=== PATIENT | male | born 1965 | race Caucasian/White ===

== ENCOUNTER 2016-08-30 19:56 | Inpatient (IN) | payer SELFPAY ==
--- NOTE | 2016-08-30 20:14 | HP ---
CIWA Score - CIWA Score Nausea/Vomitin Muscle Tremors: 2 Anxiety: 3 Agitation: 4-Moderately Restless Paroxysmal Sweats: 2 Orientation: 0-Oriented Tacttile Disturbances: 0-None Auditory Disturbances: 0-None Visual Disturbances: 0-None Headache: 1-Very Mild CIWA-Ar Total Score: 14 Admission ROS BHS - HPI Chief Complaint: WITHDRAWAL SYMPTOMS Allergies/Adverse Reactions: Allergies Allergy/AdvReac Type Severity Reaction Status Date / Time No Known Allergies Allergy Verified 08/30/16 20:16 History of Present Illness: 51 Y.O. MAN WITH AN EXTENSIVE HISTORY OF ALCOHOL DEPENDENCE IS SEEKING DETOX. THIS IS HIS FIRST TIME IN DETOX. THE PT. WAS DISCHARGED EARLIER IN THE DAY FROM [facility], WHERE HE WAS ADMITTED OVERNIGHT FOR INTOXICATION. HE REPORTS HAVING A 4 YEAR PERIOD OF SOBRIETY AND HAVING RECENTLY RELAPSED. Exam Limitations: No Limitations - Ebola screening Have you traveled outside of the country in the last 21 days: No (N) Have you had contact with anyone from an Ebola affected area: No Do you have a fever: No - Review of Systems Constitutional: Chills, Night Sweats, Changes in sleep EENT: reports: No Symptoms Reported Respiratory: reports: Shortness of Breath (H/O CHRONIC BRONCHITIS) Cardiac: reports: No Symptoms Reported GI: reports: No Symptoms Reported : reports: No Symptoms Reported Musculoskeletal: reports: Muscle Weakness Integumentary: reports: Bruising (B/L ARMS) Neuro: reports: Tremors Endocrine: reports: No Symptoms Reported Hematology: reports: No Symptoms Reported Psychiatric: reports: Orientated x3, Anxious, Depressed Other Systems: Reviewed and Negative Patient History - Patient Medical History Hx Anemia: No Hx Asthma: No Hx Chronic Obstructive Pulmonary Disease (COPD): Yes (CHRONIC BRONCHITIS ) Hx Cancer: No Hx Cardiac Disorders: No Hx Congestive Heart Failure: No Hx Hypertension: Yes (NOT NOT MEDS ) Hx Hypercholesterolemia: No Hx Pacemaker: No HX Cerebrovascular Accident: No Hx Seizures: No Hx Dementia: No Hx Diabetes: No Hx Gastrointestinal Disorders: No Hx Liver Disease: No Hx Genitourinary Disorders: No Hx Sexually Transmitted Disorders: No Hx Renal Disease (ESRD): No Hx Thyroid Disease: No Hx Human Immunodeficiency Virus (HIV): No Hx Hepatitis C: No Hx Depression: Yes Hx Suicide Attempt: No Hx Bipolar Disorder: No Hx Schizophrenia: No - Patient Surgical History Past Surgical History: Yes Hx Neurologic Surgery: No Hx Cataract Extraction: No Hx Cardiac Surgery: No Hx Lung Surgery: No Hx Breast Surgery: No Hx Breast Biopsy: No Hx Abdominal Surgery: No Hx Appendectomy: No Hx Cholecystectomy: No Hx Genitourinary Surgery: No Hx Orthopedic Surgery: Yes (B/L HIP REPLACEMENTS-1996) Anesthesia Reaction: No - PPD History Previous Implant?: Yes Documented Results: Negative w/o proof PPD to be Administered?: Yes - Reproductive History Patient is a Female of Child Bearing Age (11 -55 yrs old): No - Smoking Cessation Smoking history: Former smoker Have you smoked in the past 12 months: No Hx Chewing Tobacco Use: No Initiated information on smoking cessation: No - Substance & Tx. History Hx Alcohol Use: Yes Hx Substance Use: Yes Substance Use Type: Alcohol, Tranquilizers Hx Substance Use Treatment: Yes (REHAB ) - Substances Abused Alcohol Route: Oral Frequency: Daily Amount used: 2 PINTS OF VODKA Age of first use: 14 Date of Last Use: 08/29/16 XANAX Route: Oral Frequency: Daily Amount used: 2-6 MG Age of first use: 31 Date of Last Use: 08/30/16 Family Disease History - Family Disease History Family Disease History: Heart Disease: Mother (AFIB ), CA: Father (LUNG CA- ), Respiratory: Brother (ALCOHOL DEPENDENCE ), Other: Brother Admission Physical Exam [facility] - Vital Signs Vital Signs: Vital Signs 08/30/16 21:55 Temperature 97.7 F Pulse Rate 100 H Respiratory 18 Rate Blood Pressure 157/88 - Physical General Appearance: Yes: Anxious HEENTM: Yes: Hearing grossly Normal, Normal ENT Inspection, Normocephalic, Normal Voice Respiratory: Yes: Chest Non-Tender, Lungs Clear, Normal Breath Sounds, No Respiratory Distress, No Accessory Muscle Use Neck: Yes: No masses,lesions,Nodules, Trachea in good position Breast: Yes: Breast Exam Deferred Cardiology: Yes: Regular Rhythm, Regular Rate, S1, S2 Abdominal: Yes: Normal Bowel Sounds, Non Tender, Flat, Soft Genitourinary: Yes: Within Normal Limits Back: Yes: Normal Inspection Musculoskeletal: Yes: Muscle Pain Extremities: Yes: Normal Inspection, Normal Range of Motion, Non-Tender Neurological: Yes: Fully Oriented, Alert, Normal Mood/Affect, Normal Response Integumentary: Yes: Normal Color, Dry, Warm Lymphatic: Yes: Within Normal Limits - Diagnostic (1) Alcohol dependence with uncomplicated withdrawal Current Visit: Yes Status: Chronic (2) Sedative, hypnotic or anxiolytic dependence with withdrawal, uncomplicated Current Visit: Yes Status: Chronic (3) Hypertension Current Visit: Yes Status: Chronic (4) Chronic bronchitis Current Visit: Yes Status: Chronic Cleared for Admission BHS - Detox or Rehab S Level of Care: Medically Managed Detox Regimen/Protocol: Valium BHS Breath Alcohol Content Breath Alcohol Content: 0 Vital Signs - Vital Signs Vital Signs Refused: No Temperature: 97.7 F Temperature Source: Oral Pulse Rate: 100 Respiratory Rate: 18 Blood Pressure: 157/88 BP Location: Left Arm - Height Height: 6 ft - Weight Weight: 205 lb Weight Measurement Method: Standing Scale Body Mass Index (BMI): 27.8 Urine Drug Screen - Test Device Lot Number: [id number] Expiration Date: 05/13/18 - Control Is Test Valid: Yes - Results Drug Screen Negative: No Urine Drug Screen Results: RONNY-Cocaine, BZO-Benzodiazepines
[2016-08-30] MEDS ORDERED: ACETAMINOPHEN 325 MG TABLET (FP) PO PRN (20:36)
[2016-08-30] MEDS ORDERED: IBUPROFEN 400 MG TABLET (FP) PO PRN (20:36)
[2016-08-30] MEDS ORDERED: guaiFENesin/D-METHORPHAN HB 10 ML UNIT-DOSE CUPS PO PRN (20:36)
[2016-08-30] MEDS ORDERED: MAGNESIUM HYDROX 2400MG/30ML ORAL SUSPENSION 30 ML CUP PO PRN (20:36)
[2016-08-30] MEDS ORDERED: MAGNESIUM CITRATE 300 ML BOTTLE PO PRN (20:36)
[2016-08-30] MEDS ORDERED: MENTHOL/PHENOL 1 EACH UD MM PRN (20:36)
[2016-08-30] MEDS ORDERED: hydrOXYzine PAMOATE 50 MG CAPSULE (FP) PO PRN (20:36)
[2016-08-30] MEDS ORDERED: MAG HYDROX/AL HYDROX/SIMETH 30 ML UNIT-DOSE CUP PO PRN (20:36)
[2016-08-30] MEDS ORDERED: diphenhydrAMINE HCL 50 MG CAPSULE PO PRN (20:36)
[2016-08-30] MEDS ORDERED: LOPERAMIDE HCL 2 MG CAPSULE PO PRN (20:36)
[2016-08-30] MEDS ORDERED: P-EPHED 60MG/TRIPROLIDI 2.5MG TABLET PO PRN (20:36)
[2016-08-30] MEDS ORDERED: diazePAM 5 MG TABLET PO ONE (20:36)
[2016-08-30 20:43] VITALS: BMI 27.8
[2016-08-30] MEDS: THIAMINE HCL 100 MG TABLET (FP) PO SCH (23:10)
[2016-08-30] MEDS ORDERED: cloNIDine HCL 0.1 MG TABLET PO PRN (23:18)
[2016-08-30] MEDS: diazePAM 5 MG TABLET PO SCH (23:50)
[2016-08-31] MEDS: diazePAM 5 MG TABLET PO SCH ×3 (05:58→22:20)
[2016-08-31 10:07] LABS: URINE APPEARANCE CLEAR; URINE BILIRUBIN NEGATIVE (NEGATIVE); URINE BLOOD NEGATIVE (NEGATIVE); URINE COLOR YELLOW; URINE GLUCOSE (UA) NEGATIVE (NEGATIVE); URINE KETONE NEGATIVE (NEGATIVE); URINE LEUK ESTERASE NEGATIVE (NEGATIVE); URINE NITRITE NEGATIVE (NEGATIVE); URINE PROTEIN NEGATIVE (NEGATIVE); URINE UROBILINOGEN NEGATIVE E.U./dl (0.2-1.0)
[2016-08-31 10:08] LABS: MCH 32.4 pg (25.7-33.7); MCHC 33.9 g/dl (32.0-35.9); MEAN CELL VOLUME 95.7 fl (80-96); MEAN PLT VOLUME 8.4 fl (7.5-11.1); PLATELET COUNT 192 K/MM3 (134-434); RDW 12.8 % (11.9-15.9); WHITE BLOOD COUNT 8.4 K/mm3 (4.0-10.0)
--- NOTE | 2016-08-31 10:14 | PN ---
S CIWA - CIWA Score Nausea/Vomitin Muscle Tremors: 2 Anxiety: 2 Agitation: 2 Paroxysmal Sweats: 3 Orientation: 0-Oriented Tacttile Disturbances: 2-Mild Itch/Numbness/Burn Auditory Disturbances: 0-None Visual Disturbances: 0-None Headache: 0-None Present CIWA-Ar Total Score: 13 BHS Progress Note (SOAP) Subjective: interrupted sleep, sweats, tired , weaknesss Objective: 08/31/16 10:12 Vital Signs Temperature 98.1 F 08/31/16 10:10 Pulse Rate 77 08/31/16 10:10 Respiratory Rate 18 08/31/16 10:10 Blood Pressure 168/95 08/31/16 10:10 O2 Sat by Pulse Oximetry (%) Laboratory Tests 08/31/16 07:00 Urine Color Yellow Urine Appearance Clear Urine pH 6.0 Ur Specific [place] 1.027 Urine Protein Negative Urine Glucose (UA) Negative Urine Ketones Negative Urine Blood Negative Urine Nitrite Negative Urine Bilirubin Negative Urine Urobilinogen Negative Ur Leukocyte Esterase Negative pending labs pt aox3 in nad, lying in bed Assessment: 08/31/16 10:13 withdrawal sx;s Plan: cont. detox increase fluids
[2016-08-31] MEDS: PRENATAL VITAMINS W/ FOLIC ACID TABLET (FP) PO SCH (10:30)
[2016-08-31] MEDS: diazePAM 5 MG TABLET PO PRN ×2 (10:32→17:36)
[2016-08-31 10:42] LABS: ALBUMIN 3.8 g/dl (3.4-5.0); ALK PHOS 48 U/L (45-117); ANION GAP 10 (8-16); BILIRUBIN,TOTAL 1.1 mg/dL (0.2-1.0); CALCIUM 9.2 mg/dL (8.5-10.1); CO2 30 mmol/L (21-32); CREATININE 0.8 mg/dL (0.7-1.3); GLUCOSE,RANDOM 98 mg/dL (74-106); SGOT/AST 30 U/L (15-37); SGPT/ALT 38 U/L (12-78); TOT PROT 6.4 g/dl (6.4-8.2)
[2016-08-31 11:48] LABS: HIV 1 AGp24 NEGATIVE
[2016-08-31 11:49] LABS: HIV 1 & 2 AB NEGATIVE
[2016-08-31] MEDS: ALBUTEROL SO4 6.7 GM HFA INHALER IH PRN (17:36)
[2016-08-31] MEDS: THIAMINE HCL 100 MG TABLET (FP) PO SCH (22:20)
[2016-09-01] MEDS: diazePAM 5 MG TABLET PO PRN ×3 (03:50→18:43)
[2016-09-01] MEDS: cloNIDine HCL 0.1 MG TABLET PO SCH ×2 (10:29→22:15)
[2016-09-01] MEDS: diazePAM 5 MG TABLET PO SCH ×2 (10:29→22:15)
[2016-09-01] MEDS: PRENATAL VITAMINS W/ FOLIC ACID TABLET (FP) PO SCH (10:29)
--- NOTE | 2016-09-01 10:47 | PN ---
S CIWA - CIWA Score Nausea/Vomitin-No Nausea/No Vomiting Muscle Tremors: 4-Moderate,w/Arms Extend Anxiety: 3 Agitation: 4-Moderately Restless Paroxysmal Sweats: 3 Orientation: 0-Oriented Tacttile Disturbances: 0-None Auditory Disturbances: 0-None Visual Disturbances: 0-None Headache: 0-None Present CIWA-Ar Total Score: 14 BHS Progress Note (SOAP) Subjective: shakes sweats irritable dry throat anxious interrupted sleep i need to see psych for my panic attacks Objective: 09/01/16 10:45 Vital Signs Temperature 97.8 F 09/01/16 09:49 Pulse Rate 76 09/01/16 09:49 Respiratory Rate 18 09/01/16 09:49 Blood Pressure 160/97 09/01/16 09:49 O2 Sat by Pulse Oximetry (%) Laboratory Tests 08/31/16 08/31/16 08/31/16 07:00 07:00 07:00 WBC 8.4 RBC 4.18 Hgb 13.6 Hct 40.0 MCV 95.7 MCHC 33.9 RDW 12.8 Plt Count 192 MPV 8.4 Sodium 143 Potassium 3.7 Chloride 103 Carbon Dioxide 30 Anion Gap 10 BUN 19 H Creatinine 0.8 Creat Clearance w eGFR > 60 Random Glucose 98 Calcium 9.2 Total Bilirubin 1.1 H AST 30 ALT 38 Alkaline Phosphatase 48 Total Protein 6.4 Albumin 3.8 Urine Color Urine Appearance Urine pH Ur Specific [place] Urine Protein Urine Glucose (UA) Urine Ketones Urine Blood Urine Nitrite Urine Bilirubin Urine Urobilinogen Ur Leukocyte Esterase RPR Titer Nonreactive HIV 1&2 Antibody Screen HIV P24 Antigen 08/31/16 08/31/16 07:00 07:00 WBC RBC Hgb Hct MCV MCHC RDW Plt Count MPV Sodium Potassium Chloride Carbon Dioxide Anion Gap BUN Creatinine Creat Clearance w eGFR Random Glucose Calcium Total Bilirubin AST ALT Alkaline Phosphatase Total Protein Albumin Urine Color Yellow Urine Appearance Clear Urine pH 6.0 Ur Specific [place] 1.027 Urine Protein Negative Urine Glucose (UA) Negative Urine Ketones Negative Urine Blood Negative Urine Nitrite Negative Urine Bilirubin Negative Urine Urobilinogen Negative Ur Leukocyte Esterase Negative RPR Titer HIV 1&2 Antibody Screen Negative HIV P24 Antigen Negative awake/alert ambulating no acute distress Assessment: 09/01/16 10:46 withdrawal sx Plan: continue detox increase fluids throat lozenges prn psych ordered
--- NOTE | 2016-09-01 16:57 | EKG ---
Test Reason : Blood Pressure : / mmHG Vent. Rate : 079 BPM Atrial Rate : 079 BPM P-R Int : 168 ms QRS Dur : 106 ms QT Int : 366 ms P-R-T Axes : 034 -28 050 degrees QTc Int : 419 ms NORMAL SINUS RHYTHM POSSIBLE ANTEROSEPTAL INFARCT , AGE UNDETERMINED ABNORMAL ECG NO PREVIOUS ECGS AVAILABLE Confirmed by CONRAD PRESCOTT, TOIN ([id number]) on 09/01/2016 4:57:04 PM Referred By: Confirmed By:TONI MARTINES MD
--- NOTE | 2016-09-01 16:57 | EKG ---
Test Reason : Blood Pressure : / mmHG Vent. Rate : 073 BPM Atrial Rate : 073 BPM P-R Int : 170 ms QRS Dur : 108 ms QT Int : 392 ms P-R-T Axes : 064 -40 039 degrees QTc Int : 431 ms NORMAL SINUS RHYTHM WITH SINUS ARRHYTHMIA LEFT AXIS DEVIATION ABNORMAL ECG WHEN COMPARED WITH ECG OF 30-AUG-2016 20:36, R PROGRESSION HAS CHANGED, ? LEAD PLACEMENT Confirmed by TONI MARTINES MD ([id number]) on 09/01/2016 4:56:40 PM Referred By: Confirmed By:TONI MARTINES MD
--- NOTE | 2016-09-01 18:39 | CONSULT ---
[facility] Psychiatric Consult - Data Date of interview: 09/01/16 Admission source: [facility] Identifying data: First admission to [facility] for this 51 y/o male seeking detox treatment for alcohol,xanax and cocaine dependence. Substance Abuse History: - Smoking Cessation. Smoking history: Former smoker. Have you smoked in the past 12 months: No. Hx Chewing Tobacco Use: No. Initiated information on smoking cessation: No. - Substance & Tx. History. Hx Alcohol Use: Yes. Hx Substance Use: Yes. Substance Use Type: Alcohol, Tranquilizers. Hx Substance Use Treatment: Yes (REHAB ). - Substances Abused. Alcohol. Route: Oral. Frequency: Daily. Amount used: 2 PINTS OF VODKA. Age of first use: 14. Date of Last Use: 08/29/16. XANAX. Route: Oral. Frequency: Daily. Amount used: 2-6 MG. Age of first use: 31. Date of Last Use : 08/30/16. Confirmed by patient. Medical History: Bronchitis,hypertension and a history of bilateral hip replacement. Psychiatric History: No history of psychiatric hospitalizations.Diagnosed with Anxiety Disorder.No OPD care.Was initially prescribed xanax but the patient gradually escalated into buying the drug from street dealers.Mr Claudia denies history of suicide attempt (he,however,has a family history of completed suicide : brother committed suicide by jumping out of a window). Physical/Sexual Abuse/Trauma History: Patient denies sexual abuse. Additional Comment: Urine Drug Screen Results: RONNY-Cocaine, BZO- Benzodiazepines.Noted. Mental Status Exam - Mental Status Exam Alert and Oriented to: Time, Place, Person Cognitive Function: Good Patient Appearance: Well Groomed Mood: Hopeful, Euthymic Affect: Appropriate, Normal Range Patient Behavior: Fatigued, Appropriate, Cooperative Speech Pattern: Clear, Appropriate Voice Loudness: Normal Thought Process: Goal Oriented Thought Disorder: Not Present Hallucinations: Denies Suicidal Ideation: Denies Homicidal Ideation: Denies Insight/Judgement: Poor Sleep: Poorly, Difficulty falling asleep Appetite: Good Muscle strength/Tone: Normal Gait/Station: Normal Psychiatric Findings - Problem List ([place] 1, 2,3) (1) Alcohol dependence with uncomplicated withdrawal Current Visit: Yes Status: Acute (2) Sedative, hypnotic or anxiolytic dependence with withdrawal, uncomplicated Current Visit: Yes Status: Acute (3) Cocaine dependence Current Visit: Yes Status: Acute (4) Substance induced mood disorder Current Visit: Yes Status: Suspected (5) Chronic bronchitis Current Visit: Yes Status: Chronic (6) Hypertension Current Visit: Yes Status: Chronic (7) Insomnia Current Visit: Yes Status: Acute - Initial Treatment Plan Initial Treatment Plan: Psychoeducation.Detoxification.Zolpidem 10 mg po hs prn.Patient made aware of parasomnias.Observation.
[2016-09-01] MEDS: THIAMINE HCL 100 MG TABLET (FP) PO SCH (22:15)
[2016-09-01] MEDS: ZOLPIDEM TARTRATE 5 MG TABLET PO PRN (22:15)
[2016-09-02] MEDS: diazePAM 5 MG TABLET PO PRN ×4 (02:39→16:55)
[2016-09-02] MEDS: PRENATAL VITAMINS W/ FOLIC ACID TABLET (FP) PO SCH (10:20)
[2016-09-02] MEDS: cloNIDine HCL 0.1 MG TABLET PO SCH ×2 (10:20→22:50)
[2016-09-02] MEDS: diazePAM 5 MG TABLET PO SCH ×2 (10:21→22:50)
--- NOTE | 2016-09-02 11:02 | PN ---
BHS Progress Note (SOAP) Subjective: INTERRUPTED SLEEP, SWEATS, DIARRHEA, ANXIOUS Objective: 09/02/16 11:00 Vital Signs Temperature 98.2 F 09/02/16 09:58 Pulse Rate 82 09/02/16 09:58 Respiratory Rate 20 09/02/16 09:58 Blood Pressure 154/91 09/02/16 09:58 O2 Sat by Pulse Oximetry (%) Laboratory Tests 08/31/16 08/31/16 08/31/16 07:00 07:00 07:00 WBC 8.4 RBC 4.18 Hgb 13.6 Hct 40.0 MCV 95.7 MCHC 33.9 RDW 12.8 Plt Count 192 MPV 8.4 Sodium 143 Potassium 3.7 Chloride 103 Carbon Dioxide 30 Anion Gap 10 BUN 19 H Creatinine 0.8 Creat Clearance w eGFR > 60 Random Glucose 98 Calcium 9.2 Total Bilirubin 1.1 H AST 30 ALT 38 Alkaline Phosphatase 48 Total Protein 6.4 Albumin 3.8 Urine Color Urine Appearance Urine pH Ur Specific [place] Urine Protein Urine Glucose (UA) Urine Ketones Urine Blood Urine Nitrite Urine Bilirubin Urine Urobilinogen Ur Leukocyte Esterase RPR Titer Nonreactive HIV 1&2 Antibody Screen HIV P24 Antigen 08/31/16 08/31/16 07:00 07:00 WBC RBC Hgb Hct MCV MCHC RDW Plt Count MPV Sodium Potassium Chloride Carbon Dioxide Anion Gap BUN Creatinine Creat Clearance w eGFR Random Glucose Calcium Total Bilirubin AST ALT Alkaline Phosphatase Total Protein Albumin Urine Color Yellow Urine Appearance Clear Urine pH 6.0 Ur Specific [place] 1.027 Urine Protein Negative Urine Glucose (UA) Negative Urine Ketones Negative Urine Blood Negative Urine Nitrite Negative Urine Bilirubin Negative Urine Urobilinogen Negative Ur Leukocyte Esterase Negative RPR Titer HIV 1&2 Antibody Screen Negative HIV P24 Antigen Negative PT AOX3 IN NAD , ANXIOUS,AMBULATING Assessment: 09/02/16 11:01 WITHDRAWAL SX;S Plan: CONT. DETOX INCREASE DETOX [facility] PRN
[2016-09-02] MEDS: ALBUTEROL SO4 6.7 GM HFA INHALER IH PRN (18:49)
[2016-09-02] MEDS: ZOLPIDEM TARTRATE 5 MG TABLET PO PRN (22:50)
[2016-09-02] MEDS: THIAMINE HCL 100 MG TABLET (FP) PO SCH (22:50)
--- NOTE | 2016-09-03 09:04 | DS ---
[facility] Detox Discharge Summary Admission Date: 08/30/16 Discharge Date: 09/03/16 - History Present History: Alcohol Dependence, Cocaine Dependence, Sedative Dependence - Physical Exam Results Vital Signs: Vital Signs Temperature 98.8 F 09/03/16 07:16 Pulse Rate 67 09/03/16 07:16 Respiratory Rate 16 09/03/16 07:16 Blood Pressure 121/77 09/03/16 07:16 O2 Sat by Pulse Oximetry (%) - Treatment Hospital Course: Detox Protocol Followed, Detoxed Safely, Responded well, Discharged Condition Good, Rehab Referral Accepted - Medication Discharge Medications: Ambulatory Orders Albuterol Sulfate Inhaler - [Ventolin Hfa Inhaler -] 1 - 2 inh PO Q4H PRN - Diagnosis (1) Alcohol dependence with uncomplicated withdrawal Current Visit: Yes Status: Chronic (2) Cocaine dependence Current Visit: Yes Status: Chronic Qualifiers: Substance use status: uncomplicated Qualified Code(s): F14.20 - Cocaine dependence, uncomplicated (3) Insomnia Current Visit: Yes Status: Acute (4) Sedative, hypnotic or anxiolytic dependence with withdrawal, uncomplicated Current Visit: Yes Status: Chronic (5) Chronic bronchitis Current Visit: Yes Status: Chronic (6) Hypertension Current Visit: Yes Status: Chronic Qualifiers: Hypertension type: essential hypertension Qualified Code(s): I10 - Essential (primary) hypertension (7) Substance induced mood disorder Current Visit: Yes Status: Suspected - AMA Did Patient Leave Against Medical Advice: No
[2016-09-03 09:28] VITALS: BP 125/79; PULSE 74; TEMP 97
[2016-09-03] MEDS ORDERED: diazePAM 5 MG TABLET PO SCH (10:00)
[2016-09-03] MEDS: cloNIDine HCL 0.1 MG TABLET PO SCH (10:40)
[2016-09-03] MEDS: PRENATAL VITAMINS W/ FOLIC ACID TABLET (FP) PO SCH (10:40)
== END 2016-09-03 11:51 | disposition home or self-care (01) | DRG 774 ==
LOC: YASAS 19:56 → Y6N 20:12
PROVIDERS: ADMIT Internal Medicine Addiction Medicine; ATTEND Internal Medicine Addiction Medicine
PROC: HZ2ZZZZ Detoxification Services for Substance Abuse Treatment (ICD-10-PCS; principal; 2016-08-30)
DX: F13.230 Sedative, hypnotic or anxiolytic dependence with withdrawal, uncomplicated (principal); F10.230 Alcohol dependence with withdrawal, uncomplicated; F14.20 Cocaine dependence, uncomplicated; F19.24 Other psychoactive substance dependence with psychoactive substance-induced mood disorder; G47.00 Insomnia, unspecified; J42 Unspecified chronic bronchitis; I10 Essential (primary) hypertension; Z96.643 Presence of artificial hip joint, bilateral; Z87.891 Personal history of nicotine dependence
CPT/HCPCS: 36415; 80053; 81003; 85027; 86593; 87389; 93005; 93010

== ENCOUNTER 2018-09-10 11:37 | Inpatient (IN) | payer SELFPAY ==
[2018-09-10 11:44] VITALS: BMI 28.5
--- NOTE | 2018-09-10 11:49 | HP ---
CIWA Score Nausea/Vomitin Muscle Tremors: 4-Moderate,w/Arms Extend Anxiety: 4-Mod. Anxious/Guarded Agitation: 1-Slight > Activity Paroxysmal Sweats: 1-Minimal Palms Moist Orientation: 0-Oriented Tacttile Disturbances: 0-None Auditory Disturbances: 1-Very Mild Visual Disturbances: 1-Very Mild Sensitivity Headache: 2-Mild CIWA-Ar Total Score: 16 - Admission Criteria OASAS Guidelines: Admission for Medically Managed Detox: Requires at least one of the followin. CIWA greater than 12 2. Seizures within the past 24 hours 3. Delirium tremens within the past 24 hours 4. Hallucinations within the past 24 hours 5. Acute intervention needed for co occurring medical disorder 6. Acute intervention needed for co occurring psychiatric disorder 7. Severe withdrawal that cannot be handled at a lower level of care (continued vomiting, continued diarrhea, abnormal vital signs) requiring intravenous medication and/or fluids 8. Patient presents the following: CIWA greater than 12 Admission Criteria Met: Admission criteria met Admission ROS BHS - HPI Chief Complaint: I started drinking again to drown out the day before, it has to stop, I don't want to live that way. 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 No seizures but does have black outs. Has previously been in detox here in 2017. Exam Limitations: Clinical Condition - Ebola screening Have you traveled outside of the country in the last 21 days: No (N) Have you had contact with anyone from an Ebola affected area: No Have you been sick,other than usual withdrawal symptoms: No Do you have a fever: No - Review of Systems Constitutional: Loss of Appetite, Malaise, Night Sweats EENT: reports: No Symptoms Reported Respiratory: reports: Cough (states chronic since ) Cardiac: reports: No Symptoms Reported GI: reports: Diarrhea, Poor Appetite, Poor Fluid Intake, Indigestion : reports: Frequency Musculoskeletal: reports: Joint Stiffness (hip stiffness since joint replacement ) Integumentary: reports: Dryness Neuro: reports: Headache, Tremors Hematology: reports: No Symptoms Reported Psychiatric: reports: Judgement Intact, Mood/Affect Appropiate, Orientated x3, Anxious Other Systems: Reviewed and Negative Patient History - Patient Medical History Hx Anemia: No Hx Asthma: Yes (rarely needs inhaler) Hx Chronic Obstructive Pulmonary Disease (COPD): No Hx Cancer: No Hx Cardiac Disorders: No Hx Congestive Heart Failure: No Hx Hypertension: Yes (only due to etoh) Hx Hypercholesterolemia: No Hx Pacemaker: No HX Cerebrovascular Accident: No Hx Seizures: No Hx Dementia: No Hx Diabetes: No Hx Gastrointestinal Disorders: No Hx Liver Disease: No Hx Genitourinary Disorders: No Hx Sexually Transmitted Disorders: No Hx Renal Disease (ESRD): No Hx Thyroid Disease: No Hx Human Immunodeficiency Virus (HIV): No Hx Hepatitis C: No Hx Depression: Yes (just from drinking) Hx Suicide Attempt: No Hx Bipolar Disorder: No Hx Schizophrenia: No - Patient Surgical History Past Surgical History: Yes Hx Neurologic Surgery: No Hx Cataract Extraction: No Hx Cardiac Surgery: No Hx Lung Surgery: No Hx Breast Surgery: No Hx Breast Biopsy: No Hx Abdominal Surgery: No Hx Appendectomy: No Hx Cholecystectomy: No Hx Genitourinary Surgery: No Hx Orthopedic Surgery: Yes (B/L HIP REPLACEMENTS-1996) Anesthesia Reaction: No - PPD History Previous Implant?: Yes Documented Results: Negative w/proof Implanted On Prior R Admission?: Yes Date: 09/01/16 PPD to be Administered?: Yes - Reproductive History Patient is a Female of Child Bearing Age (11 -55 yrs old): No (male) - Smoking Cessation Smoking history: Former smoker Have you smoked in the past 12 months: No Hx Chewing Tobacco Use: No Initiated information on smoking cessation: No - Substance & Tx. History Hx Alcohol Use: Yes Hx Substance Use: Yes Substance Use Type: Alcohol, Cocaine Hx Substance Use Treatment: Yes (detox, rehab) - Substances Abused alcohol Route: Oral Frequency: Daily Amount used: twenty twelve oz beers Age of first use: 13 Date of Last Use: 09/09/18 cocaine Route: Inhalation Frequency: 1-2 times per week Amount used: 1/2 gram Age of first use: 18 Date of Last Use: 09/08/18 Family Disease History - Family Disease History Family Disease History: Heart Disease: Mother (living, AFIB ), CA: Father (LUNG CA- ), Respiratory: Brother (six, ALCOHOL DEPENDENCE ), Other: Brother, Sister (two ), Daughter (one age 31 -healthy) Admission Physical Exam [facility] - Vital Signs Vital Signs: Vital Signs - 24 hr 09/10/18 11:41 Temperature 97.7 F Pulse Rate 94 H Respiratory 18 Rate Blood Pressure 160/96 - Physical General Appearance: Yes: Nourished, Appropriately Dressed, Moderate Distress, Tremorous, Anxious HEENTM: Yes: EOMI, Hearing grossly Normal, Normocephalic, Normal Voice, Pharynx Normal Respiratory: Yes: No Respiratory Distress Neck: Yes: No masses,lesions,Nodules, Supple Breast: Yes: Breast Exam Deferred Cardiology: Yes: Regular Rhythm, Regular Rate Abdominal: Yes: Flat, Soft Genitourinary: Yes: Frequency Back: Yes: Decreased Range of Motion Musculoskeletal: Yes: Joint Stiffness Extremities: Yes: Normal Inspection Neurological: Yes: Fully Oriented, Alert, Normal Mood/Affect, Normal Response Integumentary: Yes: Normal Color, Dry, Warm Lymphatic: Yes: Within Normal Limits - Diagnostic (1) Alcohol dependence with uncomplicated withdrawal Current Visit: Yes Status: Chronic (2) Chronic bronchitis Current Visit: Yes Status: Chronic Qualifiers: Chronic bronchitis type: unspecified Qualified Code(s): J42 - Unspecified chronic bronchitis (3) Cocaine dependence Current Visit: Yes Status: Chronic Qualifiers: Substance use status: uncomplicated Qualified Code(s): F14.20 - Cocaine dependence, uncomplicated (4) Hypertension Current Visit: Yes Status: Chronic Qualifiers: Hypertension type: other secondary hypertension Qualified Code(s): I15.8 - Other secondary hypertension Comment: states only goes high when he drinks (5) History of hip replacement Current Visit: Yes Status: Chronic Qualifiers: Laterality: bilateral Qualified Code(s): Z96.643 - Presence of artificial hip joint, bilateral Cleared for Admission BHS - Detox or Rehab [facility] Level of Care: Medically Managed Detox Regimen/Protocol: Librium S Breath Alcohol Content Breath Alcohol Content: 0 Urine Drug Screen - Results Drug Screen Negative: No Urine Drug Screen Results: RONNY-Cocaine, BZO-Benzodiazepines Inpatient Rehab Admission - Rehab Decision to Admit Inpatient rehab admission?: No
[2018-09-10] MEDS ORDERED: METHOCARBAMOL 500 MG TABLET PO PRN (12:10)
[2018-09-10] MEDS ORDERED: MAG HYDROX/AL HYDROX/SIMETH 30 ML UNIT-DOSE CUP PO PRN (12:10)
[2018-09-10] MEDS ORDERED: BISMUTH SUBSALICYLATE 524 MG/30 ML UD PO PRN (12:10)
[2018-09-10] MEDS ORDERED: IBUPROFEN 400 MG TABLET (FP) PO PRN (12:10)
[2018-09-10] MEDS ORDERED: ACETAMINOPHEN 325 MG TABLET (FP) PO PRN ×2 (12:10)
[2018-09-10] MEDS ORDERED: MAGNESIUM HYDROX 2400MG/30ML ORAL SUSPENSION 30 ML CUP PO PRN (12:10)
[2018-09-10] MEDS ORDERED: MAGNESIUM CITRATE 300 ML BOTTLE PO PRN (12:10)
[2018-09-10] MEDS ORDERED: MENTHOL/PHENOL 1 EACH UD MM PRN (12:10)
[2018-09-10] MEDS ORDERED: chlordiazePOXIDE HCL 25 MG CAPSULE PO PRN (12:10)
[2018-09-10] MEDS ORDERED: chlordiazePOXIDE HCL 25 MG CAPSULE PO ONE (13:00)
[2018-09-10] MEDS: chlordiazePOXIDE HCL 25 MG CAPSULE PO SCH ×2 (17:38→22:08)
[2018-09-10] MEDS: THIAMINE HCL 100 MG TABLET (FP) PO SCH (22:08)
[2018-09-10] MEDS: MELATONIN 5 MG TABLETS PO PRN (22:08)
[2018-09-11] MEDS: chlordiazePOXIDE HCL 25 MG CAPSULE PO SCH ×4 (06:35→22:10)
[2018-09-11 10:32] LABS: HEMATOCRIT 38.5 % (35.4-49); HEMOGLOBIN 12.7 GM/dL (11.7-16.9); MCH 31.6 pg (25.7-33.7); MCHC 32.9 g/dl (32.0-35.9); MEAN CELL VOLUME 95.8 fl (80-96); MEAN PLT VOLUME 8.3 fl (7.5-11.1); PLATELET COUNT 215 K/MM3 (134-434); RBC 4.02 M/mm3 (4.00-5.60); RDW 13.8 % (11.9-15.9); WHITE BLOOD COUNT 5.7 K/mm3 (4.0-10.0)
[2018-09-11 10:43] LABS: ALBUMIN 3.1 g/dl (3.4-5.0); ALK PHOS 54 U/L (45-117); ANION GAP 5 MMOL/L (8-16); BILIRUBIN,TOTAL 0.6 mg/dL (0.2-1); BLOOD UREA NITROGEN 12 mg/dL (7-18); CALCIUM 8.3 mg/dL (8.5-10.1); CHLORIDE 106 mmol/L (98-107); CO2 28 mmol/L (21-32); CREATININE 0.8 mg/dL (0.55-1.3); GLUCOSE,RANDOM 98 mg/dL (74-106); POTASSIUM 3.6 mmol/L (3.5-5.1); SGOT/AST 21 U/L (15-37); SGPT/ALT 28 U/L (13-61); SODIUM 139 mmol/L (136-145); TOT PROT 6.1 g/dl (6.4-8.2)
[2018-09-11] MEDS: PRENATAL VITAMINS W/ FOLIC ACID TABLET (FP) PO SCH (10:43)
[2018-09-11] MEDS: hydrOXYzine PAMOATE 25 MG CAPSULE (FP) PO PRN ×3 (11:34→23:34)
--- NOTE | 2018-09-11 12:20 | PN ---
S CIWA - CIWA Score Nausea/Vomitin-No Nausea/No Vomiting Muscle Tremors: 3 Anxiety: 3 Agitation: 3 Paroxysmal Sweats: 3 Orientation: 0-Oriented Tacttile Disturbances: 0-None Auditory Disturbances: 0-None Visual Disturbances: 0-None Headache: 0-None Present CIWA-Ar Total Score: 12 S Progress Note (SOAP) Subjective: sweats shakes anxiety body aches restless Objective: 09/11/18 12:19 Vital Signs Temperature 97.7 F 09/11/18 09:57 Pulse Rate 66 09/11/18 09:57 Respiratory Rate 18 09/11/18 09:57 Blood Pressure 148/87 09/11/18 09:57 O2 Sat by Pulse Oximetry (%) Laboratory Tests 09/11/18 09/11/18 09/11/18 07:30 07:30 07:30 WBC 5.7 RBC 4.02 Hgb 12.7 Hct 38.5 MCV 95.8 MCH 31.6 MCHC 32.9 RDW 13.8 Plt Count 215 MPV 8.3 Sodium 139 Potassium 3.6 Chloride 106 Carbon Dioxide 28 Anion Gap 5 L BUN 12 Creatinine 0.8 Creat Clearance w eGFR 101.51 Random Glucose 98 Calcium 8.3 L Total Bilirubin 0.6 AST 21 ALT 28 Alkaline Phosphatase 54 Total Protein 6.1 L Albumin 3.1 L RPR Titer Nonreactive aaox3 ambulating no acute distress Assessment: 09/11/18 12:20 withdrawal sx Plan: continue detox increase fluids
[2018-09-11] MEDS: THIAMINE HCL 100 MG TABLET (FP) PO SCH (22:10)
[2018-09-11] MEDS: MELATONIN 5 MG TABLETS PO PRN (23:34)
[2018-09-12] MEDS: chlordiazePOXIDE HCL 25 MG CAPSULE PO SCH ×2 (05:57→10:21)
--- NOTE | 2018-09-12 10:06 | PN ---
S CIWA - CIWA Score Nausea/Vomitin-No Nausea/No Vomiting Muscle Tremors: 2 Anxiety: 3 Agitation: 3 Paroxysmal Sweats: 2 Orientation: 0-Oriented Tacttile Disturbances: 0-None Auditory Disturbances: 0-None Visual Disturbances: 0-None Headache: 0-None Present CIWA-Ar Total Score: 10 S Progress Note (SOAP) Subjective: sweats mild shakes feeling much better anxiety Objective: 09/12/18 10:05 Vital Signs Temperature 97.3 F L 09/12/18 08:52 Pulse Rate 72 09/12/18 08:52 Respiratory Rate 18 09/12/18 08:52 Blood Pressure 151/85 09/12/18 08:52 O2 Sat by Pulse Oximetry (%) Laboratory Tests 09/11/18 09/11/18 09/11/18 07:30 07:30 07:30 WBC 5.7 RBC 4.02 Hgb 12.7 Hct 38.5 MCV 95.8 MCH 31.6 MCHC 32.9 RDW 13.8 Plt Count 215 MPV 8.3 Sodium 139 Potassium 3.6 Chloride 106 Carbon Dioxide 28 Anion Gap 5 L BUN 12 Creatinine 0.8 Creat Clearance w eGFR 101.51 Random Glucose 98 Calcium 8.3 L Total Bilirubin 0.6 AST 21 ALT 28 Alkaline Phosphatase 54 Total Protein 6.1 L Albumin 3.1 L RPR Titer Nonreactive aaox3 ambulating no acute distress Assessment: 09/12/18 10:06 withdrawal sx Plan: continue detox increase fluids
[2018-09-12] MEDS: PRENATAL VITAMINS W/ FOLIC ACID TABLET (FP) PO SCH (10:21)
[2018-09-12] MEDS ORDERED: chlordiazePOXIDE HCL 10 MG CAPSULE PO SCH (17:00)
[2018-09-12] MEDS ORDERED: chlordiazePOXIDE HCL 10 MG CAPSULE PO PRN (17:00)
[2018-09-12 17:17] VITALS: BP 147/88; PULSE 75; TEMP 97.7
--- NOTE | 2018-09-12 17:36 | PN ---
[facility] Progress Note Note: Patient scheduled for discharge in am but states withdrawal symptoms are resolved since this a.m. States family members have time to pick him up this evening. No home medications needed. Patient has spoken to counselor regarding discharge. Patient is being discharged and encouraged to seek community support.
--- NOTE | 2018-09-12 17:37 | DS ---
[facility] Detox Discharge Summary Admission Date: 09/10/18 Discharge Date: 09/12/18 - History Present History: Alcohol Dependence Pertinent Past History: Alcohol withdrawal Hx cocaine use disorder. PMHx: Secondary HTN r/t NICANOR not on medications; Bronchitis - Physical Exam Results Vital Signs: Vital Signs Temperature 97.7 F 09/12/18 17:17 Pulse Rate 75 09/12/18 17:17 Respiratory Rate 18 09/12/18 17:17 Blood Pressure 147/88 09/12/18 17:17 O2 Sat by Pulse Oximetry (%) Pertinent Admission Physical Exam Findings: 53 yo admitted for alcohol detox. Hx cocaine use disorder. Laboratory Last Values WBC 5.7 K/mm3 (4.0-10.0) 09/11/18 07:30 RBC 4.02 M/mm3 (4.00-5.60) 09/11/18 07:30 Hgb 12.7 GM/dL (11.7-16.9) 09/11/18 07:30 Hct 38.5 % (35.4-49) 09/11/18 07:30 MCV 95.8 fl (80-96) 09/11/18 07:30 MCH 31.6 pg (25.7-33.7) 09/11/18 07:30 MCHC 32.9 g/dl (32.0-35.9) 09/11/18 07:30 RDW 13.8 % (11.9-15.9) 09/11/18 07:30 Plt Count 215 K/MM3 (134-434) 09/11/18 07:30 MPV 8.3 fl (7.5-11.1) 09/11/18 07:30 Sodium 139 mmol/L (136-145) 09/11/18 07:30 Potassium 3.6 mmol/L (3.5-5.1) 09/11/18 07:30 Chloride 106 mmol/L (98-107) 09/11/18 07:30 Carbon Dioxide 28 mmol/L (21-32) 09/11/18 07:30 Anion Gap 5 MMOL/L (8-16) L 09/11/18 07:30 BUN 12 mg/dL (7-18) 09/11/18 07:30 Creatinine 0.8 mg/dL (0.55-1.3) 09/11/18 07:30 Creat Clearance w eGFR 101.51 (>60) 09/11/18 07:30 Random Glucose 98 mg/dL (74-106) 09/11/18 07:30 Calcium 8.3 mg/dL (8.5-10.1) L 09/11/18 07:30 Total Bilirubin 0.6 mg/dL (0.2-1) 09/11/18 07:30 AST 21 U/L (15-37) 09/11/18 07:30 ALT 28 U/L (13-61) 09/11/18 07:30 Alkaline Phosphatase 54 U/L (45-117) 09/11/18 07:30 Total Protein 6.1 g/dl (6.4-8.2) L 09/11/18 07:30 Albumin 3.1 g/dl (3.4-5.0) L 09/11/18 07:30 RPR Titer Nonreactive (NONREACTIVE) 09/11/18 07:30 Labs reviewed. - Treatment Hospital Course: Detox Protocol Followed, Detoxed Safely, Responded well, Discharged Condition Good - Medication Discharge Medications: Ambulatory Orders Albuterol Sulfate Inhaler - [Ventolin Hfa Inhaler -] 1 - 2 inh PO Q4H PRN - Diagnosis (1) Alcohol dependence with uncomplicated withdrawal Status: Chronic (2) Cocaine dependence Status: Chronic Qualifiers: Substance use status: uncomplicated Qualified Code(s): F14.20 - Cocaine dependence, uncomplicated (3) Hypertension Status: Chronic Qualifiers: Hypertension type: other secondary hypertension Qualified Code(s): I15.8 - Other secondary hypertension - AMA Did Patient Leave Against Medical Advice: No
[2018-09-13] MEDS ORDERED: chlordiazePOXIDE HCL 10 MG CAPSULE PO SCH (17:00)
== END 2018-09-12 17:30 | disposition home or self-care (01) | DRG 774 ==
LOC: YASAS 11:37 → Y6N 13:49
PROVIDERS: ADMIT Surgery; ATTEND Surgery
PROC: HZ2ZZZZ Detoxification Services for Substance Abuse Treatment (ICD-10-PCS; principal; 2018-09-10)
DX: F10.230 Alcohol dependence with withdrawal, uncomplicated (principal); F14.20 Cocaine dependence, uncomplicated; F32.9 Major depressive disorder, single episode, unspecified; J42 Unspecified chronic bronchitis; Z96.643 Presence of artificial hip joint, bilateral
CPT/HCPCS: 36415; 80053; 85027; 86593

== ENCOUNTER 2019-01-22 12:41 | Inpatient (IN) | payer OTHER ==
[2019-01-22 15:24] VITALS: BMI 29.0
--- NOTE | 2019-01-22 19:33 | HP ---
CIWA Score Nausea/Vomitin Muscle Tremors: 2 Anxiety: 3 Agitation: 3 Paroxysmal Sweats: 1-Minimal Palms Moist Orientation: 0-Oriented Tacttile Disturbances: 1-Very Mild Itch/Numbness Auditory Disturbances: 0-None Visual Disturbances: 0-None Headache: 2-Mild CIWA-Ar Total Score: 14 - Admission Criteria OASAS Guidelines: Admission for Medically Managed Detox: Requires at least one of the followin. CIWA greater than 12 2. Seizures within the past 24 hours 3. Delirium tremens within the past 24 hours 4. Hallucinations within the past 24 hours 5. Acute intervention needed for co occurring medical disorder 6. Acute intervention needed for co occurring psychiatric disorder 7. Severe withdrawal that cannot be handled at a lower level of care (continued vomiting, continued diarrhea, abnormal vital signs) requiring intravenous medication and/or fluids 8. Admission ROS S - HPI Chief Complaint: i need help to stop drinking alcohol Allergies/Adverse Reactions: Allergies Allergy/AdvReac Type Severity Reaction Status Date / Time codeine Allergy Intermediate Elevated Verified 01/22/19 15:16 Blood Pressure History of Present Illness: this 53 years old male with alcohol dependence,seeking detox from alcohol, withdrawal symptom syncope alcohol related denied seizure hypertension on med on xanax prescribed had previous admissions before,last detox 09/10/18 to 09/12/18 longest sobriety from 2006 to 2011 depression,anxiety plan for out patient or rehab Exam Limitations: No Limitations - Ebola screening Have you traveled outside of the country in the last 21 days: No (N) Have you had contact with anyone from an Ebola affected area: No Do you have a fever: No - Review of Systems Constitutional: Loss of Appetite, Malaise, Night Sweats, Changes in sleep, Weakness EENT: reports: Nose Congestion Respiratory: reports: No Symptoms reported, Other (asthma) Cardiac: reports: No Symptoms Reported GI: reports: Nausea, Vomiting, Abdominal cramping : reports: No Symptoms Reported Musculoskeletal: reports: Back Pain, Muscle Pain Integumentary: reports: Dryness Neuro: reports: Headache, Tremors Endocrine: reports: No Symptoms Reported Hematology: reports: No Symptoms Reported Psychiatric: reports: No Sypmtoms Reported, Judgement Intact, Mood/Affect Appropiate, Orientated x3, Anxious, Depressed Other Systems: Reviewed and Negative Patient History - Patient Medical History Hx Anemia: No Hx Asthma: Yes (on albuterol inhaler) Hx Chronic Obstructive Pulmonary Disease (COPD): No Hx Cancer: No Hx Cardiac Disorders: No Hx Congestive Heart Failure: No Hx Hypertension: Yes (on med) Hx Hypercholesterolemia: No Hx Pacemaker: No HX Cerebrovascular Accident: No Hx Seizures: No Hx Dementia: No Hx Diabetes: No Hx Gastrointestinal Disorders: No Hx Liver Disease: No Hx Genitourinary Disorders: No Hx Sexually Transmitted Disorders: No Hx Renal Disease (ESRD): No Hx Thyroid Disease: No Hx Human Immunodeficiency Virus (HIV): No (last 11/30) Hx Hepatitis C: No Hx Depression: Yes (anxiety) Hx Suicide Attempt: No Hx Bipolar Disorder: No Hx Schizophrenia: No Other Medical History: no suiidal,no homicidal - Patient Surgical History Past Surgical History: Yes Hx Neurologic Surgery: No Hx Cataract Extraction: No Hx Cardiac Surgery: No Hx Lung Surgery: No Hx Breast Surgery: No Hx Breast Biopsy: No Hx Abdominal Surgery: No Hx Appendectomy: No Hx Cholecystectomy: No Hx Genitourinary Surgery: No Hx Orthopedic Surgery: Yes (B/L HIP REPLACEMENTS-) Anesthesia Reaction: No - PPD History Previous Implant?: Yes Documented Results: Negative w/proof Implanted On Prior R Admission?: Yes Date: 09/12/18 Results: 0 mm PPD to be Administered?: No - Smoking Cessation Smoking history: Former smoker Have you smoked in the past 12 months: No Hx Chewing Tobacco Use: No Initiated information on smoking cessation: No - Substance & Tx. History Hx Alcohol Use: Yes Hx Substance Use: No Substance Use Type: Alcohol Hx Substance Use Treatment: Yes ([facility] 09/10/18 to 09/12/18) - Substances abused Alcohol Substance route: Oral Frequency: Daily Amount used: 1-2 liters of Vodka/day.!8-24 beers (12oz) Age of first use: 14 Date of last use: 01/22/19 Family Disease History - Family Disease History Family Disease History: Heart Disease: Mother (living, AFIB ), CA: Father (LUNG CA- ), Respiratory: Brother (six, ALCOHOL DEPENDENCE ), Other: Brother, Sister (two ), Daughter (one age 31 -healthy) Admission Physical Exam BHS - Vital Signs Vital Signs: Vital Signs - 24 hr 01/22/19 15:21 Temperature 97.5 F L Pulse Rate 89 Respiratory 18 Rate Blood Pressure 163/108 H - Physical General Appearance: Yes: Moderate Distress, Tremorous, Irritable, Sweating HEENTM: Yes: Normal ENT Inspection, RAÚL, Pharynx Normal Respiratory: Yes: Lungs Clear, Normal Breath Sounds, No Respiratory Distress Neck: Yes: Within Normal Limits, Supple, Trachea in good position Breast: Yes: Within Normal Limits Cardiology: Yes: Within Normal Limits, Regular Rhythm, Regular Rate, S1, S2 Abdominal: Yes: Within Normal Limits, Normal Bowel Sounds, Non Tender, Flat, Soft Genitourinary: Yes: Within Normal Limits Back: Yes: Muscle Spasm Musculoskeletal: Yes: Back pain, Muscle Pain Extremities: Yes: Tremors Neurological: Yes: 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 intact, Fully Oriented, Alert, Motor Strength 5/5 Integumentary: Yes: Dry Lymphatic: Yes: Within Normal Limits - Diagnostic (1) Alcohol dependence with uncomplicated withdrawal Current Visit: No Status: Chronic (2) Cocaine dependence Current Visit: No Status: Chronic Qualifiers: Substance use status: uncomplicated Qualified Code(s): F14.20 - Cocaine dependence, uncomplicated (3) History of hip replacement Current Visit: No Status: Chronic Qualifiers: Laterality: bilateral Qualified Code(s): Z96.643 - Presence of artificial hip joint, bilateral (4) Hypertension Current Visit: No Status: Chronic Qualifiers: Hypertension type: other secondary hypertension Qualified Code(s): I15.8 - Other secondary hypertension Comment: states only goes high when he drinks (5) Sedative, hypnotic or anxiolytic dependence with withdrawal, uncomplicated Current Visit: No Status: Chronic (6) Syncope Current Visit: Yes Status: Acute (7) Anxiety and depression Current Visit: Yes Status: Acute (8) History of bilateral hip replacements Current Visit: Yes Status: Acute Cleared for Admission S - Detox or Rehab [facility] Level of Care: Medically Managed Detox Regimen/Protocol: Librium Breathalyzer - Breathalyzer Breathalyzer: 0.101 Urine Drug Screen - Test Device Lot number: [id number] Expiration date: 10/11/20 - Control Is test valid?: Yes - Results Drug screen NEGATIVE: No Urine drug screen results: THC-Marijuana, RONNY-Cocaine, MOP-Opiates, BZO- Benzodiazepines Inpatient Rehab Admission - Rehab Decision to Admit Inpatient rehab admission?: No
[2019-01-22] MEDS ORDERED: MAG HYDROX/AL HYDROX/SIMETH 30 ML UNIT-DOSE CUP PO PRN (19:40)
[2019-01-22] MEDS ORDERED: MELATONIN 5 MG TABLETS PO PRN (19:40)
[2019-01-22] MEDS ORDERED: chlordiazePOXIDE HCL 25 MG CAPSULE PO PRN (19:40)
[2019-01-22] MEDS ORDERED: hydrOXYzine PAMOATE 25 MG CAPSULE (FP) PO PRN (19:40)
[2019-01-22] MEDS ORDERED: ACETAMINOPHEN 325 MG TABLET (FP) PO PRN ×2 (19:40)
[2019-01-22] MEDS ORDERED: MAGNESIUM CITRATE 300 ML BOTTLE PO PRN (19:40)
[2019-01-22] MEDS ORDERED: METHOCARBAMOL 500 MG TABLET PO PRN (19:40)
[2019-01-22] MEDS ORDERED: BISMUTH SUBSALICYLATE 524 MG/30 ML UD PO PRN (19:40)
[2019-01-22] MEDS ORDERED: MENTHOL/PHENOL 1 EACH UD MM PRN (19:40)
[2019-01-22] MEDS ORDERED: IBUPROFEN 400 MG TABLET (FP) PO PRN (19:40)
[2019-01-22] MEDS ORDERED: MAGNESIUM HYDROX 2400MG/30ML ORAL SUSPENSION 30 ML CUP PO PRN (19:40)
[2019-01-22] MEDS ORDERED: ALBUTEROL SO4 8 GM HFA INHALER IH PRN (19:45)
[2019-01-22] MEDS: THIAMINE HCL 100 MG TABLET (FP) PO SCH (22:10)
[2019-01-22] MEDS: cloNIDine HCL 0.1 MG TABLET PO SCH (22:11)
[2019-01-22] MEDS: chlordiazePOXIDE HCL 25 MG CAPSULE PO SCH (22:11)
[2019-01-23] MEDS: chlordiazePOXIDE HCL 25 MG CAPSULE PO SCH ×4 (05:32→22:15)
[2019-01-23] MEDS: PRENATAL VITAMINS W/ FOLIC ACID TABLET (FP) PO SCH (10:21)
[2019-01-23] MEDS: ESCITALOPRAM OXALATE 10 MG TABLET (FP) PO SCH (10:21)
[2019-01-23] MEDS: cloNIDine HCL 0.1 MG TABLET PO SCH ×2 (10:21→22:14)
[2019-01-23 10:38] LABS: ALBUMIN 3.3 g/dl (3.4-5.0); BILIRUBIN,TOTAL 0.9 mg/dL (0.2-1); BLOOD UREA NITROGEN 15.6 mg/dL (7-18); CALCIUM 8.6 mg/dL (8.5-10.1); CREATININE 0.7 mg/dL (0.55-1.3); POTASSIUM 3.8 mmol/L (3.5-5.1); TOT PROT 6.1 g/dl (6.4-8.2)
--- NOTE | 2019-01-23 11:09 | PN ---
S CIWA - CIWA Score Nausea/Vomitin-Mild Nausea/No Vomiting Muscle Tremors: 4-Moderate,w/Arms Extend Anxiety: 3 Agitation: 2 Paroxysmal Sweats: 2 Orientation: 0-Oriented Tacttile Disturbances: 0-None Auditory Disturbances: 0-None Visual Disturbances: 0-None Headache: 1-Very Mild CIWA-Ar Total Score: 13 S Progress Note (SOAP) Subjective: 53 years old male admitted on 01/22/19 for acute alcohol withdrawal sx management doing well with librium detox protocol tremor otherwise feeling ok but restlessness muscle cramping encourage muscle relaxant as well as begin neurontin as supportive measurement modify robaxin 500 mg for muscle spasm regimen for comfort Objective: 01/23/19 11:13 Vital Signs Temperature 98.1 F 01/23/19 09:34 Pulse Rate 72 01/23/19 09:34 Respiratory Rate 18 01/23/19 09:34 Blood Pressure 125/77 01/23/19 09:34 O2 Sat by Pulse Oximetry (%) Laboratory Last Values Sodium 144 mmol/L (136-145) 01/23/19 07:00 Potassium 3.8 mmol/L (3.5-5.1) 01/23/19 07:00 Chloride 106 mmol/L (98-107) 01/23/19 07:00 Carbon Dioxide 33 mmol/L (21-32) H 01/23/19 07:00 Anion Gap 6 MMOL/L (8-16) L 01/23/19 07:00 BUN 15.6 mg/dL (7-18) 01/23/19 07:00 Creatinine 0.7 mg/dL (0.55-1.3) 01/23/19 07:00 Est GFR (CKD-EPI)AfAm 125.75 01/23/19 07:00 Est GFR (CKD-EPI)NonAf 108.50 01/23/19 07:00 Random Glucose 90 mg/dL (74-106) 01/23/19 07:00 Calcium 8.6 mg/dL (8.5-10.1) 01/23/19 07:00 Total Bilirubin 0.9 mg/dL (0.2-1) 01/23/19 07:00 AST 21 U/L (15-37) 01/23/19 07:00 ALT 30 U/L (13-61) 01/23/19 07:00 Alkaline Phosphatase 96 U/L (45-117) 01/23/19 07:00 Total Protein 6.1 g/dl (6.4-8.2) L 01/23/19 07:00 Albumin 3.3 g/dl (3.4-5.0) L 01/23/19 07:00 RPR Titer Nonreactive (NONREACTIVE) 01/23/19 07:00 lab noted Assessment: 01/23/19 11:13 alcohol withdrawal sx alert oriented x 3 breath ease and even ambulating on hallway Plan: continue librium detox regimen begin neurontin 100 mg po tid
[2019-01-23 12:10] LABS: HEMATOCRIT 38.1 % (35.4-49); HEMOGLOBIN 13.2 GM/dL (11.7-16.9); MCH 32.8 pg (25.7-33.7); MCHC 34.5 g/dl (32.0-35.9); MEAN CELL VOLUME 95.2 fl (80-96); MEAN PLT VOLUME 8.5 fl (7.5-11.1); PLATELET COUNT 217 K/MM3 (134-434); RBC 4.01 M/mm3 (4.00-5.60); RDW 13.7 % (11.9-15.9); WHITE BLOOD COUNT 5.2 K/mm3 (4.0-10.0)
[2019-01-23] MEDS: GABAPENTIN 100 MG CAPSULE (FP) PO SCH ×2 (14:16→22:15)
[2019-01-23] MEDS: METHOCARBAMOL 500 MG TABLET PO SCH ×2 (14:17→22:15)
--- NOTE | 2019-01-23 14:47 | CONSULT ---
[facility] Psychiatric Consult - Data Date of interview: 01/23/19 Admission source: [facility] Identifying data: First admission to [facility] for this 51 y/o male seeking detox treatment for alcohol,xanax and cocaine dependence. Substance Abuse History: Smoking history: Former smoker. Have you smoked in the past 12 months: No. Hx Chewing Tobacco Use: No. Initiated information on smoking cessation: No. - Substance & Tx. History. Hx Alcohol Use: Yes. Hx Substance Use: No. Substance Use Type: Alcohol. Hx Substance Use Treatment: Yes ([facility] 09/10/18 to 09/12/18). - Substances abused. Alcohol. Substance route: Oral. Frequency: Daily. Amount used: 1-2 liters of Vodka/day.!8-24 beers (12oz). Age of first use: 14. Date of last use: 01/22/19 Medical History: Medical profile is remarkable for bronchial asthma, hypertension and a history of bilateral hip replacement. Psychiatric History: Patient denies history of psychiatric hospitalizations. Mr Taylor endorses the diagnoses of MDD and Anxiety Disorder. He sees a psychiatrist at the [facility] in [facility] for medication management (lexapro + xanax). Patient admits to buying xanax in the streets (as well). Mr Taylor denies history of suicide attempts. Family history of completed suicide : brother committed suicide by jumping out of a window). Physical/Sexual Abuse/Trauma History: Family history of completed suicide : brother committed suicide by jumping out of a window). Additional Comment: Urine drug screen results: THC-Marijuana, RONNY-Cocaine, MOP- Opiates, BZO-Benzodiazepines. Noted. Mental Status Exam - Mental Status Exam Alert and Oriented to: Time, Place, Person Cognitive Function: Good Patient Appearance: Well Groomed Mood: Withdrawn Affect: Mood Congruent, Constricted Patient Behavior: Fatigued, Appropriate, Cooperative Speech Pattern: Clear, Appropriate Voice Loudness: Normal Thought Process: Intact, Goal Oriented Thought Disorder: Not Present Hallucinations: Denies Suicidal Ideation: Denies Homicidal Ideation: Denies Insight/Judgement: Poor Sleep: Well Appetite: Good Muscle strength/Tone: Normal Gait/Station: Normal Psychiatric Findings - Problem List ([place] 1, 2,3) (1) Alcohol dependence with uncomplicated withdrawal Status: Acute (2) Sedative, hypnotic or anxiolytic dependence with withdrawal, uncomplicated Status: Acute (3) Cocaine dependence Status: Chronic Qualifiers: Substance use status: uncomplicated Qualified Code(s): F14.20 - Cocaine dependence, uncomplicated (4) Substance induced mood disorder Status: Chronic (5) History of depression Status: Chronic - Initial Treatment Plan Initial Treatment Plan: Psychoeducation. Detoxification. Sleep hygiene. Lexapro 10 mg po daily. Side effects/benefits discussed with patient. Verbal consent granted to patient. Observation.
[2019-01-23] MEDS ORDERED: COLLOIDAL OATMEAL 1 BAR EACH TP PRN (15:48)
[2019-01-23] MEDS: THIAMINE HCL 100 MG TABLET (FP) PO SCH (22:15)
[2019-01-23] MEDS: QUEtiapine FUMARATE 50 MG TABLET PO SCH (22:15)
[2019-01-24] MEDS: GABAPENTIN 100 MG CAPSULE (FP) PO SCH ×3 (06:18→22:20)
[2019-01-24] MEDS: METHOCARBAMOL 500 MG TABLET PO SCH ×3 (06:18→22:20)
[2019-01-24] MEDS: chlordiazePOXIDE HCL 25 MG CAPSULE PO SCH ×4 (06:19→22:20)
[2019-01-24] MEDS: ESCITALOPRAM OXALATE 10 MG TABLET (FP) PO SCH (10:08)
[2019-01-24] MEDS: PRENATAL VITAMINS W/ FOLIC ACID TABLET (FP) PO SCH (10:09)
[2019-01-24] MEDS: cloNIDine HCL 0.1 MG TABLET PO SCH ×2 (10:10→22:20)
--- NOTE | 2019-01-24 12:32 | PN ---
S CIWA - CIWA Score Nausea/Vomitin Muscle Tremors: 2 Anxiety: 3 Agitation: 2 Paroxysmal Sweats: 1-Minimal Palms Moist Orientation: 0-Oriented Tacttile Disturbances: 1-Very Mild Itch/Numbness Auditory Disturbances: 0-None Visual Disturbances: 0-None Headache: 2-Mild CIWA-Ar Total Score: 13 S Progress Note (SOAP) Subjective: alert,irritable,anxious,interrupted sleep,tremor Objective: 01/24/19 12:30 Vital Signs Temperature 96.4 F L 01/24/19 09:19 Pulse Rate 84 01/24/19 09:19 Respiratory Rate 18 01/24/19 09:19 Blood Pressure 109/68 01/24/19 09:19 O2 Sat by Pulse Oximetry (%) Laboratory Last Values WBC 5.2 K/mm3 (4.0-10.0) 01/23/19 07:00 RBC 4.01 M/mm3 (4.00-5.60) 01/23/19 07:00 Hgb 13.2 GM/dL (11.7-16.9) 01/23/19 07:00 Hct 38.1 % (35.4-49) 01/23/19 07:00 MCV 95.2 fl (80-96) 01/23/19 07:00 MCH 32.8 pg (25.7-33.7) 01/23/19 07:00 MCHC 34.5 g/dl (32.0-35.9) 01/23/19 07:00 RDW 13.7 % (11.9-15.9) 01/23/19 07:00 Plt Count 217 K/MM3 (134-434) 01/23/19 07:00 MPV 8.5 fl (7.5-11.1) 01/23/19 07:00 Sodium 144 mmol/L (136-145) 01/23/19 07:00 Potassium 3.8 mmol/L (3.5-5.1) 01/23/19 07:00 Chloride 106 mmol/L (98-107) 01/23/19 07:00 Carbon Dioxide 33 mmol/L (21-32) H 01/23/19 07:00 Anion Gap 6 MMOL/L (8-16) L 01/23/19 07:00 BUN 15.6 mg/dL (7-18) 01/23/19 07:00 Creatinine 0.7 mg/dL (0.55-1.3) 01/23/19 07:00 Est GFR (CKD-EPI)AfAm 125.75 01/23/19 07:00 Est GFR (CKD-EPI)NonAf 108.50 01/23/19 07:00 Random Glucose 90 mg/dL (74-106) 01/23/19 07:00 Calcium 8.6 mg/dL (8.5-10.1) 01/23/19 07:00 Total Bilirubin 0.9 mg/dL (0.2-1) 01/23/19 07:00 AST 21 U/L (15-37) 01/23/19 07:00 ALT 30 U/L (13-61) 01/23/19 07:00 Alkaline Phosphatase 96 U/L (45-117) 01/23/19 07:00 Total Protein 6.1 g/dl (6.4-8.2) L 01/23/19 07:00 Albumin 3.3 g/dl (3.4-5.0) L 01/23/19 07:00 RPR Titer Nonreactive (NONREACTIVE) 01/23/19 07:00 Assessment: 01/24/19 12:31 withdrawal symptom Plan: continue detox librium regimen
[2019-01-24 17:17] LABS: PH,URINE 7.5 (5.0-8.0); URINE APPEARANCE TURBID; URINE BILIRUBIN NEGATIVE (NEGATIVE); URINE COLOR YELLOW; URINE GLUCOSE (UA) NEGATIVE (NEGATIVE); URINE KETONE NEGATIVE (NEGATIVE); URINE LEUK ESTERASE NEGATIVE (NEGATIVE); URINE NITRITE NEGATIVE (NEGATIVE); URINE PROTEIN NEGATIVE (NEGATIVE); URINE UROBILINOGEN 0.2 mg/dL (0.2-1.0)
[2019-01-24] MEDS: THIAMINE HCL 100 MG TABLET (FP) PO SCH (22:20)
[2019-01-24] MEDS: QUEtiapine FUMARATE 50 MG TABLET PO SCH (22:20)
[2019-01-25] MEDS ORDERED: chlordiazePOXIDE HCL 10 MG CAPSULE PO PRN
[2019-01-25] MEDS: GABAPENTIN 100 MG CAPSULE (FP) PO SCH ×3 (05:39→22:16)
[2019-01-25] MEDS: chlordiazePOXIDE HCL 10 MG CAPSULE PO SCH ×4 (05:39→22:17)
[2019-01-25] MEDS: ESCITALOPRAM OXALATE 10 MG TABLET (FP) PO SCH (10:06)
[2019-01-25] MEDS: cloNIDine HCL 0.1 MG TABLET PO SCH ×2 (10:06→22:16)
[2019-01-25] MEDS: PRENATAL VITAMINS W/ FOLIC ACID TABLET (FP) PO SCH (10:06)
[2019-01-25] MEDS: METHOCARBAMOL 500 MG TABLET PO PRN ×2 (13:17→18:24)
--- NOTE | 2019-01-25 14:17 | PN ---
S CIWA - CIWA Score Nausea/Vomitin-No Nausea/No Vomiting Muscle Tremors: 2 Anxiety: 3 Agitation: 0-Normal Activity Paroxysmal Sweats: 2 Orientation: 0-Oriented Tacttile Disturbances: 0-None Auditory Disturbances: 0-None Visual Disturbances: 2-Mild Sensitivity Headache: 0-None Present CIWA-Ar Total Score: 9 BHS Progress Note (SOAP) Subjective: Sweating, Anxious, Tremors. Patient reports That Current withdrawal Detox Symptoms in General Are Gradually Subsiding in Severity. Objective: PATIENT A & O X 3, OBSERVED AMBULATING ON UNIT UNASSISTED. IN NO ACUTE DISTRESS. 01/25/19 14:17 Vital Signs Temperature 98.1 F 01/25/19 13:41 Pulse Rate 86 01/25/19 13:41 Respiratory Rate 18 01/25/19 13:41 Blood Pressure 116/76 01/25/19 13:41 O2 Sat by Pulse Oximetry (%) Laboratory Tests 01/23/19 01/23/19 01/23/19 07:00 07:00 07:00 WBC 5.2 RBC 4.01 Hgb 13.2 Hct 38.1 MCV 95.2 MCH 32.8 MCHC 34.5 RDW 13.7 Plt Count 217 MPV 8.5 Sodium 144 Potassium 3.8 Chloride 106 Carbon Dioxide 33 H Anion Gap 6 L BUN 15.6 Creatinine 0.7 Est GFR (CKD-EPI)AfAm 125.75 Est GFR (CKD-EPI)NonAf 108.50 Random Glucose 90 Calcium 8.6 Total Bilirubin 0.9 AST 21 ALT 30 Alkaline Phosphatase 96 Total Protein 6.1 L Albumin 3.3 L Urine Color Urine Appearance Urine pH Ur Specific [place] Urine Protein Urine Glucose (UA) Urine Ketones Urine Blood Urine Nitrite Urine Bilirubin Urine Urobilinogen Ur Leukocyte Esterase RPR Titer Nonreactive 01/24/19 13:45 WBC RBC Hgb Hct MCV MCH MCHC RDW Plt Count MPV Sodium Potassium Chloride Carbon Dioxide Anion Gap BUN Creatinine Est GFR (CKD-EPI)AfAm Est GFR (CKD-EPI)NonAf Random Glucose Calcium Total Bilirubin AST ALT Alkaline Phosphatase Total Protein Albumin Urine Color Yellow Urine Appearance Turbid Urine pH 7.5 D Ur Specific [place] 1.018 Urine Protein Negative Urine Glucose (UA) Negative Urine Ketones Negative Urine Blood Negative Urine Nitrite Negative Urine Bilirubin Negative Urine Urobilinogen 0.2 Ur Leukocyte Esterase Negative RPR Titer LABS NOTED. Assessment: 01/25/19 14:18 WITHDRAWAL SYMPTOMS. Plan: CONTINUE DETOX.
[2019-01-25] MEDS: THIAMINE HCL 100 MG TABLET (FP) PO SCH (22:16)
[2019-01-25] MEDS: QUEtiapine FUMARATE 50 MG TABLET PO SCH (22:17)
[2019-01-26] MEDS: chlordiazePOXIDE HCL 10 MG CAPSULE PO SCH ×2 (06:09→17:21)
[2019-01-26] MEDS: GABAPENTIN 100 MG CAPSULE (FP) PO SCH ×3 (06:10→22:22)
[2019-01-26] MEDS: cloNIDine HCL 0.1 MG TABLET PO SCH ×2 (10:07→22:22)
[2019-01-26] MEDS: ESCITALOPRAM OXALATE 10 MG TABLET (FP) PO SCH (10:07)
[2019-01-26] MEDS: PRENATAL VITAMINS W/ FOLIC ACID TABLET (FP) PO SCH (10:07)
--- NOTE | 2019-01-26 14:24 | PN ---
[facility] CIWA - CIWA Score Nausea/Vomitin-No Nausea/No Vomiting Muscle Tremors: None Anxiety: 1-Mildly Anxious Agitation: 0-Normal Activity Paroxysmal Sweats: No Perspiration Orientation: 0-Oriented Tacttile Disturbances: 0-None Auditory Disturbances: 0-None Visual Disturbances: 0-None Headache: 0-None Present CIWA-Ar Total Score: 1 BHS Progress Note (SOAP) Subjective: Patient denies current Withdrawal / Detox symptoms and reports that he feels well overall at this time. Objective: PATIENT A & O X 3. IN NO ACUTE DISTRESS. 01/26/19 14:22 Vital Signs Temperature 97.2 F L 01/26/19 13:49 Pulse Rate 65 01/26/19 13:49 Respiratory Rate 18 01/26/19 13:49 Blood Pressure 144/72 01/26/19 13:49 O2 Sat by Pulse Oximetry (%) Laboratory Tests 01/23/19 01/23/19 01/23/19 07:00 07:00 07:00 WBC 5.2 RBC 4.01 Hgb 13.2 Hct 38.1 MCV 95.2 MCH 32.8 MCHC 34.5 RDW 13.7 Plt Count 217 MPV 8.5 Sodium 144 Potassium 3.8 Chloride 106 Carbon Dioxide 33 H Anion Gap 6 L BUN 15.6 Creatinine 0.7 Est GFR (CKD-EPI)AfAm 125.75 Est GFR (CKD-EPI)NonAf 108.50 Random Glucose 90 Calcium 8.6 Total Bilirubin 0.9 AST 21 ALT 30 Alkaline Phosphatase 96 Total Protein 6.1 L Albumin 3.3 L Urine Color Urine Appearance Urine pH Ur Specific [place] Urine Protein Urine Glucose (UA) Urine Ketones Urine Blood Urine Nitrite Urine Bilirubin Urine Urobilinogen Ur Leukocyte Esterase RPR Titer Nonreactive 01/24/19 13:45 WBC RBC Hgb Hct MCV MCH MCHC RDW Plt Count MPV Sodium Potassium Chloride Carbon Dioxide Anion Gap BUN Creatinine Est GFR (CKD-EPI)AfAm Est GFR (CKD-EPI)NonAf Random Glucose Calcium Total Bilirubin AST ALT Alkaline Phosphatase Total Protein Albumin Urine Color Yellow Urine Appearance Turbid Urine pH 7.5 D Ur Specific [place] 1.018 Urine Protein Negative Urine Glucose (UA) Negative Urine Ketones Negative Urine Blood Negative Urine Nitrite Negative Urine Bilirubin Negative Urine Urobilinogen 0.2 Ur Leukocyte Esterase Negative RPR Titer LABS NOTED. Assessment: 01/26/19 14:23 WITHDRAWAL SYMPTOMS. Plan: CONTINUE DETOX. PATIENT SCHEDULED FOR D/C FROM DETOX UNIT TOMORROW.
[2019-01-26] MEDS: METHOCARBAMOL 500 MG TABLET PO PRN (14:35)
[2019-01-26] MEDS: THIAMINE HCL 100 MG TABLET (FP) PO SCH (22:22)
[2019-01-26] MEDS: QUEtiapine FUMARATE 50 MG TABLET PO SCH (22:22)
[2019-01-27] MEDS ORDERED: chlordiazePOXIDE HCL 10 MG CAPSULE PO ONE (05:00)
[2019-01-27] MEDS: GABAPENTIN 100 MG CAPSULE (FP) PO SCH ×2 (05:30→13:14)
[2019-01-27] MEDS: PRENATAL VITAMINS W/ FOLIC ACID TABLET (FP) PO SCH (10:14)
[2019-01-27] MEDS: ESCITALOPRAM OXALATE 10 MG TABLET (FP) PO SCH (10:14)
[2019-01-27] MEDS: cloNIDine HCL 0.1 MG TABLET PO SCH (10:14)
--- NOTE | 2019-01-27 12:45 | DS ---
[facility] Detox Discharge Summary Admission Date: 01/22/19 Discharge Date: 01/27/19 - History Present History: Alcohol Dependence, Cocaine Dependence, Sedative Dependence Additional Comments: PATIENT GOING TO [facility] ([facility]) FOR AFTERCARE. PATIENT WAS DISCHARGED FROM DETOX UNIT TO BE TAKEN OVER TO REHAB UNIT IN STABLE MEDICAL CONDITION. Pertinent Past History: History Of Syncope (Alcohol-Related), HTN, Depression, Anxiety, Asthma, Depression, History Of Bilateral Hip Replacements. - Physical Exam Results Vital Signs: Vital Signs Temperature 98.1 F 01/27/19 09:06 Pulse Rate 61 01/27/19 09:06 Respiratory Rate 18 01/27/19 09:06 Blood Pressure 107/60 01/27/19 09:06 O2 Sat by Pulse Oximetry (%) Pertinent Admission Physical Exam Findings: WITHDRAWAL SYMPTOMS. Laboratory Tests 01/23/19 01/23/19 01/23/19 07:00 07:00 07:00 WBC 5.2 RBC 4.01 Hgb 13.2 Hct 38.1 MCV 95.2 MCH 32.8 MCHC 34.5 RDW 13.7 Plt Count 217 MPV 8.5 Sodium 144 Potassium 3.8 Chloride 106 Carbon Dioxide 33 H Anion Gap 6 L BUN 15.6 Creatinine 0.7 Est GFR (CKD-EPI)AfAm 125.75 Est GFR (CKD-EPI)NonAf 108.50 Random Glucose 90 Calcium 8.6 Total Bilirubin 0.9 AST 21 ALT 30 Alkaline Phosphatase 96 Total Protein 6.1 L Albumin 3.3 L Urine Color Urine Appearance Urine pH Ur Specific [place] Urine Protein Urine Glucose (UA) Urine Ketones Urine Blood Urine Nitrite Urine Bilirubin Urine Urobilinogen Ur Leukocyte Esterase RPR Titer Nonreactive 01/24/19 13:45 WBC RBC Hgb Hct MCV MCH MCHC RDW Plt Count MPV Sodium Potassium Chloride Carbon Dioxide Anion Gap BUN Creatinine Est GFR (CKD-EPI)AfAm Est GFR (CKD-EPI)NonAf Random Glucose Calcium Total Bilirubin AST ALT Alkaline Phosphatase Total Protein Albumin Urine Color Yellow Urine Appearance Turbid Urine pH 7.5 D Ur Specific [place] 1.018 Urine Protein Negative Urine Glucose (UA) Negative Urine Ketones Negative Urine Blood Negative Urine Nitrite Negative Urine Bilirubin Negative Urine Urobilinogen 0.2 Ur Leukocyte Esterase Negative RPR Titer LABS NOTED. - Treatment Hospital Course: Detox Protocol Followed, Detoxed Safely, Responded well, Discharged Condition Good, Rehab Referral Accepted Patient has Accepted a Rehab Referral to: [facility] ([place], [place]). - Medication Discharge Medications: Ambulatory Orders Albuterol Sulfate Inhaler - [Ventolin Hfa Inhaler -] 1 - 2 inh PO Q4H PRN Escitalopram Oxalate [Lexapro -] 10 mg PO DAILY 01/22/19 - Diagnosis (1) Alcohol dependence with uncomplicated withdrawal Current Visit: Yes Status: Acute (2) Anxiety and depression Current Visit: Yes Status: Acute (3) History of bilateral hip replacements Current Visit: Yes Status: Acute (4) Sedative, hypnotic or anxiolytic dependence with withdrawal, uncomplicated Current Visit: Yes Status: Acute (5) Syncope Current Visit: Yes Status: Acute Qualifiers: Syncope type: unspecified Qualified Code(s): R55 - Syncope and collapse (6) Cocaine dependence Current Visit: Yes Status: Chronic Qualifiers: Substance use status: uncomplicated Qualified Code(s): F14.20 - Cocaine dependence, uncomplicated (7) History of depression Current Visit: Yes Status: Chronic (8) Hypertension Current Visit: No Status: Chronic Qualifiers: Hypertension type: other secondary hypertension Qualified Code(s): I15.8 - Other secondary hypertension (9) Substance induced mood disorder Current Visit: Yes Status: Chronic - AMA Did Patient Leave Against Medical Advice: No S CIWA - CIWA Score Nausea/Vomitin-No Nausea/No Vomiting Muscle Tremors: None Anxiety: 1-Mildly Anxious Agitation: 1-Slight > Activity Paroxysmal Sweats: No Perspiration Orientation: 0-Oriented Tacttile Disturbances: 0-None Auditory Disturbances: 0-None Visual Disturbances: 0-None Headache: 0-None Present CIWA-Ar Total Score: 2
[2019-01-27] MEDS: METHOCARBAMOL 500 MG TABLET PO PRN (13:14)
[2019-01-27 13:35] VITALS: BP 107/74; PULSE 86; TEMP 95.3
== END 2019-01-27 14:55 | disposition other institution (70) | DRG 774 ==
LOC: YASAS 12:41 → Y3N 19:29
PROVIDERS: ADMIT Surgery; ATTEND Surgery
PROC: HZ2ZZZZ Detoxification Services for Substance Abuse Treatment (ICD-10-PCS; principal; 2019-01-22)
DX: F10.230 Alcohol dependence with withdrawal, uncomplicated (principal); F13.230 Sedative, hypnotic or anxiolytic dependence with withdrawal, uncomplicated; F14.20 Cocaine dependence, uncomplicated; F19.24 Other psychoactive substance dependence with psychoactive substance-induced mood disorder; F41.9 Anxiety disorder, unspecified; F32.9 Major depressive disorder, single episode, unspecified; I10 Essential (primary) hypertension; Z87.891 Personal history of nicotine dependence; Z96.653 Presence of artificial knee joint, bilateral; Z88.5 Allergy status to narcotic agent
CPT/HCPCS: 36415; 80053; 81003; 85027; 86593; J0735

== ENCOUNTER 2019-01-27 14:56 | Inpatient (IN) | payer OTHER ==
--- NOTE | 2019-01-27 12:55 | HP ---
[facility] Rehab Assess/Revision - Admission History Admitted to Rehab from: [facility] Date of Admission to Rehab: 01/27/2019 - Vital signs Vital Signs: NOTED; STABLE. - Findings Detox History & Physical reviewed: Yes Concur with findings: Yes Comments/Additional Findings: PATIENT'S MEDICAL / MEDICATION HISTORY REVIEWED PRIOR TO DISCHARGE FROM DETOX UNIT. PATIENT WAS DISCHARGED FROM DETOX UNIT TO BE TAKEN OVER TO REHAB UNIT IN STABLE MEDICAL CONDITION. Inpatient Rehab Admission - Rehab Decision to Admit Inpatient rehab admission?: Yes - Initial Determination Are CD services needed?: Yes Free of communicable disease: Yes Not in need of hospitalization: Yes - Rehab Admission Criteria Previous failed treatment: Yes Poor recovery environment: Yes Comorbidities: Yes Lacks judgement: No Patient is meeting Inpatient Rehab admission criteria:: Yes
[~2019-01-27 14:56] MED LIST: ALBUTEROL SO4 8 GM HFA INHALER IH PRN; IBUPROFEN 400 MG TABLET (FP) PO PRN; LOPERAMIDE HCL 2 MG CAPSULE PO PRN; MAG HYDROX/AL HYDROX/SIMETH 30 ML UNIT-DOSE CUP PO PRN; MAGNESIUM CITRATE 300 ML BOTTLE PO PRN; MAGNESIUM HYDROX 2400MG/30ML ORAL SUSPENSION 30 ML CUP PO PRN; MENTHOL/PHENOL 1 EACH UD MM PRN; P-EPHED 60MG/TRIPROLIDI 2.5MG TABLET PO PRN; guaiFENesin 200 MG/10 ML 10 ML UNIT-DOSE CUPS PO PRN
--- NOTE | 2019-01-27 19:43 | PN ---
[facility] Progress Note Note: Psychiatry Attending's note : Patient transferred to [address] Lexapro 10mg po daily. Ordered. Continuity of care.
[2019-01-27] MEDS: cloNIDine HCL 0.1 MG TABLET PO SCH (21:07)
[2019-01-27] MEDS: THIAMINE HCL 100 MG TABLET (FP) PO SCH (21:07)
[2019-01-27] MEDS: MELATONIN 5 MG TABLETS PO PRN (21:08)
[2019-01-27] MEDS: MINERAL OIL/PETROLAT/WATER TOPICAL CREAM 113 GM JAR TP SCH (21:13)
[2019-01-27] MEDS ORDERED: QUEtiapine FUMARATE 50 MG TABLET PO PRN (21:56)
[2019-01-27] MEDS ORDERED: QUEtiapine FUMARATE 50 MG TABLET PO ONE (22:00)
--- NOTE | 2019-01-27 22:00 | PN ---
S Progress Note Note: Patient was on Seroquel in detox. Will order Seroquel tonight. Will order EKG in am to ensure that QT is not prolonged since patient is already receiving Lexapro.
[2019-01-28] MEDS: cloNIDine HCL 0.1 MG TABLET PO SCH ×2 (10:03→21:22)
[2019-01-28] MEDS: PRENATAL VITAMINS W/ FOLIC ACID TABLET (FP) PO SCH (10:03)
[2019-01-28] MEDS: ESCITALOPRAM OXALATE 10 MG TABLET (FP) PO SCH (10:03)
[2019-01-28] MEDS: MINERAL OIL/PETROLAT/WATER TOPICAL CREAM 113 GM JAR TP SCH ×2 (10:04→21:23)
[2019-01-28] MEDS: METHOCARBAMOL 500 MG TABLET PO SCH ×2 (12:41→21:22)
[2019-01-28] MEDS: QUEtiapine FUMARATE 50 MG TABLET PO SCH (21:22)
[2019-01-28] MEDS: MELATONIN 5 MG TABLETS PO PRN (21:58)
[2019-01-28] MEDS: THIAMINE HCL 100 MG TABLET (FP) PO SCH (21:59)
[2019-01-29] MEDS: cloNIDine HCL 0.1 MG TABLET PO SCH ×2 (09:30→21:37)
[2019-01-29] MEDS: PRENATAL VITAMINS W/ FOLIC ACID TABLET (FP) PO SCH (09:30)
[2019-01-29] MEDS: MINERAL OIL/PETROLAT/WATER TOPICAL CREAM 113 GM JAR TP SCH ×2 (09:30→21:38)
[2019-01-29] MEDS: METHOCARBAMOL 500 MG TABLET PO SCH ×2 (09:30→21:36)
[2019-01-29] MEDS: ESCITALOPRAM OXALATE 10 MG TABLET (FP) PO SCH (09:30)
--- NOTE | 2019-01-29 11:36 | EKG ---
Test Reason : Blood Pressure : / mmHG Vent. Rate : 060 BPM Atrial Rate : 060 BPM P-R Int : 172 ms QRS Dur : 102 ms QT Int : 386 ms P-R-T Axes : 025 -16 026 degrees QTc Int : 386 ms NORMAL SINUS RHYTHM SEPTAL INFARCT , AGE UNDETERMINED ABNORMAL ECG WHEN COMPARED WITH ECG OF 31-AUG-2016 05:58, SEPTAL INFARCT IS NOW PRESENT QT HAS SHORTENED Confirmed by BRANDON PRESCOTT, ANDREI ([id number]) on 01/29/2019 11:35:34 AM Referred By: MARIELA PRIETO Confirmed By:ANDREI TAYLOR MD
[2019-01-29] MEDS: MELATONIN 5 MG TABLETS PO PRN (21:36)
[2019-01-29] MEDS: QUEtiapine FUMARATE 50 MG TABLET PO SCH (21:38)
[2019-01-29] MEDS: THIAMINE HCL 100 MG TABLET (FP) PO SCH (21:38)
[2019-01-30] MEDS: cloNIDine HCL 0.1 MG TABLET PO SCH ×2 (10:20→21:40)
[2019-01-30] MEDS: ESCITALOPRAM OXALATE 10 MG TABLET (FP) PO SCH (10:20)
[2019-01-30] MEDS: METHOCARBAMOL 500 MG TABLET PO SCH ×2 (10:20→22:41)
[2019-01-30] MEDS: MINERAL OIL/PETROLAT/WATER TOPICAL CREAM 113 GM JAR TP SCH ×2 (10:20→22:08)
[2019-01-30] MEDS: PRENATAL VITAMINS W/ FOLIC ACID TABLET (FP) PO SCH (10:20)
[2019-01-30] MEDS ORDERED: PT OWN MED DRAWER 7, Y5N ONE (21:40)
[2019-01-30] MEDS: THIAMINE HCL 100 MG TABLET (FP) PO SCH (21:40)
[2019-01-30] MEDS: QUEtiapine FUMARATE 50 MG TABLET PO SCH (21:40)
[2019-01-31] MEDS: MINERAL OIL/PETROLAT/WATER TOPICAL CREAM 113 GM JAR TP SCH ×2 (10:07→21:06)
[2019-01-31] MEDS: cloNIDine HCL 0.1 MG TABLET PO SCH ×2 (10:07→21:05)
[2019-01-31] MEDS: PRENATAL VITAMINS W/ FOLIC ACID TABLET (FP) PO SCH (10:07)
[2019-01-31] MEDS: ESCITALOPRAM OXALATE 10 MG TABLET (FP) PO SCH (10:07)
[2019-01-31] MEDS: METHOCARBAMOL 500 MG TABLET PO SCH ×2 (10:08→21:05)
[2019-01-31] MEDS: ACETAMINOPHEN 325 MG TABLET (FP) PO PRN (18:03)
[2019-01-31] MEDS: QUEtiapine FUMARATE 50 MG TABLET PO SCH (21:05)
[2019-01-31] MEDS: THIAMINE HCL 100 MG TABLET (FP) PO SCH (21:06)
[2019-02-01] MEDS: MINERAL OIL/PETROLAT/WATER TOPICAL CREAM 113 GM JAR TP SCH ×2 (09:54→21:11)
[2019-02-01] MEDS: cloNIDine HCL 0.1 MG TABLET PO SCH ×2 (09:55→21:10)
[2019-02-01] MEDS: METHOCARBAMOL 500 MG TABLET PO SCH ×2 (09:55→21:10)
[2019-02-01] MEDS: PRENATAL VITAMINS W/ FOLIC ACID TABLET (FP) PO SCH (09:55)
[2019-02-01] MEDS: ESCITALOPRAM OXALATE 10 MG TABLET (FP) PO SCH (09:55)
--- NOTE | 2019-02-01 12:45 | PN ---
[facility] Progress Note Note: Vital Signs Temperature 97.4 F L 02/01/19 06:39 Pulse Rate 89 02/01/19 09:30 Respiratory Rate 18 02/01/19 09:30 Blood Pressure 147/75 02/01/19 09:30 O2 Sat by Pulse Oximetry (%) CC: " I want Antabuse or PO Naltrexone to help with drinking problem" Patient is a 53 yo male with hx of alcohol dependence w/ hx of first alcohol drink 18 yo, four year sobriety from 2006 - 2011, reports from 2012 until now has had intermittent period of sobriety but keeps relapsing after 30 - 90 days. Reports prior to admission was sober from 90 days, relapsed and relapsed went on drinking binge drinking 2 pints - 1 litter. eports attempted MAT tx with vivitrol at [facility] one year ago in which received the naltrexone challenge and one dose of vivitrol, reports poor follow up and relapsed. Reports during his rehab stay continues to crave alcohol , but feels motivated to maintain his sobriety and continue his treatment at [facility] in [place], and an sponsor. Patient is Aox3 no acute distress lungs clear no neuro deficits or tremors full ROM no gait abnormality skin intact no edema or erythema Labs reviewed LFTs WNL Plan: Benefits and risk discussed with patient Will start naltrexone 50 mg PO QD increase PO fluids continue to monitor Follow at [facility] for after [facility]
[2019-02-01] MEDS: THIAMINE HCL 100 MG TABLET (FP) PO SCH (21:10)
[2019-02-01] MEDS: QUEtiapine FUMARATE 50 MG TABLET PO SCH (21:10)
[2019-02-01] MEDS: MELATONIN 5 MG TABLETS PO PRN (21:55)
[2019-02-02] MEDS: cloNIDine HCL 0.1 MG TABLET PO SCH ×2 (09:51→21:45)
[2019-02-02] MEDS: METHOCARBAMOL 500 MG TABLET PO SCH ×2 (09:52→21:46)
[2019-02-02] MEDS: NALTREXONE HCL 50 MG TABLET PO SCH (09:52)
[2019-02-02] MEDS: MINERAL OIL/PETROLAT/WATER TOPICAL CREAM 113 GM JAR TP SCH ×2 (09:52→21:47)
[2019-02-02] MEDS: ESCITALOPRAM OXALATE 10 MG TABLET (FP) PO SCH (09:52)
[2019-02-02] MEDS: PRENATAL VITAMINS W/ FOLIC ACID TABLET (FP) PO SCH (09:52)
[2019-02-02] MEDS: QUEtiapine FUMARATE 50 MG TABLET PO SCH (21:45)
[2019-02-02] MEDS: THIAMINE HCL 100 MG TABLET (FP) PO SCH (21:45)
[2019-02-02] MEDS: MELATONIN 5 MG TABLETS PO PRN (21:46)
[2019-02-03] MEDS: MINERAL OIL/PETROLAT/WATER TOPICAL CREAM 113 GM JAR TP SCH ×2 (10:16→21:11)
[2019-02-03] MEDS: PRENATAL VITAMINS W/ FOLIC ACID TABLET (FP) PO SCH (10:16)
[2019-02-03] MEDS: cloNIDine HCL 0.1 MG TABLET PO SCH ×2 (10:16→21:10)
[2019-02-03] MEDS: ESCITALOPRAM OXALATE 10 MG TABLET (FP) PO SCH (10:16)
[2019-02-03] MEDS: METHOCARBAMOL 500 MG TABLET PO SCH ×2 (10:16→21:10)
[2019-02-03] MEDS: NALTREXONE HCL 50 MG TABLET PO SCH (10:17)
[2019-02-03] MEDS: QUEtiapine FUMARATE 50 MG TABLET PO SCH (21:10)
[2019-02-03] MEDS: THIAMINE HCL 100 MG TABLET (FP) PO SCH (21:10)
[2019-02-03] MEDS: MELATONIN 5 MG TABLETS PO PRN (21:10)
[2019-02-04] MEDS: NALTREXONE HCL 50 MG TABLET PO SCH (10:37)
[2019-02-04] MEDS: cloNIDine HCL 0.1 MG TABLET PO SCH ×2 (10:37→21:40)
[2019-02-04] MEDS: ESCITALOPRAM OXALATE 10 MG TABLET (FP) PO SCH (10:37)
[2019-02-04] MEDS: METHOCARBAMOL 500 MG TABLET PO SCH ×2 (10:37→21:40)
[2019-02-04] MEDS: MINERAL OIL/PETROLAT/WATER TOPICAL CREAM 113 GM JAR TP SCH ×2 (10:37→22:04)
[2019-02-04] MEDS: PRENATAL VITAMINS W/ FOLIC ACID TABLET (FP) PO SCH (10:37)
[2019-02-04] MEDS: QUEtiapine FUMARATE 50 MG TABLET PO SCH (21:40)
[2019-02-04] MEDS: THIAMINE HCL 100 MG TABLET (FP) PO SCH (21:40)
[2019-02-04] MEDS: MELATONIN 5 MG TABLETS PO PRN (21:40)
[2019-02-05] MEDS: ESCITALOPRAM OXALATE 10 MG TABLET (FP) PO SCH (09:39)
[2019-02-05] MEDS: MINERAL OIL/PETROLAT/WATER TOPICAL CREAM 113 GM JAR TP SCH ×2 (09:39→22:50)
[2019-02-05] MEDS: cloNIDine HCL 0.1 MG TABLET PO SCH ×2 (09:39→21:16)
[2019-02-05] MEDS: PRENATAL VITAMINS W/ FOLIC ACID TABLET (FP) PO SCH (09:39)
[2019-02-05] MEDS: NALTREXONE HCL 50 MG TABLET PO SCH (09:40)
[2019-02-05] MEDS: METHOCARBAMOL 500 MG TABLET PO SCH ×2 (09:40→21:16)
[2019-02-05] MEDS: THIAMINE HCL 100 MG TABLET (FP) PO SCH (21:16)
[2019-02-05] MEDS: QUEtiapine FUMARATE 50 MG TABLET PO SCH (21:16)
[2019-02-05] MEDS: MELATONIN 5 MG TABLETS PO PRN (21:16)
[2019-02-06] MEDS: cloNIDine HCL 0.1 MG TABLET PO SCH ×2 (10:32→21:45)
[2019-02-06] MEDS: PRENATAL VITAMINS W/ FOLIC ACID TABLET (FP) PO SCH (10:32)
[2019-02-06] MEDS: METHOCARBAMOL 500 MG TABLET PO SCH ×2 (10:32→21:45)
[2019-02-06] MEDS: ESCITALOPRAM OXALATE 10 MG TABLET (FP) PO SCH (10:32)
[2019-02-06] MEDS ORDERED: PT OWN MED DRAWER 7, Y5N ONE (10:34)
[2019-02-06] MEDS: NALTREXONE HCL 50 MG TABLET PO SCH (10:34)
[2019-02-06] MEDS: MINERAL OIL/PETROLAT/WATER TOPICAL CREAM 113 GM JAR TP SCH ×2 (13:38→22:23)
[2019-02-06] MEDS: MELATONIN 5 MG TABLETS PO PRN (21:44)
[2019-02-06] MEDS: QUEtiapine FUMARATE 50 MG TABLET PO SCH (21:45)
[2019-02-06] MEDS: THIAMINE HCL 100 MG TABLET (FP) PO SCH (22:23)
[2019-02-07] MEDS: METHOCARBAMOL 500 MG TABLET PO SCH ×2 (09:56→21:14)
[2019-02-07] MEDS: cloNIDine HCL 0.1 MG TABLET PO SCH ×2 (09:56→21:13)
[2019-02-07] MEDS: MINERAL OIL/PETROLAT/WATER TOPICAL CREAM 113 GM JAR TP SCH ×2 (09:56→21:14)
[2019-02-07] MEDS: ESCITALOPRAM OXALATE 10 MG TABLET (FP) PO SCH (09:56)
[2019-02-07] MEDS: PRENATAL VITAMINS W/ FOLIC ACID TABLET (FP) PO SCH (09:56)
[2019-02-07] MEDS: NALTREXONE HCL 50 MG TABLET PO SCH (09:57)
[2019-02-07] MEDS: ACETAMINOPHEN 325 MG TABLET (FP) PO PRN (15:09)
[2019-02-07] MEDS: QUEtiapine FUMARATE 50 MG TABLET PO SCH (21:13)
[2019-02-07] MEDS: THIAMINE HCL 100 MG TABLET (FP) PO SCH (21:15)
[2019-02-08] MEDS: ESCITALOPRAM OXALATE 10 MG TABLET (FP) PO SCH (09:52)
[2019-02-08] MEDS: NALTREXONE HCL 50 MG TABLET PO SCH (09:52)
[2019-02-08] MEDS: PRENATAL VITAMINS W/ FOLIC ACID TABLET (FP) PO SCH (09:52)
[2019-02-08] MEDS: MINERAL OIL/PETROLAT/WATER TOPICAL CREAM 113 GM JAR TP SCH ×2 (09:52→22:36)
[2019-02-08] MEDS: cloNIDine HCL 0.1 MG TABLET PO SCH ×2 (09:52→21:39)
[2019-02-08] MEDS: METHOCARBAMOL 500 MG TABLET PO SCH ×2 (09:52→21:39)
[2019-02-08] MEDS: QUEtiapine FUMARATE 50 MG TABLET PO SCH (21:39)
[2019-02-08] MEDS: MELATONIN 5 MG TABLETS PO PRN (21:39)
[2019-02-08] MEDS: THIAMINE HCL 100 MG TABLET (FP) PO SCH (21:39)
[2019-02-09] MEDS: PRENATAL VITAMINS W/ FOLIC ACID TABLET (FP) PO SCH (10:10)
[2019-02-09] MEDS: ESCITALOPRAM OXALATE 10 MG TABLET (FP) PO SCH (10:10)
[2019-02-09] MEDS: cloNIDine HCL 0.1 MG TABLET PO SCH ×2 (10:10→21:15)
[2019-02-09] MEDS: METHOCARBAMOL 500 MG TABLET PO SCH ×2 (10:10→21:15)
[2019-02-09] MEDS: MINERAL OIL/PETROLAT/WATER TOPICAL CREAM 113 GM JAR TP SCH ×2 (10:10→22:04)
--- NOTE | 2019-02-09 17:40 | PN ---
S Progress Note Note: Patient is scheduled for discharge tomorrow. Script for 30 days supply of Lexapro 10 mg/day will be electronically transmitted to [facility] pharmacy at [facility] [place] [address]
[2019-02-09] MEDS: QUEtiapine FUMARATE 50 MG TABLET PO SCH (21:15)
[2019-02-09] MEDS: MELATONIN 5 MG TABLETS PO PRN (21:15)
[2019-02-09] MEDS: THIAMINE HCL 100 MG TABLET (FP) PO SCH (21:16)
[2019-02-10 07:06] VITALS: BP 137/76; PULSE 56; TEMP 97.7
[2019-02-10] MEDS: ESCITALOPRAM OXALATE 10 MG TABLET (FP) PO SCH (09:29)
[2019-02-10] MEDS: METHOCARBAMOL 500 MG TABLET PO SCH (09:29)
[2019-02-10] MEDS: PRENATAL VITAMINS W/ FOLIC ACID TABLET (FP) PO SCH (09:29)
[2019-02-10] MEDS: cloNIDine HCL 0.1 MG TABLET PO SCH (09:29)
[2019-02-10] MEDS: MINERAL OIL/PETROLAT/WATER TOPICAL CREAM 113 GM JAR TP SCH (09:29)
--- NOTE | 2019-02-10 10:22 | DS ---
[facility] Rehab Discharge Summary - [facility] Rehab Discharge Summary Admission Date: 01/27/19 Discharge Date: 02/10/19 - History Present History: Alcohol dependence, Cocaine dependence Pertinent Past History: PATIENT RECENTLY CHARGED WITH DWI. - Discharge Physical Exam Vital Signs: Vital Signs Temperature 97.7 F 02/10/19 07:04 Pulse Rate 56 L 02/10/19 07:04 Respiratory Rate 18 02/10/19 07:04 Blood Pressure 137/76 02/10/19 07:04 O2 Sat by Pulse Oximetry (%) Pertinent Admission Physical Exam Findings: PE ALERT AND ORIENTED X 3 SKIN WARM AND DRY +PERRLA, EOMS INTACT BL NECK SUPPLE, NO JVD CAR S1S2 RESP CTA BL EXT FULL ROM, NO TREMORS - Treatment Discharge Condition: Discharge condition good - Medication Discharge Medications: Ambulatory Orders Albuterol Sulfate Inhaler - [Ventolin Hfa Inhaler -] 1 - 2 inh PO Q4H PRN Albuterol Sulfate Inhaler - [Ventolin HFA Inhaler -] 2 puff IH Q4H PRN #1 inhaler 02/09/19 Escitalopram Oxalate [Lexapro -] 10 mg PO DAILY #30 tablet 02/09/19 Naltrexone HCl [Revia -] 50 mg PO DAILY 15 Days #15 tablet 02/09/19 - Medication-Assisted Treatment (MAT) Medication-Assisted Treatment (MAT): Yes Medication Prescribed: Naltrexone (oral) MAT Follow-up Referral: [facility]POINT[facility] 02/15/19 10AM. - Discharge Instructions Diet, activity, other medical instructions: Diet: Activity: Other medical instructions: - Diagnosis (1) Alcohol dependence Status: Chronic Qualifiers: Substance use status: uncomplicated Qualified Code(s): F10.20 - Alcohol dependence, uncomplicated (2) Sedative, hypnotic or anxiolytic dependence with withdrawal, uncomplicated Status: Chronic (3) Cocaine dependence Status: Chronic Qualifiers: Substance use status: uncomplicated (4) Hypertension Status: Chronic Qualifiers: Hypertension type: essential hypertension Qualified Code(s): I10 - Essential (primary) hypertension - Follow-up Referral Minutes to complete discharge: 30 - AMA Did Patient Leave Against Medical Advice: No
== END 2019-02-10 09:35 | disposition home or self-care (01) | DRG 772 ==
LOC: YASAS 14:56 → Y3W 14:57
PROVIDERS: ADMIT Neuromusculoskeletal Medicine & OMM; ATTEND Neuromusculoskeletal Medicine & OMM
PROC: HZ42ZZZ Group Counseling for Substance Abuse Treatment, Cognitive-Behavioral (ICD-10-PCS; principal; 2019-01-27)
DX: F10.20 Alcohol dependence, uncomplicated (principal); F13.20 Sedative, hypnotic or anxiolytic dependence, uncomplicated; F14.20 Cocaine dependence, uncomplicated; I10 Essential (primary) hypertension
CPT/HCPCS: 93005; 93010; J0735

== ENCOUNTER 2019-04-21 12:45 | Inpatient (IN) | payer OTHER ==
[2019-04-21 13:57] VITALS: BMI 29.8
--- NOTE | 2019-04-21 16:38 | HP ---
CIWA Score Nausea/Vomitin-No Nausea/No Vomiting Muscle Tremors: 4-Moderate,w/Arms Extend Anxiety: 3 Agitation: 0-Normal Activity Paroxysmal Sweats: 3 (Increased facial moisture) Orientation: 0-Oriented Tacttile Disturbances: 0-None Auditory Disturbances: 0-None Visual Disturbances: 0-None Headache: 0-None Present CIWA-Ar Total Score: 10 - Admission Criteria OASAS Guidelines: Admission for Medically Managed Detox: Requires at least one of the followin. CIWA greater than 12 2. Seizures within the past 24 hours 3. Delirium tremens within the past 24 hours 4. Hallucinations within the past 24 hours 5. Acute intervention needed for co occurring medical disorder 6. Acute intervention needed for co occurring psychiatric disorder 7. Severe withdrawal that cannot be handled at a lower level of care (continued vomiting, continued diarrhea, abnormal vital signs) requiring intravenous medication and/or fluids 8. Patient presents the following: Acute intervention needed for co-occurring med or psych disorder (Hx Depression - on meds; B/P elevation;) Admission Criteria Met: Admission criteria met Admitting History and Physical - Smoking History Smoking history: Former smoker Have you smoked in the past 12 months: No - Alcohol/Substance Use Hx Alcohol Use: Yes Admission ROS BHS - HPI Chief Complaint: I need alcohol detox. States I need to stop drinking before it gets worse." Allergies/Adverse Reactions: Allergies Allergy/AdvReac Type Severity Reaction Status Date / Time codeine Allergy Intermediate Elevated Verified 04/21/19 13:48 Blood Pressure History of Present Illness: 54 yo presents w/alcohol withdrawal symptoms seeking detox. Last [facility] admission 01/22/91 to 02/10/19. Denies overdoses or seizures. + hx blackouts. Denies DT's. Was in outpatient program. States has not been taking naltrexone for 2 weeks. Want to restart Naltrexone once completes detox (in rehab) Alcohol use began at age 14. States relapsed 1 week ago and has been drinking every day and currently drinking 1 liter vodka/day. Last drink was about midnight. Cocaine use began at age 20. Currently use 1-2x/month. On prescribed alprazolam. Patient informed that alprazolam would not be given during this hospitalization and verbalizes an understanding. Denies opiate use. PMHx: HTN; Asthma (Bronchitis);LBP. Gabino Hip pain (hx: THP) Denies falls when not intoxicated. [facility] EK01/28/19 MHHx: Anxiety. Insomnia. Depression. Denies thoughts of harming self or others. SHx: Domiciled. Unemployed. Current legal issues - will discuss w/ counselor. Patient Name: Dereje Abad Date: 1965 Address: [facility] [place] [address] Sex: Male Rx Written Rx Dispensed Drug Quantity Days Supply Prescriber Name 04/11/2019 04/11/2019 alprazolam 0.5 mg tablet 60 30 Henok Sheets MD 02/28/2019 02/28/2019 alprazolam 0.5 mg tablet 60 30 Henok Sheets MD 01/03/2019 01/03/2019 alprazolam 0.5 mg tablet 14 14 Henok Sheets MD 12/10/2018 12/10/2018 alprazolam 0.5 mg tablet 5 3 Austin Garcia Jr, MD Patient Name: Dereje Abad Date: 1965 Address: [address] [place] [id number] Sex: Male Rx Written Rx Dispensed Drug Quantity Days Supply Prescriber Name 11/15/2018 11/16/2018 tramadol hcl 50 mg tablet 56 14 Cedric Zhang 10/28/2018 10/29/2018 acetaminophen-cod #3 tablet 112 14 Rubio Porras MD 10/28/2018 10/29/2018 acetaminophen-cod #3 tablet 24 3 Dominique Osman QUILT SEWER Exam Limitations: No Limitations - Ebola screening Have you traveled outside of the country in the last 21 days: No (N) Have you had contact with anyone from an Ebola affected area: No Have you been sick,other than usual withdrawal symptoms: No Do you have a fever: No - Review of Systems Constitutional: Changes in sleep (Difficulty falling and staying asleep) EENT: reports: No Symptoms Reported Respiratory: reports: No Symptoms reported Cardiac: reports: No Symptoms Reported GI: reports: Blood Streaked Bowels, Diarrhea (2 BM's today - states usually constipated) : reports: No Symptoms Reported Musculoskeletal: reports: Back Pain (Chronic intermittent stiff back pain. "0" now. Increases w/ walking. Improves w/ exercise.), Other (Intermittent plantar fascitis.) Integumentary: reports: No Symptoms Reported Neuro: reports: Tremors Endocrine: reports: Increased Thirst Hematology: reports: No Symptoms Reported Psychiatric: reports: Mood/Affect Appropiate, Orientated x3, Anxious, Depressed (Denies thoughts of harming self or others.) Patient History - Patient Medical History Hx Anemia: No Hx Asthma: Yes Hx Chronic Obstructive Pulmonary Disease (COPD): No Hx Cancer: No Hx Cardiac Disorders: No Hx Congestive Heart Failure: No Hx Hypertension: Yes Hx Hypercholesterolemia: No Hx Pacemaker: No HX Cerebrovascular Accident: No Hx Seizures: No Hx Dementia: No Hx Diabetes: No Hx Gastrointestinal Disorders: No Hx Liver Disease: No Hx Genitourinary Disorders: No Hx Sexually Transmitted Disorders: No Hx Renal Disease (ESRD): No Hx Thyroid Disease: No Hx Human Immunodeficiency Virus (HIV): No (last 11/30) Hx Hepatitis C: No Hx Depression: Yes Hx Suicide Attempt: No Hx Bipolar Disorder: No Hx Schizophrenia: No - Patient Surgical History Past Surgical History: Yes Hx Neurologic Surgery: No Hx Cataract Extraction: No Hx Cardiac Surgery: No Hx Lung Surgery: No Hx Breast Surgery: No Hx Breast Biopsy: No Hx Abdominal Surgery: No Hx Appendectomy: No Hx Cholecystectomy: No Hx Genitourinary Surgery: No Hx Orthopedic Surgery: Yes (B/L HIP REPLACEMENTS-) Anesthesia Reaction: No - PPD History Previous Implant?: Yes Documented Results: Negative w/proof Implanted On Prior [facility] Admission?: Yes Date: 09/12/18 Results: 0 mm PPD to be Administered?: No - Smoking Cessation Smoking history: Former smoker (Stopped in 2009) Have you smoked in the past 12 months: No Hx Chewing Tobacco Use: No Initiated information on smoking cessation: No - Substance & Tx. History Hx Alcohol Use: Yes Hx Substance Use: Yes Substance Use Type: Alcohol, Cocaine Hx Substance Use Treatment: Yes (detox, rehab, outpatient) - Substances abused Alcohol Substance route: Oral Frequency: Daily Amount used: 1-2 liters of Vodka/day. Age of first use: 14 Date of last use: 04/20/19 Admission Physical Exam BHS - Vital Signs Vital Signs: Vital Signs - 24 hr 04/21/19 13:46 Temperature 97.3 F L Pulse Rate 74 Respiratory 18 Rate Blood Pressure 171/87 H - Physical General Appearance: Yes: Nourished, Mild Distress, Tremorous (Tremors w/ arms elevated), Sweating (Increased facial moisture), Anxious HEENTM: Yes: EOMI (Jerking movement of eyes on lateral gaze), Hearing grossly Normal, Normocephalic, Normal Voice, RAÚL, Pharynx Normal (Dry, thickened saliva.), Other (Perforated nasal septum) Respiratory: Yes: Lungs Clear (PUlse ox = 98 %), Normal Breath Sounds, No Respiratory Distress Neck: Yes: No masses,lesions,Nodules, Supple Breast: Yes: Breast Exam Deferred Cardiology: Yes: Regular Rhythm, Regular Rate, S1, S2 Abdominal: Yes: Non Tender, Soft, Increased Bowel Sounds, Protuberent ( Increased abd adiposity) Genitourinary: Yes: Within Normal Limits Back: Yes: Normal Inspection Musculoskeletal: Yes: full range of Motion, Gait Steady Extremities: Yes: Normal Capillary Refill, Tremors, Pedal Edema ((L) foot greater than (R). Pedal pulses (+)) Neurological: Yes: brewery representative II-XII NML intact (Jerking movement of eyes on lateral gaze), Fully Oriented, Alert, Motor Strength 5/5, Normal Response Integumentary: Yes: Normal Color, Warm, Diaphoresis (Increased facial moisture) , Other (Decreased skin turgor) Lymphatic: Yes: Within Normal Limits - Diagnostic (1) Unspecified nystagmus Current Visit: Yes Status: Acute (2) Perforated nasal septum Current Visit: Yes Status: Chronic (3) History of bronchitis Current Visit: Yes Status: Chronic (4) Alcohol dependence with uncomplicated withdrawal Current Visit: Yes Status: Acute (5) Cocaine dependence Current Visit: Yes Status: Chronic Qualifiers: Substance use status: uncomplicated Qualified Code(s): F14.20 - Cocaine dependence, uncomplicated (6) History of hip replacement Current Visit: Yes Status: Chronic Qualifiers: Laterality: bilateral Qualified Code(s): Z96.643 - Presence of artificial hip joint, bilateral (7) Hypertension Current Visit: Yes Status: Chronic Qualifiers: Hypertension type: essential hypertension Qualified Code(s): I10 - Essential (primary) hypertension Comment: states only goes high when he drinks (8) Dehydration Current Visit: Yes Status: Acute Cleared for Admission BHS - Detox or Rehab S Level of Care: Medically Managed Detox Regimen/Protocol: Librium Claeared for Rehab Admission: No Breathalyzer - Breathalyzer Breathalyzer: 0 Urine Drug Screen - Test Device Lot number: [id number] Expiration date: 12/11/20 - Control Is test valid?: Yes - Results Drug screen NEGATIVE: No Urine drug screen results: RONNY-Cocaine, MOP-Opiates, BZO-Benzodiazepines Inpatient Rehab Admission - Rehab Decision to Admit Inpatient rehab admission?: No
[2019-04-21] MEDS ORDERED: MAGNESIUM CITRATE 300 ML BOTTLE PO PRN (17:20)
[2019-04-21] MEDS ORDERED: BISMUTH SUBSALICYLATE 524 MG/30 ML UD PO PRN (17:20)
[2019-04-21] MEDS ORDERED: MAGNESIUM HYDROX 2400MG/30ML ORAL SUSPENSION 30 ML CUP PO PRN (17:20)
[2019-04-21] MEDS ORDERED: ONDANSETRON *ODT* 4 MG TABLET SL PRN (17:20)
[2019-04-21] MEDS ORDERED: IBUPROFEN 400 MG TABLET (FP) PO PRN (17:20)
[2019-04-21] MEDS ORDERED: MENTHOL/PHENOL 1 EACH UD MM PRN (17:20)
[2019-04-21] MEDS ORDERED: MAG HYDROX/AL HYDROX/SIMETH 30 ML UNIT-DOSE CUP PO PRN (17:20)
[2019-04-21] MEDS ORDERED: ACETAMINOPHEN 325 MG TABLET (FP) PO PRN ×2 (17:20)
[2019-04-21] MEDS ORDERED: ALBUTEROL SO4 0.083% IH SOL 2.5 MG/3 ML VIAL.NEB. NEB PRN (17:23)
[2019-04-21] MEDS ORDERED: chlordiazePOXIDE HCL 25 MG CAPSULE PO ONE (18:15)
[2019-04-21] MEDS: METHOCARBAMOL 500 MG TABLET PO PRN (18:39)
[2019-04-21] MEDS: THIAMINE HCL 100 MG TABLET (FP) PO SCH (22:06)
[2019-04-21] MEDS: chlordiazePOXIDE HCL 25 MG CAPSULE PO SCH (22:06)
[2019-04-21] MEDS: cloNIDine HCL 0.1 MG TABLET PO SCH (22:06)
[2019-04-21] MEDS: MELATONIN 5 MG TABLETS PO PRN (22:07)
[2019-04-21] MEDS ORDERED: QUEtiapine FUMARATE 50 MG TABLET PO ONE (23:00)
[2019-04-22] MEDS: chlordiazePOXIDE HCL 25 MG CAPSULE PO SCH ×3 (06:21→22:07)
[2019-04-22] MEDS: METHOCARBAMOL 500 MG TABLET PO PRN ×2 (10:16→16:45)
[2019-04-22] MEDS: PRENATAL VITAMINS W/ FOLIC ACID TABLET (FP) PO SCH (10:16)
[2019-04-22] MEDS: chlordiazePOXIDE HCL 10 MG CAPSULE PO PRN ×2 (10:17→18:27)
--- NOTE | 2019-04-22 10:34 | PN ---
S CIWA - CIWA Score Nausea/Vomitin-No Nausea/No Vomiting Muscle Tremors: 2 Anxiety: 2 Agitation: 0-Normal Activity Paroxysmal Sweats: 3 Orientation: 0-Oriented Tacttile Disturbances: 0-None Auditory Disturbances: 0-None Visual Disturbances: 0-None Headache: 2-Mild CIWA-Ar Total Score: 9 BHS Progress Note (SOAP) Subjective: c/o tiredness, anxiety, headache, and sweats. Objective: 04/22/19 10:33 Vital Signs 04/22/19 04/22/19 04/22/19 03:30 06:03 09:25 Temperature 96.3 F L 97.0 F L Pulse Rate 68 61 Respiratory 18 18 18 Rate Blood Pressure 148/93 150/87 Labs pending. Assessment: 04/22/19 10:34 AOX3, in no acute respiratory distress. Full rom, ambulating in the unit. Withdrawal symptoms. Plan: continue detox.
[2019-04-22 11:04] LABS: ALBUMIN 3.3 g/dl (3.4-5.0); BILIRUBIN,TOTAL 0.7 mg/dL (0.2-1); BLOOD UREA NITROGEN 15.2 mg/dL (7-18); CALCIUM 8.9 mg/dL (8.5-10.1); CREATININE 0.7 mg/dL (0.55-1.3); POTASSIUM 3.7 mmol/L (3.5-5.1); TOT PROT 5.8 g/dl (6.4-8.2)
[2019-04-22 11:10] LABS: HEMATOCRIT 37.4 % (35.4-49); HEMOGLOBIN 12.7 GM/dL (11.7-16.9); MCH 32.4 pg (25.7-33.7); MEAN CELL VOLUME 95.3 fl (80-96); MEAN PLT VOLUME 8.2 fl (7.5-11.1); PLATELET COUNT 226 K/MM3 (134-434); RBC 3.93 M/mm3 (4.00-5.60); RDW 14.6 % (11.9-15.9); WHITE BLOOD COUNT 5.1 K/mm3 (4.0-10.0)
--- NOTE | 2019-04-22 11:23 | CONSULT ---
[facility] Psychiatric Consult - Data Date of interview: 04/22/19 Admission source: [facility] Identifying data: Readmission to [facility] for this 54 y/o male self- referred for detoxification (NICANOR issues : alcohol, cocaine, nicotine). Interviewed at [address] [place] [address]. Patient is single, a father of one, domiciled, unemployed and deprived of financial assistance. Substance Abuse History: Discussed with patient. See current [facility] report for details. Smoking history: Former smoker (Stopped in 2009). Have you smoked in the past 12 months: No. Hx Chewing Tobacco Use: No. Initiated information on smoking cessation: No. - Substance & Tx. History. Hx Alcohol Use: Yes. Hx Substance Use: Yes. Substance Use Type: Alcohol, Cocaine. Hx Substance Use Treatment: Yes (detox, rehab, outpatient). - Substances abused. Alcohol. Substance route: Oral. Frequency: Daily. Amount used: 1-2 liters of Vodka/ day. Age of first use: 14. Date of last use: 04/20/19 Medical History: Medical profile is remarkable for bronchial asthma, hypertension, chronic lumbar pain and a history of bilateral hip replacement. Psychiatric History: No reported history of psychiatric hospitalizations. Patient endorses MDD and Anxiety Disorder. He continues to see a psychiatrist at the [facility] in [facility] for medication management ( lexapro + xanax). Patient admits to buying xanax in the streets (as well). Mr Taylor denies history of suicide attempts. In this interview, patient changed the narrative about his brother's (recanted the suicide story). " My brother was a ordinary seaman working on the 82nd floor at the [employer] on 02/22/01. He in that tragedy." Patient denies history of suicide attempts. Physical/Sexual Abuse/Trauma History: Heavy trauma : lost a brother in the [facility] attack on 02/22/2001. Additional Comment: Urine drug screen results: RONNY-Cocaine, MOP-Opiates, BZO- Benzodiazepines. Noted. Mental Status Exam - Mental Status Exam Alert and Oriented to: Time, Place, Person Cognitive Function: Good Patient Appearance: Well Groomed Mood: Hopeful Affect: Appropriate, Normal Range Patient Behavior: Fatigued, Appropriate, Cooperative Speech Pattern: Clear Voice Loudness: Normal Thought Process: Intact, Goal Oriented Thought Disorder: Not Present Hallucinations: Denies Suicidal Ideation: Denies Homicidal Ideation: Denies Insight/Judgement: Poor Sleep: Fair Appetite: Good Gait/Station: Other (walks with a limp) Psychiatric Findings - Problem List (Thida 1, 2,3) (1) Alcohol dependence with uncomplicated withdrawal Current Visit: Yes Status: Acute (2) Cocaine dependence Current Visit: Yes Status: Chronic Qualifiers: Substance use status: uncomplicated Qualified Code(s): F14.20 - Cocaine dependence, uncomplicated (3) Substance induced mood disorder Current Visit: Yes Status: Chronic (4) History of depression Current Visit: Yes Status: Chronic (5) Insomnia Current Visit: Yes Status: Chronic - Initial Treatment Plan Initial Treatment Plan: Psychoeducation. Sleep hygiene. Detoxification. AA meetings. Support. MAT services discussed in this session. Medications resumed as : seroquel 50 mg po hs + lexapro 10 mg po daily (at patient's request). Side effects/benefits are discussed with the patient. Gave verbal consent to MD. Parker.
[2019-04-22] MEDS: hydrOXYzine PAMOATE 25 MG CAPSULE (FP) PO PRN ×2 (12:15→18:27)
[2019-04-22] MEDS: ESCITALOPRAM OXALATE 10 MG TABLET (FP) PO SCH (12:15)
[2019-04-22] MEDS: THIAMINE HCL 100 MG TABLET (FP) PO SCH (22:07)
[2019-04-22] MEDS: QUEtiapine FUMARATE 50 MG TABLET PO SCH (22:08)
[2019-04-22] MEDS: cloNIDine HCL 0.1 MG TABLET PO SCH (22:08)
[2019-04-23] MEDS: chlordiazePOXIDE 5 MG CAPSULE PO SCH ×3 (05:42→21:27)
[2019-04-23] MEDS: hydrOXYzine PAMOATE 25 MG CAPSULE (FP) PO PRN ×4 (05:43→22:31)
--- NOTE | 2019-04-23 09:52 | PN ---
S CIWA - CIWA Score Nausea/Vomitin-Mild Nausea/No Vomiting Muscle Tremors: 2 Anxiety: 2 Agitation: 2 Paroxysmal Sweats: 1-Minimal Palms Moist Orientation: 0-Oriented Tacttile Disturbances: 0-None Auditory Disturbances: 0-None Visual Disturbances: 0-None Headache: 0-None Present CIWA-Ar Total Score: 8 BHS Progress Note (SOAP) Subjective: 54 years old male admitted on 04/21/19 for alcohol withdrawal sx management treated with librium detox regimen patient tolerated well ate breakfast resting on bed feeling tired discuss supportive networking Objective: 04/23/19 09:51 Vital Signs Temperature 97.8 F 04/23/19 09:01 Pulse Rate 69 04/23/19 09:01 Respiratory Rate 18 04/23/19 09:01 Blood Pressure 128/75 04/23/19 09:01 O2 Sat by Pulse Oximetry (%) Laboratory Last Values WBC 5.1 K/mm3 (4.0-10.0) 04/22/19 07:50 RBC 3.93 M/mm3 (4.00-5.60) L 04/22/19 07:50 Hgb 12.7 GM/dL (11.7-16.9) 04/22/19 07:50 Hct 37.4 % (35.4-49) 04/22/19 07:50 MCV 95.3 fl (80-96) 04/22/19 07:50 MCH 32.4 pg (25.7-33.7) 04/22/19 07:50 MCHC 34.0 g/dl (32.0-35.9) 04/22/19 07:50 RDW 14.6 % (11.9-15.9) 04/22/19 07:50 Plt Count 226 K/MM3 (134-434) 04/22/19 07:50 MPV 8.2 fl (7.5-11.1) 04/22/19 07:50 Sodium 140 mmol/L (136-145) 04/22/19 07:50 Potassium 3.7 mmol/L (3.5-5.1) 04/22/19 07:50 Chloride 104 mmol/L (98-107) 04/22/19 07:50 Carbon Dioxide 30 mmol/L (21-32) 04/22/19 07:50 Anion Gap 5 MMOL/L (8-16) L 04/22/19 07:50 BUN 15.2 mg/dL (7-18) 04/22/19 07:50 Creatinine 0.7 mg/dL (0.55-1.3) 04/22/19 07:50 Est GFR (CKD-EPI)AfAm 124.87 04/22/19 07:50 Est GFR (CKD-EPI)NonAf 107.74 04/22/19 07:50 Random Glucose 95 mg/dL (74-106) 04/22/19 07:50 Calcium 8.9 mg/dL (8.5-10.1) 04/22/19 07:50 Total Bilirubin 0.7 mg/dL (0.2-1) 04/22/19 07:50 AST 17 U/L (15-37) 04/22/19 07:50 ALT 27 U/L (13-61) 04/22/19 07:50 Alkaline Phosphatase 67 U/L (45-117) 04/22/19 07:50 Total Protein 5.8 g/dl (6.4-8.2) L 04/22/19 07:50 Albumin 3.3 g/dl (3.4-5.0) L 04/22/19 07:50 lab noted Assessment: 04/23/19 09:52 alcohol withdrawal sx Plan: continue librium detox regimen
[2019-04-23] MEDS: ESCITALOPRAM OXALATE 10 MG TABLET (FP) PO SCH (10:05)
[2019-04-23] MEDS: PRENATAL VITAMINS W/ FOLIC ACID TABLET (FP) PO SCH (10:05)
[2019-04-23] MEDS: chlordiazePOXIDE HCL 10 MG CAPSULE PO PRN ×2 (10:07→19:40)
[2019-04-23] MEDS: METHOCARBAMOL 500 MG TABLET PO PRN (12:26)
[2019-04-23] MEDS: QUEtiapine FUMARATE 50 MG TABLET PO SCH (21:27)
[2019-04-23] MEDS: THIAMINE HCL 100 MG TABLET (FP) PO SCH (21:27)
[2019-04-23] MEDS: cloNIDine HCL 0.1 MG TABLET PO SCH (21:27)
[2019-04-24] MEDS ORDERED: chlordiazePOXIDE HCL 10 MG CAPSULE PO PRN
[2019-04-24] MEDS: chlordiazePOXIDE HCL 10 MG CAPSULE PO SCH ×3 (05:09→22:00)
[2019-04-24] MEDS: PRENATAL VITAMINS W/ FOLIC ACID TABLET (FP) PO SCH (09:03)
[2019-04-24] MEDS: hydrOXYzine PAMOATE 25 MG CAPSULE (FP) PO PRN ×2 (09:03→15:05)
[2019-04-24] MEDS: ESCITALOPRAM OXALATE 10 MG TABLET (FP) PO SCH (09:03)
--- NOTE | 2019-04-24 09:44 | PN ---
[facility] CIWA - CIWA Score Nausea/Vomitin-No Nausea/No Vomiting Muscle Tremors: 2 Anxiety: 2 Agitation: 1-Slight > Activity Paroxysmal Sweats: No Perspiration Orientation: 0-Oriented Tacttile Disturbances: 0-None Auditory Disturbances: 0-None Visual Disturbances: 0-None Headache: 0-None Present CIWA-Ar Total Score: 5 S Progress Note (SOAP) Subjective: 54 years old male admitted on 04/21/19 for alcohol withdrawal sx management treated with librium detox regimen feeling better today requests [facility] that last alcohol rehab helped his sobriety Objective: 04/24/19 09:40 Vital Signs Temperature 97.0 F L 04/24/19 09:19 Pulse Rate 61 04/24/19 09:19 Respiratory Rate 18 04/24/19 09:19 Blood Pressure 140/77 04/24/19 09:19 O2 Sat by Pulse Oximetry (%) Laboratory Last Values WBC 5.1 K/mm3 (4.0-10.0) 04/22/19 07:50 RBC 3.93 M/mm3 (4.00-5.60) L 04/22/19 07:50 Hgb 12.7 GM/dL (11.7-16.9) 04/22/19 07:50 Hct 37.4 % (35.4-49) 04/22/19 07:50 MCV 95.3 fl (80-96) 04/22/19 07:50 MCH 32.4 pg (25.7-33.7) 04/22/19 07:50 MCHC 34.0 g/dl (32.0-35.9) 04/22/19 07:50 RDW 14.6 % (11.9-15.9) 04/22/19 07:50 Plt Count 226 K/MM3 (134-434) 04/22/19 07:50 MPV 8.2 fl (7.5-11.1) 04/22/19 07:50 Sodium 140 mmol/L (136-145) 04/22/19 07:50 Potassium 3.7 mmol/L (3.5-5.1) 04/22/19 07:50 Chloride 104 mmol/L (98-107) 04/22/19 07:50 Carbon Dioxide 30 mmol/L (21-32) 04/22/19 07:50 Anion Gap 5 MMOL/L (8-16) L 04/22/19 07:50 BUN 15.2 mg/dL (7-18) 04/22/19 07:50 Creatinine 0.7 mg/dL (0.55-1.3) 04/22/19 07:50 Est GFR (CKD-EPI)AfAm 124.87 04/22/19 07:50 Est GFR (CKD-EPI)NonAf 107.74 04/22/19 07:50 Random Glucose 95 mg/dL (74-106) 04/22/19 07:50 Calcium 8.9 mg/dL (8.5-10.1) 04/22/19 07:50 Total Bilirubin 0.7 mg/dL (0.2-1) 04/22/19 07:50 AST 17 U/L (15-37) 04/22/19 07:50 ALT 27 U/L (13-61) 04/22/19 07:50 Alkaline Phosphatase 67 U/L (45-117) 04/22/19 07:50 Total Protein 5.8 g/dl (6.4-8.2) L 04/22/19 07:50 Albumin 3.3 g/dl (3.4-5.0) L 04/22/19 07:50 lab noted bp elevation starts amlodipine 5 mg po daily 04/24/19 09:44 Assessment: 04/24/19 09:44 alcohol withdrawal sx Plan: continue librium detox regimen
[2019-04-24] MEDS: METHOCARBAMOL 500 MG TABLET PO PRN (11:08)
[2019-04-24] MEDS: amLODIPine BESYLATE 5 MG TABLET (FP) PO SCH (11:08)
[2019-04-24] MEDS: cloNIDine HCL 0.1 MG TABLET PO SCH (22:00)
[2019-04-24] MEDS: THIAMINE HCL 100 MG TABLET (FP) PO SCH (22:00)
[2019-04-24] MEDS: QUEtiapine FUMARATE 50 MG TABLET PO SCH (22:00)
[2019-04-24] MEDS: MELATONIN 5 MG TABLETS PO PRN (22:02)
[2019-04-25] MEDS ORDERED: chlordiazePOXIDE HCL 10 MG CAPSULE PO ONE (05:00)
[2019-04-25] MEDS: PRENATAL VITAMINS W/ FOLIC ACID TABLET (FP) PO SCH (10:03)
[2019-04-25] MEDS: amLODIPine BESYLATE 5 MG TABLET (FP) PO SCH (10:03)
[2019-04-25] MEDS: ESCITALOPRAM OXALATE 10 MG TABLET (FP) PO SCH (10:03)
[2019-04-25] MEDS: hydrOXYzine PAMOATE 25 MG CAPSULE (FP) PO PRN (10:04)
[2019-04-25] MEDS: METHOCARBAMOL 500 MG TABLET PO PRN (11:02)
[2019-04-25 13:15] VITALS: BP 141/89; PULSE 66; TEMP 97.1
--- NOTE | 2019-04-25 13:21 | DS ---
[facility] Detox Discharge Summary Admission Date: 04/21/19 Discharge Date: 04/25/19 - History Present History: Alcohol Dependence Additional Comments: 54 years old male admitted on 04/21/19 for alcohol withdrawal sx management treated with librium detox regimen patient is alert oriented x 3 cardiac S1S2 regular rate rhythm respiratory clear lung bilaterally on auscultation extremities full range of motion - Physical Exam Results Vital Signs: Vital Signs Temperature 97.1 F L 04/25/19 13:14 Pulse Rate 66 04/25/19 13:14 Respiratory Rate 18 04/25/19 13:14 Blood Pressure 141/89 04/25/19 13:14 O2 Sat by Pulse Oximetry (%) Pertinent Admission Physical Exam Findings: alcohol withdrawal sx Laboratory Last Values WBC 5.1 K/mm3 (4.0-10.0) 04/22/19 07:50 RBC 3.93 M/mm3 (4.00-5.60) L 04/22/19 07:50 Hgb 12.7 GM/dL (11.7-16.9) 04/22/19 07:50 Hct 37.4 % (35.4-49) 04/22/19 07:50 MCV 95.3 fl (80-96) 04/22/19 07:50 MCH 32.4 pg (25.7-33.7) 04/22/19 07:50 MCHC 34.0 g/dl (32.0-35.9) 04/22/19 07:50 RDW 14.6 % (11.9-15.9) 04/22/19 07:50 Plt Count 226 K/MM3 (134-434) 04/22/19 07:50 MPV 8.2 fl (7.5-11.1) 04/22/19 07:50 Sodium 140 mmol/L (136-145) 04/22/19 07:50 Potassium 3.7 mmol/L (3.5-5.1) 04/22/19 07:50 Chloride 104 mmol/L (98-107) 04/22/19 07:50 Carbon Dioxide 30 mmol/L (21-32) 04/22/19 07:50 Anion Gap 5 MMOL/L (8-16) L 04/22/19 07:50 BUN 15.2 mg/dL (7-18) 04/22/19 07:50 Creatinine 0.7 mg/dL (0.55-1.3) 04/22/19 07:50 Est GFR (CKD-EPI)AfAm 124.87 04/22/19 07:50 Est GFR (CKD-EPI)NonAf 107.74 04/22/19 07:50 Random Glucose 95 mg/dL (74-106) 04/22/19 07:50 Calcium 8.9 mg/dL (8.5-10.1) 04/22/19 07:50 Total Bilirubin 0.7 mg/dL (0.2-1) 04/22/19 07:50 AST 17 U/L (15-37) 04/22/19 07:50 ALT 27 U/L (13-61) 04/22/19 07:50 Alkaline Phosphatase 67 U/L (45-117) 04/22/19 07:50 Total Protein 5.8 g/dl (6.4-8.2) L 04/22/19 07:50 Albumin 3.3 g/dl (3.4-5.0) L 04/22/19 07:50 lab noted - Treatment Hospital Course: Detox Protocol Followed, Detoxed Safely, Responded well, Discharged Condition Good, Rehab Referral Accepted Patient has Accepted [facility] Referral [facility] - Medication Discharge Medications: Ambulatory Orders Albuterol Sulfate Inhaler - [Ventolin HFA Inhaler -] 1 - 2 inh PO Q4H PRN Escitalopram Oxalate [Lexapro -] 10 mg PO DAILY #30 tablet 02/09/19 Naltrexone HCl [Revia -] 50 mg PO DAILY 15 Days #15 tablet 02/09/19 Clonidine HCl 0.3 mg PO HS 04/21/19 Escitalopram Oxalate [Lexapro -] 10 mg PO DAILY #30 tablet 04/24/19 Quetiapine Fumarate [Seroquel -] 50 mg PO HS #30 tablet 04/24/19 - Diagnosis (1) Alcohol dependence with uncomplicated withdrawal Current Visit: Yes Status: Acute (2) Hypertension Current Visit: Yes Status: Chronic Qualifiers: Hypertension type: essential hypertension Qualified Code(s): I10 - Essential (primary) hypertension (3) Substance induced mood disorder Current Visit: Yes Status: Suspected (4) Alcohol dependence Current Visit: Yes Status: Acute Qualifiers: Substance use status: uncomplicated Qualified Code(s): F10.20 - Alcohol dependence, uncomplicated - AMA Did Patient Leave Against Medical Advice: No CIWA Score - CIWA Score Nausea/Vomitin-No Nausea/No Vomiting Muscle Tremors: 1-None Visible, but [place] Anxiety: 1-Mildly Anxious Agitation: 0-Normal Activity Paroxysmal Sweats: No Perspiration Orientation: 0-Oriented Tacttile Disturbances: 0-None Auditory Disturbances: 0-None Visual Disturbances: 0-None Headache: 0-None Present CIWA-Ar Total Score: 2
== END 2019-04-25 14:43 | disposition home or self-care (01) | DRG 774 ==
LOC: YASAS 12:45 → Y3N 17:54
PROVIDERS: ADMIT Allergy & Immunology; ATTEND Allergy & Immunology
PROC: HZ2ZZZZ Detoxification Services for Substance Abuse Treatment (ICD-10-PCS; principal; 2019-04-21)
DX: F10.230 Alcohol dependence with withdrawal, uncomplicated (principal); F14.20 Cocaine dependence, uncomplicated; F19.24 Other psychoactive substance dependence with psychoactive substance-induced mood disorder; F41.8 Other specified anxiety disorders; F32.9 Major depressive disorder, single episode, unspecified; G47.00 Insomnia, unspecified; I10 Essential (primary) hypertension; J45.909 Unspecified asthma, uncomplicated; H55.00 Unspecified nystagmus; M54.5 Low back pain; G89.29 Other chronic pain; J34.89 Other specified disorders of nose and nasal sinuses; E86.0 Dehydration; Z96.643 Presence of artificial hip joint, bilateral; Z87.891 Personal history of nicotine dependence; Z88.5 Allergy status to narcotic agent
CPT/HCPCS: 36415; 80053; 85027; J0735

== ENCOUNTER 2019-04-25 14:55 | Inpatient (IN) | payer OTHER ==
--- NOTE | 2019-04-25 13:27 | HP ---
[facility] Rehab Assess/Revision - Admission History Admitted to Rehab from: [place] [facility] Date of Admission to Rehab: 04/25/19 - Findings Detox History & Physical reviewed: Yes Concur with findings: Yes Comments/Additional Findings: transferred from detox to rehab admission as per protocol Inpatient Rehab Admission - Rehab Decision to Admit Inpatient rehab admission?: Yes - Initial Determination Are CD services needed?: Yes Free of communicable disease: Yes Not in need of hospitalization: Yes - Rehab Admission Criteria Previous failed treatment: Yes Poor recovery environment: Yes Comorbidities: Yes Lacks judgement: Yes Patient is meeting Inpatient Rehab admission criteria:: Yes
[~2019-04-25 14:55] MED LIST changes: +ACETAMINOPHEN 325 MG TABLET (FP) PO PRN
[2019-04-25] MEDS: cloNIDine HCL 0.1 MG TABLET PO SCH (21:22)
[2019-04-25] MEDS: THIAMINE HCL 100 MG TABLET (FP) PO SCH (21:22)
[2019-04-25] MEDS: QUEtiapine FUMARATE 50 MG TABLET PO SCH (21:22)
[2019-04-26] MEDS: amLODIPine BESYLATE 5 MG TABLET (FP) PO SCH (10:21)
[2019-04-26] MEDS: PRENATAL VITAMINS W/ FOLIC ACID TABLET (FP) PO SCH (10:21)
[2019-04-26] MEDS: ESCITALOPRAM OXALATE 10 MG TABLET (FP) PO SCH (10:21)
[2019-04-26] MEDS ORDERED: hydrOXYzine PAMOATE 50 MG CAPSULE (FP) PO PRN (10:42)
--- NOTE | 2019-04-26 10:46 | PN ---
S Progress Note Note: Mr. Taylor is a 54 y/o male with a hx of NICANOR admitted to rehab yesterday. Pt c/ o anxiety and requesting Vistaril. Vital Signs - 24 hr 04/25/19 04/26/19 04/26/19 15:21 00:30 03:30 Temperature 97.8 F Pulse Rate 83 Respiratory 18 18 18 Rate Blood Pressure 120/70 04/26/19 07:16 Temperature 97.2 F L Pulse Rate 62 Respiratory 18 Rate Blood Pressure 118/72 Alert o x 3 nad oob ambulating with steady gait A/P s/p detox anxiety Vistaril 25 mg po Q6H prn for anxiety
[2019-04-26] MEDS: hydrOXYzine PAMOATE 25 MG CAPSULE (FP) PO PRN (17:04)
[2019-04-26] MEDS: THIAMINE HCL 100 MG TABLET (FP) PO SCH (21:23)
[2019-04-26] MEDS: cloNIDine HCL 0.1 MG TABLET PO SCH (21:23)
[2019-04-26] MEDS: QUEtiapine FUMARATE 50 MG TABLET PO SCH (21:23)
[2019-04-26] MEDS: MELATONIN 5 MG TABLETS PO PRN (21:24)
[2019-04-27] MEDS: ESCITALOPRAM OXALATE 10 MG TABLET (FP) PO SCH (10:39)
[2019-04-27] MEDS: PRENATAL VITAMINS W/ FOLIC ACID TABLET (FP) PO SCH (10:40)
[2019-04-27] MEDS: amLODIPine BESYLATE 5 MG TABLET (FP) PO SCH (10:40)
[2019-04-27] MEDS: hydrOXYzine PAMOATE 25 MG CAPSULE (FP) PO PRN ×2 (15:55→21:36)
[2019-04-27] MEDS: THIAMINE HCL 100 MG TABLET (FP) PO SCH (21:35)
[2019-04-27] MEDS: cloNIDine HCL 0.1 MG TABLET PO SCH (21:35)
[2019-04-27] MEDS: QUEtiapine FUMARATE 50 MG TABLET PO SCH (21:36)
[2019-04-27] MEDS: MELATONIN 5 MG TABLETS PO PRN (21:36)
[2019-04-28] MEDS: ESCITALOPRAM OXALATE 10 MG TABLET (FP) PO SCH (10:09)
[2019-04-28] MEDS: PRENATAL VITAMINS W/ FOLIC ACID TABLET (FP) PO SCH (10:09)
[2019-04-28] MEDS: amLODIPine BESYLATE 5 MG TABLET (FP) PO SCH (10:09)
[2019-04-28] MEDS: hydrOXYzine PAMOATE 25 MG CAPSULE (FP) PO PRN ×2 (12:30→21:37)
--- NOTE | 2019-04-28 18:39 | CONSULT ---
[facility] - Data Date of interview: 04/28/19 Admission source: [facility]
[2019-04-28] MEDS: cloNIDine HCL 0.1 MG TABLET PO SCH (21:36)
[2019-04-28] MEDS: MELATONIN 5 MG TABLETS PO PRN (21:37)
[2019-04-28] MEDS: THIAMINE HCL 100 MG TABLET (FP) PO SCH (21:37)
[2019-04-28] MEDS: QUEtiapine FUMARATE 50 MG TABLET PO SCH (21:38)
[2019-04-29] MEDS: amLODIPine BESYLATE 5 MG TABLET (FP) PO SCH (10:17)
[2019-04-29] MEDS: PRENATAL VITAMINS W/ FOLIC ACID TABLET (FP) PO SCH (10:17)
[2019-04-29] MEDS: ESCITALOPRAM OXALATE 10 MG TABLET (FP) PO SCH (10:17)
--- NOTE | 2019-04-29 11:10 | CONSULT ---
[facility] Psychiatric Consult - Data Date of interview: 04/29/19 Admission source: Transfer from [address] [place] [address] Identifying data: Continuity of care at [address] (rehabilitation program) for this 54 y/o male who completed course of detoxification treatment (NICANOR issues : alcohol, cocaine, nicotine) at [address] [place] [address]. Patient is single, a father of one, domiciled, unemployed and deprived of financial assistance. Substance Abuse History: Re-discussed with patient. See current [facility] report for details. Smoking history: Former smoker (Stopped in 2009). Have you smoked in the past 12 months: No. Hx Chewing Tobacco Use: No. Initiated information on smoking cessation: No. - Substance & Tx. History. Hx Alcohol Use: Yes. Hx Substance Use: Yes. Substance Use Type: Alcohol, Cocaine. Hx Substance Use Treatment: Yes (detox, rehab, outpatient). - Substances abused. Alcohol. Substance route: Oral. Frequency: Daily. Amount used: 1-2 liters of Vodka/ day. Age of first use: 14. Date of last use: 04/20/19 Medical History: Medical profile is remarkable for bronchial asthma, hypertension, chronic lumbar pain and a history of bilateral hip replacement. Psychiatric History: As narrated durring encounter of 04/24/19. No change : patient denies history of psychiatric hospitalizations. Endorses MDD and Anxiety Disorder. He continues to see a psychiatrist at the [facility] in [facility] for medication management (lexapro + xanax). Patient admits to buying xanax in the streets (as well). Mr Taylor denies history of suicide attempts. In interview of 04/24/19, the patient changed the narrative about his brother's (recanted the suicide story). " My brother was a mri technologist working on the 82nd floor at the [employer] on . He in that tragedy." Patient denies history of suicide attempts. Physical/Sexual Abuse/Trauma History: Heavy trauma : lost a brother in the [facility] attack on 02/22/2001. Additional Comment: Urine drug screen results: RONNY-Cocaine, MOP-Opiates, BZO- Benzodiazepines. Noted. Mental Status Exam - Mental Status Exam Alert and Oriented to: Time, Place, Person Cognitive Function: Good Patient Appearance: Well Groomed Mood: Hopeful, Euthymic Affect: Appropriate, Normal Range Patient Behavior: Appropriate (pleasant and friendly), Cooperative Speech Pattern: Clear, Appropriate Voice Loudness: Normal Thought Process: Intact, Goal Oriented Thought Disorder: Not Present Hallucinations: Denies Suicidal Ideation: Denies Homicidal Ideation: Denies Insight/Judgement: Fair Sleep: Well Appetite: Good Muscle strength/Tone: Normal Gait/Station: Normal Psychiatric Findings - Problem List ([place] 1, 2,3) (1) Alcohol dependence Current Visit: Yes Status: Chronic Qualifiers: Substance use status: uncomplicated Qualified Code(s): F10.20 - Alcohol dependence, uncomplicated (2) Cocaine dependence Current Visit: Yes Status: Chronic Qualifiers: Substance use status: uncomplicated Qualified Code(s): F14.20 - Cocaine dependence, uncomplicated (3) Sedative, hypnotic or anxiolytic dependence with withdrawal, uncomplicated Current Visit: Yes Status: Chronic (4) History of depression Current Visit: Yes Status: Chronic (5) Insomnia Current Visit: Yes Status: Chronic - Initial Treatment Plan Initial Treatment Plan: Psychoeducation. Sleep hygiene. Support. Groups. Seroquel is raised to 100 mg po hs (patient's specific request). Side effects/ benefits revisited with patient in this session. Gave verbal consent to MD. Parker.
[2019-04-29] MEDS: hydrOXYzine PAMOATE 25 MG CAPSULE (FP) PO PRN ×2 (12:49→18:48)
[2019-04-29] MEDS: QUEtiapine FUMARATE 100 MG TABLET (FP) PO SCH (21:22)
[2019-04-29] MEDS: THIAMINE HCL 100 MG TABLET (FP) PO SCH (21:22)
[2019-04-29] MEDS: cloNIDine HCL 0.1 MG TABLET PO SCH (21:22)
[2019-04-29] MEDS: MELATONIN 5 MG TABLETS PO PRN (21:23)
[2019-04-30] MEDS: amLODIPine BESYLATE 5 MG TABLET (FP) PO SCH (09:50)
[2019-04-30] MEDS: PRENATAL VITAMINS W/ FOLIC ACID TABLET (FP) PO SCH (09:50)
[2019-04-30] MEDS: ESCITALOPRAM OXALATE 10 MG TABLET (FP) PO SCH (09:50)
[2019-04-30] MEDS: hydrOXYzine PAMOATE 25 MG CAPSULE (FP) PO PRN ×3 (09:51→21:26)
[2019-04-30] MEDS: THIAMINE HCL 100 MG TABLET (FP) PO SCH (21:25)
[2019-04-30] MEDS: cloNIDine HCL 0.1 MG TABLET PO SCH (21:25)
[2019-04-30] MEDS: MELATONIN 5 MG TABLETS PO PRN (21:25)
[2019-04-30] MEDS: QUEtiapine FUMARATE 100 MG TABLET (FP) PO SCH (21:25)
[2019-05-01] MEDS: PRENATAL VITAMINS W/ FOLIC ACID TABLET (FP) PO SCH (09:22)
[2019-05-01] MEDS: ESCITALOPRAM OXALATE 10 MG TABLET (FP) PO SCH (09:23)
[2019-05-01] MEDS: hydrOXYzine PAMOATE 25 MG CAPSULE (FP) PO PRN ×2 (09:23→17:13)
[2019-05-01] MEDS: amLODIPine BESYLATE 5 MG TABLET (FP) PO SCH (10:41)
[2019-05-01] MEDS: MELATONIN 5 MG TABLETS PO PRN (21:28)
[2019-05-01] MEDS: THIAMINE HCL 100 MG TABLET (FP) PO SCH (21:28)
[2019-05-01] MEDS: QUEtiapine FUMARATE 100 MG TABLET (FP) PO SCH (21:28)
[2019-05-01] MEDS: cloNIDine HCL 0.1 MG TABLET PO SCH (21:28)
[2019-05-02] MEDS: amLODIPine BESYLATE 5 MG TABLET (FP) PO SCH (09:02)
[2019-05-02] MEDS: ESCITALOPRAM OXALATE 10 MG TABLET (FP) PO SCH (09:02)
[2019-05-02] MEDS: PRENATAL VITAMINS W/ FOLIC ACID TABLET (FP) PO SCH (09:02)
[2019-05-02] MEDS: hydrOXYzine PAMOATE 25 MG CAPSULE (FP) PO PRN ×3 (09:02→21:26)
[2019-05-02] MEDS: MINERAL OIL/PETROLAT/WATER TOPICAL CREAM 113 GM JAR TP SCH (12:59)
--- NOTE | 2019-05-02 14:40 | PN ---
[facility] Progress Note Note: Pt requests to reduce clonidine 0.3mg po hs to 0.2 mg hs stating he wants to get off it eventually. However, pt was on 0.2 mg po hs as posted in [facility] pharmacy in December 2018 but reports it was increased to 0.3 mg in March which is not verified. Pt reports he has a psychiatric doctor Dr. Bernal @ [facility] , [address] [place] [address]. Pt reports hx of BP spikes with anxiety where clonidine was given for anxiety/BP spikes by his psychiatrist. Reports no real HTN dx but was given Norvasc 5 mg daily in [facility] this last admission. Vital Signs - 24 hr 05/02/19 05/02/19 05/02/19 00:30 03:30 06:52 Temperature 97.5 F L Pulse Rate 59 L Respiratory 18 18 18 Rate Blood Pressure 116/64 A/P Clonidine 0.2 mg po HS Pt will follow up with his providers after rehab to [facility] for primary care.
[2019-05-02] MEDS: cloNIDine HCL 0.1 MG TABLET PO SCH (21:25)
[2019-05-02] MEDS: MELATONIN 5 MG TABLETS PO PRN (21:26)
[2019-05-02] MEDS: QUEtiapine FUMARATE 100 MG TABLET (FP) PO SCH (21:26)
[2019-05-02] MEDS: THIAMINE HCL 100 MG TABLET (FP) PO SCH (23:16)
[2019-05-03] MEDS: hydrOXYzine PAMOATE 25 MG CAPSULE (FP) PO PRN ×3 (07:55→20:46)
[2019-05-03] MEDS: amLODIPine BESYLATE 5 MG TABLET (FP) PO SCH (10:17)
[2019-05-03] MEDS: MINERAL OIL/PETROLAT/WATER TOPICAL CREAM 113 GM JAR TP SCH (10:17)
[2019-05-03] MEDS: ESCITALOPRAM OXALATE 10 MG TABLET (FP) PO SCH (10:17)
[2019-05-03] MEDS: PRENATAL VITAMINS W/ FOLIC ACID TABLET (FP) PO SCH (10:17)
[2019-05-03] MEDS: MELATONIN 5 MG TABLETS PO PRN (21:29)
[2019-05-03] MEDS: cloNIDine HCL 0.1 MG TABLET PO SCH (21:29)
[2019-05-03] MEDS: QUEtiapine FUMARATE 100 MG TABLET (FP) PO SCH (21:29)
[2019-05-03] MEDS: THIAMINE HCL 100 MG TABLET (FP) PO SCH (21:29)
[2019-05-04] MEDS: hydrOXYzine PAMOATE 25 MG CAPSULE (FP) PO PRN ×3 (07:21→21:26)
[2019-05-04] MEDS: PRENATAL VITAMINS W/ FOLIC ACID TABLET (FP) PO SCH (10:23)
[2019-05-04] MEDS: ESCITALOPRAM OXALATE 10 MG TABLET (FP) PO SCH (10:23)
[2019-05-04] MEDS: MINERAL OIL/PETROLAT/WATER TOPICAL CREAM 113 GM JAR TP SCH (10:23)
[2019-05-04] MEDS: amLODIPine BESYLATE 5 MG TABLET (FP) PO SCH (10:23)
--- NOTE | 2019-05-04 14:07 | DS ---
[facility] Rehab Discharge Summary - [facility] Rehab Discharge Summary Admission Date: 04/25/19 Discharge Date: 05/05/19 - History Present History: Alcohol dependence Additional Comments: Pt is a 54 y/o male with a hx of NICANOR admitted to rehab and discharge after completion of treatment. Pt has been referred for CD aftercare follow up at [place], [place]. Pt reports he has a psychiatric doctor Dr. Henok Bernal @ [facility] , [address] [place] [address]. Reports no other PCP but will follow up with primary care with [facility] clinic in [place] after discharge. Pertinent Past History: HTN(on/off- reports anxiety related) s/p edmar. Hip Replacement Eczema Mood disorder - Discharge Physical Exam Vital Signs: Vital Signs Temperature 97.0 F L 05/04/19 07:13 Pulse Rate 72 05/04/19 10:50 Respiratory Rate 18 05/04/19 10:50 Blood Pressure 145/82 05/04/19 10:50 O2 Sat by Pulse Oximetry (%) Alert o x 3 nad oob ambulating with steady gait cardiac:s1 s2,rrr lungs:cta,edmar. abdomen:soft,+bs,nt,nd extremities/skin:no edema,full ROM, skin intact. Pertinent Admission Physical Exam Findings: Status unchanged at admission - Treatment Discharge Condition: Discharge condition good Hospital Course: Rehabilitated safely Responded well CD aftercare referral accepted - Medication Discharge Medications: Ambulatory Orders Albuterol Sulfate Inhaler - [Ventolin HFA Inhaler -] 1 - 2 inh PO Q4H PRN Amlodipine Besylate 5 mg PO DAILY #30 tablet 05/04/19 - Medication-Assisted Treatment (MAT) Medication-Assisted Treatment (MAT): No - Discharge Instructions Diet, activity, other medical instructions: Diet:IRAJ Activity: oob ad jamey Other medical instructions:follow up with primary care at [facility] within 1 week after discharge. Follow up with psych doctor, Dr. Henok Bernal 1 week after discharge. follow up with CD aftercare as recommended and scheduled at [facility]. - Diagnosis (1) History of bilateral hip replacements Status: Chronic (2) Alcohol dependence Status: Chronic Qualifiers: Substance use status: uncomplicated Qualified Code(s): F10.20 - Alcohol dependence, uncomplicated (3) Cocaine dependence Status: Chronic Qualifiers: Substance use status: uncomplicated Qualified Code(s): F14.20 - Cocaine dependence, uncomplicated (4) History of hip replacement Status: Chronic Qualifiers: Laterality: bilateral Qualified Code(s): Z96.643 - Presence of artificial hip joint, bilateral (5) Hypertension Status: Chronic Qualifiers: Hypertension type: unspecified Qualified Code(s): I10 - Essential (primary ) hypertension (6) Perforated nasal septum Status: Chronic (7) Sedative dependence Status: Chronic (8) Psoriasiform eczema Status: Chronic - Follow-up Referral Minutes to complete discharge: 20 - AMA Did Patient Leave Against Medical Advice: No
[2019-05-04] MEDS: THIAMINE HCL 100 MG TABLET (FP) PO SCH (21:26)
[2019-05-04] MEDS: QUEtiapine FUMARATE 100 MG TABLET (FP) PO SCH (21:26)
[2019-05-04] MEDS: cloNIDine HCL 0.1 MG TABLET PO SCH (21:26)
[2019-05-04] MEDS: MELATONIN 5 MG TABLETS PO PRN (21:26)
[2019-05-05] MEDS: hydrOXYzine PAMOATE 25 MG CAPSULE (FP) PO PRN (06:27)
[2019-05-05 07:01] VITALS: BP 108/73; PULSE 65; TEMP 97.4
--- NOTE | 2019-05-05 08:17 | PN ---
[facility] Progress Note Note: Psychiatric nurse practitioner note: Patient scheduled for discharged today. Thirty day prescription of lexapro 10mg + Seroquel 50mg HS was electronically sent on 04/24/[address] Cross to [facility] pharmacy, [address] [place] [address].
[2019-05-05] MEDS: PRENATAL VITAMINS W/ FOLIC ACID TABLET (FP) PO SCH (09:09)
[2019-05-05] MEDS: ESCITALOPRAM OXALATE 10 MG TABLET (FP) PO SCH (09:09)
[2019-05-05] MEDS: amLODIPine BESYLATE 5 MG TABLET (FP) PO SCH (09:09)
[2019-05-05] MEDS: MINERAL OIL/PETROLAT/WATER TOPICAL CREAM 113 GM JAR TP SCH (09:11)
== END 2019-05-05 10:00 | disposition home or self-care (01) | DRG 772 ==
LOC: YASAS 14:55 → Y5N 14:56
PROVIDERS: ADMIT Neuromusculoskeletal Medicine & OMM; ATTEND Neuromusculoskeletal Medicine & OMM
PROC: HZ42ZZZ Group Counseling for Substance Abuse Treatment, Cognitive-Behavioral (ICD-10-PCS; principal; 2019-04-25)
DX: F10.20 Alcohol dependence, uncomplicated (principal); F13.20 Sedative, hypnotic or anxiolytic dependence, uncomplicated; F14.20 Cocaine dependence, uncomplicated; F39 Unspecified mood [affective] disorder; F32.9 Major depressive disorder, single episode, unspecified; I10 Essential (primary) hypertension; J45.998 Other asthma; G47.00 Insomnia, unspecified; J34.89 Other specified disorders of nose and nasal sinuses; L40.9 Psoriasis, unspecified; Z96.643 Presence of artificial hip joint, bilateral; Z88.5 Allergy status to narcotic agent
CPT/HCPCS: J0735

== ENCOUNTER 2019-06-01 20:48 | Inpatient (IN) | payer OTHER ==
[2019-06-01 22:06] VITALS: BMI 28.0
--- NOTE | 2019-06-01 22:33 | HP ---
CIWA Score Nausea/Vomitin-No Nausea/No Vomiting Muscle Tremors: None Anxiety: 4-Mod. Anxious/Guarded Agitation: 4-Moderately Restless Paroxysmal Sweats: 3 Orientation: 0-Oriented Tacttile Disturbances: 0-None Auditory Disturbances: 0-None Visual Disturbances: 0-None Headache: 0-None Present CIWA-Ar Total Score: 11 - Admission Criteria OASAS Guidelines: Admission for Medically Managed Detox: Requires at least one of the followin. CIWA greater than 12 2. Seizures within the past 24 hours 3. Delirium tremens within the past 24 hours 4. Hallucinations within the past 24 hours 5. Acute intervention needed for co occurring medical disorder 6. Acute intervention needed for co occurring psychiatric disorder 7. Severe withdrawal that cannot be handled at a lower level of care (continued vomiting, continued diarrhea, abnormal vital signs) requiring intravenous medication and/or fluids 8. Patient presents the following: Acute intervention needed for co-occurring med or psych disorder (alcohol intoxication with onset of withdrawal sx's) Admission Criteria Met: Admission criteria met Admitting History and Physical - Smoking History Smoking history: Former smoker Have you smoked in the past 12 months: No - Alcohol/Substance Use Hx Alcohol Use: Yes Admission ROS S - HPI Chief Complaint: seeking alcohol detox Allergies/Adverse Reactions: Allergies Allergy/AdvReac Type Severity Reaction Status Date / Time codeine Allergy Intermediate Elevated Verified 06/01/19 21:49 Blood Pressure History of Present Illness: HERE FOR ALCOHOL DETOX. CLIENT IS SELF REFERRED. KNOWN TO PROGRAM. WAS HERE 1 MONTH AGO FOR REHAB AFTER COMPLETEING DETOX. CLIENT REPORTS RELAPSING 2 WEEKS AFTER DC. HE HAS SINCE BEEN DRINKING DAILY AND CAN NOT STOP. LAST DRINK EARLIER TODAY. PRESENTS WITH C/O WITHDRAWAL SX'S WHILE INTOXICATED. 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 DENIES HX/O SEIZURES, AVH. 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 DENIES ANY SIGNIFICANT CLEAN TIME IN THE PAST YEAR. LIVE WITH GIRLFRIEND, UNEMPLOYED, DUI Exam Limitations: Intoxication (BUT A/O X3) - Ebola screening Have you traveled outside of the country in the last 21 days: No (N) Have you had contact with anyone from an Ebola affected area: No Do you have a fever: No - Review of Systems Constitutional: Chills, Night Sweats, Changes in sleep EENT: reports: No Symptoms Reported Respiratory: reports: No Symptoms reported Cardiac: reports: No Symptoms Reported GI: reports: No Symptoms Reported : reports: No Symptoms Reported Musculoskeletal: reports: Joint Pain (BILAT HIP PAIN- CHRONIC) Integumentary: reports: [place] Neuro: reports: No Symptoms reported Endocrine: reports: No Symptoms Reported Hematology: reports: No Symptoms Reported Psychiatric: reports: Orientated x3, Agitated (IRRITABLE), Anxious, Depressed ( DENIES SI) Other Systems: Reviewed and Negative Patient History - Patient Medical History Hx Anemia: No Hx Asthma: Yes Hx Chronic Obstructive Pulmonary Disease (COPD): No Hx Cancer: No Hx Cardiac Disorders: No Hx Congestive Heart Failure: No Hx Hypertension: Yes Hx Hypercholesterolemia: No Hx Pacemaker: No HX Cerebrovascular Accident: No Hx Seizures: No Hx Dementia: No Hx Diabetes: No Hx Gastrointestinal Disorders: No Hx Liver Disease: No Hx Genitourinary Disorders: No Hx Sexually Transmitted Disorders: No Hx Renal Disease (ESRD): No Hx Thyroid Disease: No Hx Human Immunodeficiency Virus (HIV): No Hx Hepatitis C: No Hx Depression: Yes Hx Suicide Attempt: No Hx Bipolar Disorder: No Hx Schizophrenia: No Other Medical History: DENIES - Patient Surgical History Past Surgical History: Yes Hx Neurologic Surgery: No Hx Cataract Extraction: No Hx Cardiac Surgery: No Hx Lung Surgery: No Hx Breast Surgery: No Hx Breast Biopsy: No Hx Abdominal Surgery: No Hx Appendectomy: No Hx Cholecystectomy: No Hx Genitourinary Surgery: No Hx Orthopedic Surgery: Yes (B/L HIP REPLACEMENTS-) Anesthesia Reaction: No - PPD History Previous Implant?: Yes Documented Results: Negative w/proof Implanted On Prior [facility] Admission?: Yes Date: 09/12/18 Results: 0 mm. PPD to be Administered?: No - Smoking Cessation Smoking history: Former smoker Have you smoked in the past 12 months: No Hx Chewing Tobacco Use: No Initiated information on smoking cessation: No - Substance & Tx. History Hx Alcohol Use: Yes Hx Substance Use: Yes Substance Use Type: Alcohol, Cocaine Hx Substance Use Treatment: Yes ([facility]) - Substances abused Alcohol Substance route: Oral Frequency: Daily Amount used: 1-2 liters of Vodka/day. Age of first use: 14 Date of last use: 06/01/19 Cocaine Substance route: Inhalation Frequency: 1-3 times last 30 days Amount used: 1/2 GM Age of first use: 20 Date of last use: 05/30/19 Admission Physical Exam [facility] - Vital Signs Vital Signs: Vital Signs - 24 hr 06/01/19 21:49 Temperature 98.0 F Pulse Rate 98 H Respiratory 16 Rate Blood Pressure 130/80 - Physical General Appearance: Yes: Moderate Distress, Irritable, Anxious HEENTM: Yes: EOMI, Normocephalic, Normal Voice, RAÚL, Pharynx Normal Respiratory: Yes: Chest Non-Tender, Lungs Clear, Normal Breath Sounds, No Respiratory Distress, No Accessory Muscle Use Neck: Yes: No masses,lesions,Nodules, Supple, Trachea in good position Breast: Yes: Breast Exam Deferred Cardiology: Yes: Regular Rhythm, Regular Rate, S1, S2 Abdominal: Yes: Normal Bowel Sounds, Non Tender, Soft, Protuberent Genitourinary: Yes: Within Normal Limits Back: Yes: Normal Inspection Musculoskeletal: Yes: full range of Motion, Gait Steady Extremities: Yes: Normal Capillary Refill, Normal Range of Motion, Non-Tender Neurological: Yes: Fully Oriented, Alert, Motor Strength 5/5, Depressed Affect ( denies si) Integumentary: Yes: Dry, Warm Lymphatic: Yes: Within Normal Limits - Diagnostic (1) Alcohol dependence with uncomplicated withdrawal Current Visit: Yes Status: Acute (2) Anxiety and depression Current Visit: Yes Status: Chronic (3) Cocaine dependence Current Visit: Yes Status: Acute Qualifiers: Substance use status: uncomplicated Qualified Code(s): F14.20 - Cocaine dependence, uncomplicated (4) History of depression Current Visit: Yes Status: Chronic (5) Hypertension Current Visit: Yes Status: Chronic Qualifiers: Hypertension type: unspecified Qualified Code(s): I10 - Essential (primary ) hypertension Comment: states only goes high when he drinks (6) Insomnia Current Visit: Yes Status: Chronic Qualifiers: Insomnia type: alcohol-induced Qualified Code(s): F10.982 - Alcohol use, unspecified with alcohol-induced sleep disorder (7) Substance induced mood disorder Current Visit: Yes Status: Suspected (8) At risk for dehydration due to poor fluid intake Current Visit: Yes Status: Acute Cleared for Admission [facility] - Detox or Rehab [facility] Level of Care: Medically Managed Detox Regimen/Protocol: Librium Claeared for Rehab Admission: No Breathalyzer - Breathalyzer Breathalyzer: 0.140 Urine Drug Screen - Test Device Lot number: [id number] Expiration date: 01/10/21 - Control Is test valid?: Yes - Results Drug screen NEGATIVE: No Urine drug screen results: RONNY-Cocaine Inpatient Rehab Admission - Rehab Decision to Admit Inpatient rehab admission?: No
[2019-06-01] MEDS ORDERED: MAGNESIUM CITRATE 300 ML BOTTLE PO PRN (22:54)
[2019-06-01] MEDS ORDERED: ONDANSETRON *ODT* 4 MG TABLET SL PRN (22:54)
[2019-06-01] MEDS ORDERED: MENTHOL/PHENOL 1 EACH UD MM PRN (22:54)
[2019-06-01] MEDS ORDERED: MAG HYDROX/AL HYDROX/SIMETH 30 ML UNIT-DOSE CUP PO PRN (22:54)
[2019-06-01] MEDS ORDERED: guaiFENesin 200 MG/10 ML 10 ML UNIT-DOSE CUPS PO PRN (22:54)
[2019-06-01] MEDS ORDERED: MAGNESIUM HYDROX 2400MG/30ML ORAL SUSPENSION 30 ML CUP PO PRN (22:54)
[2019-06-01] MEDS ORDERED: ACETAMINOPHEN 325 MG TABLET (FP) PO PRN ×2 (22:54)
[2019-06-01] MEDS ORDERED: P-EPHED 60MG/TRIPROLIDI 2.5MG TABLET PO PRN (22:54)
[2019-06-01] MEDS ORDERED: DICYCLOMINE HCL 10 MG CAPSULE PO PRN (22:54)
[2019-06-01] MEDS ORDERED: IBUPROFEN 400 MG TABLET (FP) PO PRN (22:54)
[2019-06-01] MEDS ORDERED: BISMUTH SUBSALICYLATE 524 MG/30 ML UD PO PRN (22:54)
[2019-06-01] MEDS: chlordiazePOXIDE HCL 25 MG CAPSULE PO SCH (23:28)
[2019-06-02] MEDS: chlordiazePOXIDE HCL 25 MG CAPSULE PO SCH ×4 (07:55→22:08)
[2019-06-02 10:35] LABS: HEMATOCRIT 37.7 % (35.4-49); HEMOGLOBIN 12.7 GM/dL (11.7-16.9); MCHC 33.8 g/dl (32.0-35.9); MEAN CELL VOLUME 94.6 fl (80-96); MEAN PLT VOLUME 8.1 fl (7.5-11.1); PLATELET COUNT 207 K/MM3 (134-434); RBC 3.98 M/mm3 (4.00-5.60); RDW 13.8 % (11.9-15.9); WHITE BLOOD COUNT 5.9 K/mm3 (4.0-10.0)
[2019-06-02 10:49] LABS: ALBUMIN 3.3 g/dl (3.4-5.0); BILIRUBIN,TOTAL 0.8 mg/dL (0.2-1); BLOOD UREA NITROGEN 17.7 mg/dL (7-18); CALCIUM 8.3 mg/dL (8.5-10.1); CREATININE 0.8 mg/dL (0.55-1.3); POTASSIUM 3.8 mmol/L (3.5-5.1)
[2019-06-02] MEDS: PRENATAL VITAMINS W/ FOLIC ACID TABLET (FP) PO SCH (10:52)
[2019-06-02] MEDS: hydrOXYzine PAMOATE 25 MG CAPSULE (FP) PO PRN ×2 (13:08→21:15)
--- NOTE | 2019-06-02 13:36 | PN ---
[facility] CIWA - CIWA Score Nausea/Vomitin-No Nausea/No Vomiting Muscle Tremors: 3 Anxiety: 2 Agitation: 2 Paroxysmal Sweats: 2 Orientation: 0-Oriented Tacttile Disturbances: 0-None Auditory Disturbances: 0-None Visual Disturbances: 0-None Headache: 0-None Present CIWA-Ar Total Score: 9 S Progress Note (SOAP) Subjective: tired interrupted sleep sweats body aches Objective: 06/02/19 13:35 Vital Signs Temperature 97.5 F L 06/02/19 09:59 Pulse Rate 69 06/02/19 09:59 Respiratory Rate 20 06/02/19 09:59 Blood Pressure 144/85 06/02/19 09:59 O2 Sat by Pulse Oximetry (%) Laboratory Tests 06/02/19 06/02/19 08:00 08:00 WBC 5.9 RBC 3.98 L Hgb 12.7 Hct 37.7 MCV 94.6 MCH 32.0 MCHC 33.8 RDW 13.8 Plt Count 207 MPV 8.1 Sodium 144 Potassium 3.8 Chloride 108 H Carbon Dioxide 29 Anion Gap 7 L BUN 17.7 Creatinine 0.8 Est GFR (CKD-EPI)AfAm 118.20 Est GFR (CKD-EPI)NonAf 101.99 Random Glucose 90 Calcium 8.3 L Total Bilirubin 0.8 AST 26 ALT 35 Alkaline Phosphatase 71 Total Protein 6.0 L Albumin 3.3 L aaox3 ambulating no acute distress Assessment: 06/02/19 13:36 withdrawals Plan: continue detox increase fluids
[2019-06-02] MEDS ORDERED: ALBUTEROL SO4 8 GM HFA INHALER IH PRN (13:55)
[2019-06-02] MEDS: amLODIPine BESYLATE 5 MG TABLET (FP) PO SCH (14:15)
--- NOTE | 2019-06-02 17:28 | CONSULT ---
[facility] Psychiatric Consult - Data Date of interview: 06/02/19 Admission source: [facility] Identifying data: Readmission to [facility] (from community) for this 54 y/o male seeking detoxification treatment. NICANOR issues (alcohol, cocaine, nicotine). Patient is single, a father of one, domiciled, unemployed and deprived of financial assistance. Substance Abuse History: Discussed with the patient. Details in current [facility] report as follows : Smoking history: Former smoker. Have you smoked in the past 12 months: No. Hx Chewing Tobacco Use: No. Initiated information on smoking cessation: No. - Substance & Tx. History. Hx Alcohol Use: Yes. Hx Substance Use: Yes. Substance Use Type: Alcohol, Cocaine. Hx Substance Use Treatment: Yes ([facility] - Substances abused. Alcohol. Substance route: Oral. Frequency: Daily. Amount used: 1-2 liters of Vodka/day. Age of first use: 14. Date of last use: 06/01/19. Cocaine. Substance route: Inhalation. Frequency: 1-3 times last 30 days. Amount used: 1/2 GM. Age of first use: 20. Date of last use: 05/30/19 Medical History: Medical profile is remarkable for bronchial asthma, hypertension, chronic lumbar pain and a history of bilateral hip replacement. Psychiatric History: No history of psychiatric hospitalizations. Patient endorses MDD and Anxiety Disorder. He still seeing a psychiatrist at the [facility] in [facility] for medication management (lexapro + xanax). Patient admits to buying xanax in the streets (as well). Mr Taylor denies history of suicide attempts. In interview of 04/24/19, the patient changed the narrative about his brother's (recanted the suicide story). " My brother was a rehab spec working on the 82nd floor at the [employer] on 02/22/01. He in that tragedy." Patient denies history of suicide attempts. Physical/Sexual Abuse/Trauma History: Heavy trauma : lost a brother in the [facility] attack on 02/22/2001. Additional Comment: Urine drug screen results: RONNY-Cocaine. Noted. Mental Status Exam - Mental Status Exam Alert and Oriented to: Time, Place, Person Cognitive Function: Good Patient Appearance: Well Groomed Mood: Withdrawn, Anxious, Hopeful Affect: Appropriate, Mood Congruent, Normal Range Patient Behavior: Appropriate, Cooperative Speech Pattern: Clear Voice Loudness: Normal Thought Process: Intact, Goal Oriented Thought Disorder: Not Present Hallucinations: Denies Suicidal Ideation: Denies Homicidal Ideation: Denies Insight/Judgement: Fair Sleep: Poorly, Difficulty falling asleep Appetite: Good Muscle strength/Tone: Normal Gait/Station: Normal Psychiatric Findings - Problem List ([place] 1, 2,3) (1) Alcohol use disorder Current Visit: Yes Status: Chronic (2) Cocaine dependence Current Visit: Yes Status: Chronic Qualifiers: Substance use status: uncomplicated Qualified Code(s): F14.20 - Cocaine dependence, uncomplicated (3) Substance induced mood disorder Current Visit: Yes Status: Chronic (4) History of depression Current Visit: Yes Status: Chronic (5) Insomnia Current Visit: Yes Status: Chronic Qualifiers: Insomnia type: alcohol-induced Qualified Code(s): F10.982 - Alcohol use, unspecified with alcohol-induced sleep disorder - Initial Treatment Plan Initial Treatment Plan: Psychoeducation. Sleep hygiene. Detoxification. sresumed seroquel 100 mg po hs. Side effects/benefits discussed with patient. He agrees with plan of care. Verbal consent given to MD. Parker.
[2019-06-02] MEDS: METHOCARBAMOL 500 MG TABLET PO PRN (21:15)
[2019-06-02] MEDS: QUEtiapine FUMARATE 50 MG TABLET PO SCH (21:15)
[2019-06-02] MEDS: MELATONIN 5 MG TABLETS PO PRN (21:16)
[2019-06-02] MEDS: THIAMINE HCL 100 MG TABLET (FP) PO SCH (22:08)
[2019-06-03] MEDS: chlordiazePOXIDE HCL 25 MG CAPSULE PO SCH ×4 (06:28→22:03)
[2019-06-03] MEDS: hydrOXYzine PAMOATE 25 MG CAPSULE (FP) PO PRN ×3 (07:32→19:50)
[2019-06-03] MEDS: amLODIPine BESYLATE 5 MG TABLET (FP) PO SCH (10:53)
[2019-06-03] MEDS: ESCITALOPRAM OXALATE 10 MG TABLET (FP) PO SCH (10:53)
[2019-06-03] MEDS: PRENATAL VITAMINS W/ FOLIC ACID TABLET (FP) PO SCH (10:53)
[2019-06-03] MEDS: chlordiazePOXIDE HCL 25 MG CAPSULE PO PRN (12:59)
--- NOTE | 2019-06-03 13:51 | PN ---
S CIWA - CIWA Score Nausea/Vomitin-Mild Nausea/No Vomiting Muscle Tremors: 4-Moderate,w/Arms Extend Anxiety: 4-Mod. Anxious/Guarded Agitation: 3 Paroxysmal Sweats: 2 Orientation: 0-Oriented Tacttile Disturbances: 0-None Auditory Disturbances: 0-None Visual Disturbances: 0-None Headache: 1-Very Mild CIWA-Ar Total Score: 15 BHS Progress Note (SOAP) Subjective: pt here for detox with librium for alcohol use disorder O: Vital Signs - 24 hr 06/02/19 06/02/19 06/02/19 14:31 18:26 21:09 Temperature 97.7 F 97.5 F L 98.1 F Pulse Rate 90 78 72 Respiratory 18 16 18 Rate Blood Pressure 148/84 146/103 H 145/95 06/03/19 06/03/19 06/03/19 03:30 08:14 11:02 Temperature 97.2 F L 97.3 F L Pulse Rate 79 75 Respiratory 18 20 16 Rate Blood Pressure 115/94 150/83 Laboratory Tests 06/02/19 06/02/19 06/02/19 08:00 08:00 08:00 WBC 5.9 RBC 3.98 L Hgb 12.7 Hct 37.7 MCV 94.6 MCH 32.0 MCHC 33.8 RDW 13.8 Plt Count 207 MPV 8.1 Sodium 144 Potassium 3.8 Chloride 108 H Carbon Dioxide 29 Anion Gap 7 L BUN 17.7 Creatinine 0.8 Est GFR (CKD-EPI)AfAm 118.20 Est GFR (CKD-EPI)NonAf 101.99 Random Glucose 90 Calcium 8.3 L Total Bilirubin 0.8 AST 26 ALT 35 Alkaline Phosphatase 71 Total Protein 6.0 L Albumin 3.3 L RPR Titer Nonreactive high BP A/p: AUD- librium detox- pt requesting prn dosing of librium- done BP high-will increase dose of norvasc to 10mg/day
[2019-06-03] MEDS: THIAMINE HCL 100 MG TABLET (FP) PO SCH (22:03)
[2019-06-03] MEDS: QUEtiapine FUMARATE 50 MG TABLET PO SCH (22:03)
[2019-06-03] MEDS: MELATONIN 5 MG TABLETS PO PRN (22:04)
[2019-06-04] MEDS ORDERED: chlordiazePOXIDE HCL 10 MG CAPSULE PO PRN
[2019-06-04] MEDS: chlordiazePOXIDE HCL 10 MG CAPSULE PO SCH ×4 (06:26→22:25)
[2019-06-04] MEDS: hydrOXYzine PAMOATE 25 MG CAPSULE (FP) PO PRN ×3 (09:03→22:27)
[2019-06-04] MEDS: ESCITALOPRAM OXALATE 10 MG TABLET (FP) PO SCH (11:08)
[2019-06-04] MEDS: amLODIPine BESYLATE 5 MG TABLET (FP) PO SCH (11:08)
[2019-06-04] MEDS: PRENATAL VITAMINS W/ FOLIC ACID TABLET (FP) PO SCH (11:09)
[2019-06-04] MEDS: chlordiazePOXIDE HCL 25 MG CAPSULE PO PRN (13:43)
--- NOTE | 2019-06-04 14:10 | PN ---
[facility] CIWA - CIWA Score Nausea/Vomitin-No Nausea/No Vomiting Muscle Tremors: 2 Anxiety: 3 Agitation: 0-Normal Activity Paroxysmal Sweats: 3 Orientation: 0-Oriented Tacttile Disturbances: 0-None Auditory Disturbances: 0-None Visual Disturbances: 0-None Headache: 2-Mild CIWA-Ar Total Score: 10 S Progress Note (SOAP) Subjective: c/o anxiety, headache, and sweats. Objective: 06/04/19 14:09 Vital Signs 06/04/19 06/04/19 06:48 10:19 Temperature 98.1 F 97.5 F L Pulse Rate 55 L 72 Respiratory 19 16 Rate Blood Pressure 140/79 152/91 Laboratory Last Values WBC 5.9 K/mm3 (4.0-10.0) 06/02/19 08:00 RBC 3.98 M/mm3 (4.00-5.60) L 06/02/19 08:00 Hgb 12.7 GM/dL (11.7-16.9) 06/02/19 08:00 Hct 37.7 % (35.4-49) 06/02/19 08:00 MCV 94.6 fl (80-96) 06/02/19 08:00 MCH 32.0 pg (25.7-33.7) 06/02/19 08:00 MCHC 33.8 g/dl (32.0-35.9) 06/02/19 08:00 RDW 13.8 % (11.9-15.9) 06/02/19 08:00 Plt Count 207 K/MM3 (134-434) 06/02/19 08:00 MPV 8.1 fl (7.5-11.1) 06/02/19 08:00 Sodium 144 mmol/L (136-145) 06/02/19 08:00 Potassium 3.8 mmol/L (3.5-5.1) 06/02/19 08:00 Chloride 108 mmol/L (98-107) H 06/02/19 08:00 Carbon Dioxide 29 mmol/L (21-32) 06/02/19 08:00 Anion Gap 7 MMOL/L (8-16) L 06/02/19 08:00 BUN 17.7 mg/dL (7-18) 06/02/19 08:00 Creatinine 0.8 mg/dL (0.55-1.3) 06/02/19 08:00 Est GFR (CKD-EPI)AfAm 118.20 06/02/19 08:00 Est GFR (CKD-EPI)NonAf 101.99 06/02/19 08:00 Random Glucose 90 mg/dL (74-106) 06/02/19 08:00 Calcium 8.3 mg/dL (8.5-10.1) L 06/02/19 08:00 Total Bilirubin 0.8 mg/dL (0.2-1) 06/02/19 08:00 AST 26 U/L (15-37) 06/02/19 08:00 ALT 35 U/L (13-61) 06/02/19 08:00 Alkaline Phosphatase 71 U/L (45-117) 06/02/19 08:00 Total Protein 6.0 g/dl (6.4-8.2) L 06/02/19 08:00 Albumin 3.3 g/dl (3.4-5.0) L 06/02/19 08:00 RPR Titer Nonreactive (NONREACTIVE) 06/02/19 08:00 Labs noted. Assessment: 06/04/19 14:09 AOX3, in no acute respiratory distress. Full ROM, ambulating in the unit. Withdrawal symptoms Plan: continue detox.
[2019-06-04] MEDS: METHOCARBAMOL 500 MG TABLET PO PRN (17:34)
[2019-06-04] MEDS: QUEtiapine FUMARATE 50 MG TABLET PO SCH (22:25)
[2019-06-04] MEDS: THIAMINE HCL 100 MG TABLET (FP) PO SCH (22:25)
[2019-06-04] MEDS: MELATONIN 5 MG TABLETS PO PRN (22:27)
[2019-06-05] MEDS: chlordiazePOXIDE HCL 10 MG CAPSULE PO SCH ×2 (06:06→16:27)
[2019-06-05] MEDS: amLODIPine BESYLATE 5 MG TABLET (FP) PO SCH (10:26)
[2019-06-05] MEDS: PRENATAL VITAMINS W/ FOLIC ACID TABLET (FP) PO SCH (10:26)
[2019-06-05] MEDS: ESCITALOPRAM OXALATE 10 MG TABLET (FP) PO SCH (10:26)
--- NOTE | 2019-06-05 11:26 | PN ---
S CIWA - CIWA Score Nausea/Vomitin-No Nausea/No Vomiting Muscle Tremors: 2 Anxiety: 1-Mildly Anxious Agitation: 1-Slight > Activity Paroxysmal Sweats: No Perspiration Orientation: 0-Oriented Tacttile Disturbances: 0-None Auditory Disturbances: 0-None Visual Disturbances: 0-None Headache: 0-None Present CIWA-Ar Total Score: 4 BHS Progress Note (SOAP) Subjective: feeling better anxiety Objective: 06/05/19 11:25 Vital Signs Temperature 97.2 F L 06/05/19 09:30 Pulse Rate 73 06/05/19 09:30 Respiratory Rate 17 06/05/19 09:30 Blood Pressure 114/61 06/05/19 09:30 O2 Sat by Pulse Oximetry (%) aaox3 ambulating no acute distress Assessment: 06/05/19 11:25 mild withdrawals Plan: d/c in am
[2019-06-05] MEDS: hydrOXYzine PAMOATE 25 MG CAPSULE (FP) PO PRN ×2 (15:03→20:59)
[2019-06-05] MEDS: QUEtiapine FUMARATE 50 MG TABLET PO SCH (20:59)
[2019-06-05] MEDS: THIAMINE HCL 100 MG TABLET (FP) PO SCH (21:01)
[2019-06-05] MEDS: MELATONIN 5 MG TABLETS PO PRN (21:01)
[2019-06-06] MEDS ORDERED: chlordiazePOXIDE HCL 10 MG CAPSULE PO ONE (05:00)
--- NOTE | 2019-06-06 08:23 | DS ---
[facility] Detox Discharge Summary Admission Date: 06/01/19 Discharge Date: 06/06/19 - History Present History: Alcohol Dependence, Cocaine Dependence, Sedative Dependence - Physical Exam Results Vital Signs: Vital Signs Temperature 97 F L 06/06/19 06:29 Pulse Rate 65 06/06/19 06:29 Respiratory Rate 18 06/06/19 06:29 Blood Pressure 105/62 06/06/19 06:29 O2 Sat by Pulse Oximetry (%) Pertinent Admission Physical Exam Findings: Vital Signs Temperature 97 F L 06/06/19 06:29 Pulse Rate 65 06/06/19 06:29 Respiratory Rate 18 06/06/19 06:29 Blood Pressure 105/62 06/06/19 06:29 O2 Sat by Pulse Oximetry (%) Laboratory Tests 06/02/19 06/02/19 06/02/19 08:00 08:00 08:00 WBC 5.9 RBC 3.98 L Hgb 12.7 Hct 37.7 MCV 94.6 MCH 32.0 MCHC 33.8 RDW 13.8 Plt Count 207 MPV 8.1 Sodium 144 Potassium 3.8 Chloride 108 H Carbon Dioxide 29 Anion Gap 7 L BUN 17.7 Creatinine 0.8 Est GFR (CKD-EPI)AfAm 118.20 Est GFR (CKD-EPI)NonAf 101.99 Random Glucose 90 Calcium 8.3 L Total Bilirubin 0.8 AST 26 ALT 35 Alkaline Phosphatase 71 Total Protein 6.0 L Albumin 3.3 L RPR Titer Nonreactive aaox3 ambulating no acute distress - Treatment Hospital Course: Detox Protocol Followed, Detoxed Safely, Responded well, Discharged Condition Good, Rehab Referral Accepted Patient has Accepted a Rehab Referral to: [facility] - Medication Discharge Medications: Ambulatory Orders Albuterol Sulfate Inhaler - [Ventolin HFA Inhaler -] 1 - 2 inh PO Q4H PRN Amlodipine Besylate 5 mg PO DAILY #30 tablet 05/04/19 Escitalopram Oxalate [Lexapro -] 10 mg PO DAILY 06/01/19 hydrOXYzine PAMOATE [Vistaril -] 50 mg PO ASDIR 06/01/19 - Diagnosis (1) Alcohol dependence with uncomplicated withdrawal Current Visit: Yes Status: Chronic (2) Alcohol use disorder Current Visit: Yes Status: Chronic (3) Anxiety and depression Current Visit: Yes Status: Chronic (4) Cocaine dependence Current Visit: Yes Status: Chronic Qualifiers: Substance use status: uncomplicated Qualified Code(s): F14.20 - Cocaine dependence, uncomplicated (5) History of depression Current Visit: Yes Status: Chronic (6) Hypertension Current Visit: Yes Status: Chronic Qualifiers: Hypertension type: unspecified Qualified Code(s): I10 - Essential (primary ) hypertension (7) Insomnia Current Visit: Yes Status: Chronic Qualifiers: Insomnia type: alcohol-induced Qualified Code(s): F10.982 - Alcohol use, unspecified with alcohol-induced sleep disorder (8) Substance induced mood disorder Current Visit: Yes Status: Chronic (9) Syncope Current Visit: No Status: Acute Qualifiers: Syncope type: unspecified Qualified Code(s): R55 - Syncope and collapse (10) Chronic bronchitis Current Visit: No Status: Chronic Qualifiers: Chronic bronchitis type: unspecified Qualified Code(s): J42 - Unspecified chronic bronchitis (11) History of bilateral hip replacements Current Visit: No Status: Chronic (12) History of bronchitis Current Visit: No Status: Chronic (13) History of hip replacement Current Visit: No Status: Chronic Qualifiers: Laterality: bilateral Qualified Code(s): Z96.643 - Presence of artificial hip joint, bilateral (14) Perforated nasal septum Current Visit: No Status: Chronic (15) Psoriasiform eczema Current Visit: No Status: Chronic (16) Sedative, hypnotic or anxiolytic dependence with withdrawal, uncomplicated Current Visit: Yes Status: Chronic - AMA Did Patient Leave Against Medical Advice: No
[2019-06-06] MEDS: hydrOXYzine PAMOATE 25 MG CAPSULE (FP) PO PRN (08:49)
[2019-06-06 09:33] VITALS: BP 157/84; PULSE 85; TEMP 97.7
[2019-06-06] MEDS: PRENATAL VITAMINS W/ FOLIC ACID TABLET (FP) PO SCH (11:22)
[2019-06-06] MEDS: amLODIPine BESYLATE 5 MG TABLET (FP) PO SCH (11:22)
[2019-06-06] MEDS: ESCITALOPRAM OXALATE 10 MG TABLET (FP) PO SCH (11:22)
== END 2019-06-06 11:39 | disposition other institution (70) | DRG 774 ==
LOC: YASAS 20:48 → Y6N 22:43
PROVIDERS: ADMIT Allergy & Immunology; ATTEND Allergy & Immunology
PROC: HZ2ZZZZ Detoxification Services for Substance Abuse Treatment (ICD-10-PCS; principal; 2019-06-01)
DX: F10.230 Alcohol dependence with withdrawal, uncomplicated (principal); F13.230 Sedative, hypnotic or anxiolytic dependence with withdrawal, uncomplicated; F14.20 Cocaine dependence, uncomplicated; F41.9 Anxiety disorder, unspecified; F32.9 Major depressive disorder, single episode, unspecified; F19.24 Other psychoactive substance dependence with psychoactive substance-induced mood disorder; F19.282 Other psychoactive substance dependence with psychoactive substance-induced sleep disorder; I10 Essential (primary) hypertension; J45.20 Mild intermittent asthma, uncomplicated; L30.8 Other specified dermatitis; R63.8 Other symptoms and signs concerning food and fluid intake; Z96.643 Presence of artificial hip joint, bilateral; Z88.5 Allergy status to narcotic agent; Z87.891 Personal history of nicotine dependence
CPT/HCPCS: 36415; 80053; 85027; 86593

== ENCOUNTER 2019-06-06 11:55 | Inpatient (IN) | payer OTHER ==
[2019-06-06] MEDS ORDERED: MENTHOL/PHENOL 1 EACH UD MM PRN (12:48)
[2019-06-06] MEDS ORDERED: LOPERAMIDE HCL 2 MG CAPSULE PO PRN (12:48)
[2019-06-06] MEDS ORDERED: P-EPHED 60MG/TRIPROLIDI 2.5MG TABLET PO PRN (12:48)
[2019-06-06] MEDS ORDERED: ACETAMINOPHEN 325 MG TABLET (FP) PO PRN (12:48)
[2019-06-06] MEDS ORDERED: MAGNESIUM HYDROX 2400MG/30ML ORAL SUSPENSION 30 ML CUP PO PRN (12:48)
[2019-06-06] MEDS ORDERED: IBUPROFEN 400 MG TABLET (FP) PO PRN (12:48)
[2019-06-06] MEDS ORDERED: MAGNESIUM CITRATE 300 ML BOTTLE PO PRN (12:48)
[2019-06-06] MEDS ORDERED: MAG HYDROX/AL HYDROX/SIMETH 30 ML UNIT-DOSE CUP PO PRN (12:48)
[2019-06-06] MEDS ORDERED: guaiFENesin 200 MG/10 ML 10 ML UNIT-DOSE CUPS PO PRN (12:48)
[2019-06-06] MEDS ORDERED: ALBUTEROL SO4 8 GM HFA INHALER IH PRN (12:51)
--- NOTE | 2019-06-06 12:59 | PN ---
[facility] Progress Note Note: Patient admitted to [address] [place] [address], previous 4 admissions reviewed, patient did not encounter any safety issues. Labs, home medications, problem list reviewed. Admission orders for patient initiated. General: no apparent distress HEENTM: normocephalic MSK: full weight bearing Neuro: CN 2-12 intact.
[2019-06-06] MEDS ORDERED: IBUPROFEN 600 MG TABLET (FP) PO PRN ×2 (13:07→13:08)
[2019-06-06] MEDS: hydrOXYzine PAMOATE 50 MG CAPSULE (FP) PO PRN ×2 (13:19→21:19)
[2019-06-06] MEDS: THIAMINE HCL 100 MG TABLET (FP) PO SCH (21:19)
[2019-06-06] MEDS: QUEtiapine FUMARATE 100 MG TABLET (FP) PO SCH (21:19)
[2019-06-06] MEDS: MELATONIN 5 MG TABLETS PO PRN (21:20)
[2019-06-07] MEDS: hydrOXYzine PAMOATE 50 MG CAPSULE (FP) PO PRN ×3 (06:32→21:20)
[2019-06-07] MEDS: PRENATAL VITAMINS W/ FOLIC ACID TABLET (FP) PO SCH (10:02)
[2019-06-07] MEDS: amLODIPine BESYLATE 5 MG TABLET (FP) PO SCH (10:02)
[2019-06-07] MEDS: QUEtiapine FUMARATE 100 MG TABLET (FP) PO SCH (21:20)
[2019-06-07] MEDS: THIAMINE HCL 100 MG TABLET (FP) PO SCH (21:20)
[2019-06-07] MEDS: MELATONIN 5 MG TABLETS PO PRN (21:21)
[2019-06-08] MEDS: hydrOXYzine PAMOATE 50 MG CAPSULE (FP) PO PRN ×3 (07:18→21:16)
[2019-06-08] MEDS: amLODIPine BESYLATE 5 MG TABLET (FP) PO SCH (09:20)
[2019-06-08] MEDS: PRENATAL VITAMINS W/ FOLIC ACID TABLET (FP) PO SCH (09:20)
--- NOTE | 2019-06-08 11:15 | CONSULT ---
[facility] Psychiatric Consult - Data Date of interview: 06/08/19 Admission source: [facility] Identifying data: Patient is a 54 year old single [place] male, father of one, unemployed, domiciled, and is not currently receiving financial assistance. This is one of multiple admissions for patient in rehab. Patient admitted to for alcohol dependence. Substance Abuse History: Smoking Cessation. Smoking history: Former smoker. Have you smoked in the past 12 months: No. Hx Chewing Tobacco Use: No. Initiated information on smoking cessation: No. - Substance & Tx. History. Hx Alcohol Use: Yes. Hx Substance Use: Yes. Substance Use Type: Alcohol, Cocaine. Hx Substance Use Treatment: Yes ([facility]). - Substances abused. Alcohol. Substance route: Oral. Frequency: Daily. Amount used: 1-2 liters of Vodka/day. Age of first use: 14. Date of last use: 06/01/19. Cocaine. Substance route: Inhalation. Frequency: 1-3 times last 30 days. Amount used: 1 /2 GM. Age of first use: 20. Date of last use: 05/30/19 Medical History: Medical profile is remarkable for bronchial asthma, hypertension, chronic lumbar pain and a history of bilateral hip replacement. Psychiatric History: Patient's first psychiatric contact was after 02/22 (lost a brother in the [employer] attack on 02/22/2001). States he assisted in the clean up of debris from the results of 02/22. Mr. Taylor saw a psychiatrist who diagnosed him with anxiety disorder + PTSD and prescribed him Klonopin. Patient is currently seeing a psychiatrist at the [facility] in [place], [place] and is prescribed lexapro 10mg + Seroquel 100mg. States he was also prescribed xanac but is no longer on that medication. Patient denies history of psychiatric hospitalization and suicide attempt. At present patient reports stable mood. Physical/Sexual Abuse/Trauma History: Heavy trauma : lost a brother in the [employer] attack on 02/22/2001 Mental Status Exam - Mental Status Exam Alert and Oriented to: Time, Place, Person Cognitive Function: Good Patient Appearance: Well Groomed Mood: Euthymic Affect: Appropriate Patient Behavior: Appropriate, Cooperative Speech Pattern: Clear, Appropriate Voice Loudness: Normal Thought Process: Goal Oriented Thought Disorder: Not Present Hallucinations: Denies Suicidal Ideation: Denies Homicidal Ideation: Denies Insight/Judgement: Poor Sleep: Fair Appetite: Fair Muscle strength/Tone: Normal Gait/Station: Normal Psychiatric Findings - Problem List ([place] 1, 2,3) (1) Alcohol use disorder Current Visit: Yes Status: Chronic (2) Cocaine dependence Current Visit: Yes Status: Chronic Qualifiers: Substance use status: uncomplicated Qualified Code(s): F14.20 - Cocaine dependence, uncomplicated (3) Anxiety disorder Current Visit: Yes Status: Acute (4) PTSD (post-traumatic stress disorder) Current Visit: Yes Status: Chronic - Initial Treatment Plan Initial Treatment Plan: Psychoeducation provided. Detoxification in progress. Will continue Seroquel 100mg HS. Will order Lexapro 10mg daily. Benefits and side effects discussed. Verbal consent given.
[2019-06-08] MEDS: MINERAL OIL/PETROLAT/WATER TOPICAL CREAM 113 GM JAR TP PRN (17:32)
[2019-06-08] MEDS: THIAMINE HCL 100 MG TABLET (FP) PO SCH (21:15)
[2019-06-08] MEDS: QUEtiapine FUMARATE 100 MG TABLET (FP) PO SCH (21:15)
[2019-06-08] MEDS: MELATONIN 5 MG TABLETS PO PRN (21:16)
[2019-06-09] MEDS: hydrOXYzine PAMOATE 50 MG CAPSULE (FP) PO PRN ×3 (07:22→21:25)
[2019-06-09] MEDS: amLODIPine BESYLATE 5 MG TABLET (FP) PO SCH (10:20)
[2019-06-09] MEDS: PRENATAL VITAMINS W/ FOLIC ACID TABLET (FP) PO SCH (10:20)
[2019-06-09] MEDS: ESCITALOPRAM OXALATE 10 MG TABLET (FP) PO SCH (10:20)
[2019-06-09] MEDS: MELATONIN 5 MG TABLETS PO PRN (21:26)
[2019-06-09] MEDS: THIAMINE HCL 100 MG TABLET (FP) PO SCH (21:26)
[2019-06-09] MEDS: QUEtiapine FUMARATE 100 MG TABLET (FP) PO SCH (21:26)
[2019-06-10] MEDS: hydrOXYzine PAMOATE 50 MG CAPSULE (FP) PO PRN ×3 (07:53→21:20)
[2019-06-10] MEDS: amLODIPine BESYLATE 5 MG TABLET (FP) PO SCH (10:17)
[2019-06-10] MEDS: PRENATAL VITAMINS W/ FOLIC ACID TABLET (FP) PO SCH (10:17)
[2019-06-10] MEDS: MINERAL OIL/PETROLAT/WATER TOPICAL CREAM 113 GM JAR TP PRN (10:17)
[2019-06-10] MEDS: ESCITALOPRAM OXALATE 10 MG TABLET (FP) PO SCH (10:17)
[2019-06-10] MEDS: MELATONIN 5 MG TABLETS PO PRN (21:20)
[2019-06-10] MEDS: QUEtiapine FUMARATE 100 MG TABLET (FP) PO SCH (21:20)
[2019-06-10] MEDS: THIAMINE HCL 100 MG TABLET (FP) PO SCH (21:20)
[2019-06-11] MEDS: PRENATAL VITAMINS W/ FOLIC ACID TABLET (FP) PO SCH (09:55)
[2019-06-11] MEDS: ESCITALOPRAM OXALATE 10 MG TABLET (FP) PO SCH (09:55)
[2019-06-11] MEDS: amLODIPine BESYLATE 5 MG TABLET (FP) PO SCH (09:55)
[2019-06-11] MEDS: MINERAL OIL/PETROLAT/WATER TOPICAL CREAM 113 GM JAR TP PRN (09:56)
[2019-06-11] MEDS: hydrOXYzine PAMOATE 50 MG CAPSULE (FP) PO PRN ×3 (09:56→21:22)
[2019-06-11] MEDS: QUEtiapine FUMARATE 100 MG TABLET (FP) PO SCH (21:22)
[2019-06-11] MEDS: MELATONIN 5 MG TABLETS PO PRN (21:22)
[2019-06-11] MEDS: THIAMINE HCL 100 MG TABLET (FP) PO SCH (21:22)
[2019-06-12] MEDS: amLODIPine BESYLATE 5 MG TABLET (FP) PO SCH (10:09)
[2019-06-12] MEDS: PRENATAL VITAMINS W/ FOLIC ACID TABLET (FP) PO SCH (10:09)
[2019-06-12] MEDS: ESCITALOPRAM OXALATE 10 MG TABLET (FP) PO SCH (10:09)
[2019-06-12] MEDS: hydrOXYzine PAMOATE 50 MG CAPSULE (FP) PO PRN ×2 (10:09→21:19)
[2019-06-12] MEDS: MINERAL OIL/PETROLAT/WATER TOPICAL CREAM 113 GM JAR TP PRN (10:10)
--- NOTE | 2019-06-12 13:57 | PN ---
[facility] Progress Note Note: Patient is scheduled for discharge tomorrow. Scripts for 30 days supply(Lexapro 10 mg/day, Seroquel 100 mg/hs) will be electronically transmitted to [facility] pharmacy at [address] [place] [id number]
[2019-06-12] MEDS: QUEtiapine FUMARATE 100 MG TABLET (FP) PO SCH (21:19)
[2019-06-12] MEDS: THIAMINE HCL 100 MG TABLET (FP) PO SCH (21:19)
[2019-06-12] MEDS: MELATONIN 5 MG TABLETS PO PRN (21:19)
[2019-06-13 06:55] VITALS: BP 123/80; PULSE 66; TEMP 97.3
[2019-06-13] MEDS: PRENATAL VITAMINS W/ FOLIC ACID TABLET (FP) PO SCH (09:10)
[2019-06-13] MEDS: amLODIPine BESYLATE 5 MG TABLET (FP) PO SCH (09:10)
[2019-06-13] MEDS: ESCITALOPRAM OXALATE 10 MG TABLET (FP) PO SCH (09:10)
[2019-06-13] MEDS: hydrOXYzine PAMOATE 50 MG CAPSULE (FP) PO PRN (09:10)
--- NOTE | 2019-06-13 09:14 | DS ---
[facility] Rehab Discharge Summary - [facility] Rehab Discharge Summary Admission Date: 06/06/19 Discharge Date: 06/13/19 - History Present History: Alcohol dependence, Cocaine dependence Additional Comments: Pt is a 54 y/o male with a hx of NICANOR admitted to rehab and discharging today. Pt reports he has a primary care provider, Dr. Henok Jiang @ [address] [place] [address] and psychiatrist, Dr. Henok Bernal @ [facility] , [address] [place] [address]. Pertinent Past History: Hx HTN Eczema Perforated nasal septum Hip Replacement,bilateral Hx Depression/Anxiety - Discharge Physical Exam Vital Signs: Vital Signs Temperature 97.3 F L 06/13/19 06:55 Pulse Rate 66 06/13/19 06:55 Respiratory Rate 18 06/13/19 06:55 Blood Pressure 123/80 06/13/19 06:55 O2 Sat by Pulse Oximetry (%) Alert o x 3,denies s/h/i nad oob ambulating with steady gait cardiac:s1 s2,rrr lungs:cta,edmar. abdomen:soft,+bs,nt,nd extremities/skin:no edema,skin intact Pertinent Admission Physical Exam Findings: Status unchanged from admission - Treatment Discharge Condition: Discharge condition good - Medication Discharge Medications: Ambulatory Orders Albuterol Sulfate Inhaler - [Ventolin HFA Inhaler -] 1 - 2 inh PO Q4H PRN hydrOXYzine PAMOATE [Vistaril -] 50 mg PO ASDIR 06/01/19 Amlodipine Besylate 5 mg PO DAILY #14 tablet 06/12/19 Escitalopram Oxalate [Lexapro -] 10 mg PO DAILY #30 tablet 06/12/19 Quetiapine Fumarate [Seroquel -] 100 mg PO HS #30 tablet 06/12/19 - Medication-Assisted Treatment (MAT) Medication-Assisted Treatment (MAT): No - Discharge Instructions Diet, activity, other medical instructions: Diet:IRAJ Activity: oob ad jamey Other medical instructions:follow up with primary care provider within 1 week after discharge. follow up with CD aftercare recommendation as scheduled. - Follow-up Referral Minutes to complete discharge: 20 - AMA Did Patient Leave Against Medical Advice: No Additional Comments: Courtesy Rx for Norvasc 5 mg po daily electronically sent to pt's [facility] pharmacy
== END 2019-06-13 11:00 | disposition home or self-care (01) | DRG 772 ==
LOC: YASAS 11:55 → Y5N 11:56
PROVIDERS: ADMIT Neuromusculoskeletal Medicine & OMM; ATTEND Neuromusculoskeletal Medicine & OMM
PROC: HZ42ZZZ Group Counseling for Substance Abuse Treatment, Cognitive-Behavioral (ICD-10-PCS; principal; 2019-06-06)
DX: F10.20 Alcohol dependence, uncomplicated (principal); F14.20 Cocaine dependence, uncomplicated; F41.9 Anxiety disorder, unspecified; F43.10 Post-traumatic stress disorder, unspecified; I10 Essential (primary) hypertension; L30.9 Dermatitis, unspecified; J45.909 Unspecified asthma, uncomplicated; Z96.643 Presence of artificial hip joint, bilateral

== ENCOUNTER 2020-01-16 11:08 | Inpatient (IN) | payer OTHER ==
--- NOTE | 2020-01-16 11:23 | BHS.RME ---
Substance Use & Tx History - Substance Use History Alcohol Substance amount: 30-40 beers 12 oz Frequency of use: Daily Substance route: Oral Date of Last Use: 01/15/20 Cocaine- Powder Substance amount: 1 line Frequency of use: Less than 3 times per week Substance route: Inhalation (ex: sniffing or snorting) Date of Last Use: 01/15/20 Physical/Psych/Mental Status - Behavior General Behavior: Increased activity (restlessness, agitation) Eye Contact: Normal - Cooperativeness Cooperativeness: Cooperative - Thinking Thought Processes: Tight, Logical, Goal Directed - Physical Health Problems Is patient presently having any pain?: No Does patient presently have any injuries (include location): No Does patient currently have a fever: No Is patient : No CIWA Nausea/Vomitin-Mild Nausea/No Vomiting Muscle Tremors: 4-Moderate,w/Arms Extend Anxiety: 3 Agitation: 3 Paroxysmal Sweats: 5 Orientation: 0-Oriented Tacttile Disturbances: 0-None Auditory Disturbances: 0-None Visual Disturbances: 0-None Headache: 0-None Present CIWA-Ar Total Score: 16
--- NOTE | 2020-01-16 11:44 | HP ---
CIWA Score Nausea/Vomitin-Mild Nausea/No Vomiting Muscle Tremors: 4-Moderate,w/Arms Extend Anxiety: 3 Agitation: 3 Paroxysmal Sweats: 5 Orientation: 0-Oriented Tacttile Disturbances: 0-None Auditory Disturbances: 0-None Visual Disturbances: 0-None Headache: 0-None Present CIWA-Ar Total Score: 16 - Admission Criteria OASAS Guidelines: Admission for Medically Managed Detox: Requires at least one of the followin. CIWA greater than 12 2. Seizures within the past 24 hours 3. Delirium tremens within the past 24 hours 4. Hallucinations within the past 24 hours 5. Acute intervention needed for co occurring medical disorder 6. Acute intervention needed for co occurring psychiatric disorder 7. Severe withdrawal that cannot be handled at a lower level of care (continued vomiting, continued diarrhea, abnormal vital signs) requiring intravenous medication and/or fluids 8. Admitting History and Physical - Admission Chief Complaint: Mr. Abad presents to [facility] stating "I didn't think I'd make it back. Either I surrender or I ". He is requesting detox admission for alcohol use disorder. History of Present Illness: Mr. Abad presents to [facility] stating "I didn't think I'd make it back. Either I surrender or I ". He is requesting detox admission for alcohol use disorder. His is a 54 yo man with a hx of alcohol use. He was admitted here twice in November for Detox. He relapsed after he left detox. PMH: HTN PSH: edmar. hip replacement Psych: anxiety, depression: hydroxyzine, Serouquel, Lexpro SoC: homeless, threw him out Legal none except for DUI - Substance Use History Alcohol Substance amount: 30-40 beers 12 oz Frequency of use: Daily Substance route: Oral Date of Last Use: 01/15/20 First use age 13 y. 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 Cocaine- Powder Substance amount: 1 line Frequency of use: Less than 3 times per week Substance route: Inhalation (ex: sniffing or snorting) Date of Last Use: 01/15/20 First use age 19 y Nicotine: former, stopped 9 years ago Benzo: pt states he has had rx from [facility] ED Patient Name: Dereje bAad Date: 1965 Address: [facility] [place] [address] Sex: Male Rx Written Rx Dispensed Drug Quantity Days Supply Prescriber Name 04/11/2019 04/11/2019 alprazolam 0.5 mg tablet 60 30 Henok Sheets MD 02/28/2019 02/28/2019 alprazolam 0.5 mg tablet 60 30 Henok Sheets MD History Source: Patient Limitations to Obtaining History: No Limitations - Past Medical History Cardiovascular: Yes: HTN Pulmonary: Yes: Asthma Psych: Yes: Anxiety, Depression, Other (insomnia) - Past Surgical History Past Surgical History: Yes: Joint Replacement (bilaterl hip replacement in 2008,2016) - Smoking History Smoking history: Former smoker Have you smoked in the past 12 months: No - Alcohol/Substance Use Hx Alcohol Use: Yes History of Substance Use: reports: Cocaine - Social History History of Recent Travel: No Admission ROS [facility] Allergies/Adverse Reactions: Allergies Allergy/AdvReac Type Severity Reaction Status Date / Time codeine Allergy Intermediate Elevated Verified 11/27/19 18:02 Blood Pressure - Ebola screening Have you traveled outside of the country in the last 21 days: No Have you been sick,other than usual withdrawal symptoms: No Do you have a fever: No - Review of Systems Constitutional: Unintentional Wgt. Loss (lost 25 lbs in 3 mos) EENT: reports: Hearing Loss (left ear x one year, has not been medically evaluated) Respiratory: reports: No Symptoms reported Cardiac: reports: No Symptoms Reported GI: reports: Diarrhea, Nausea : reports: Other (dark colored urine) Musculoskeletal: denies: Back Pain, Joint Pain Integumentary: reports: No Symptoms Reported Neuro: denies: Headache, Numbness Endocrine: reports: No Symptoms Reported Hematology: denies: Blood Clots, Easy Bleeding, Easy Bruising Psychiatric: reports: Anxious Patient History - Patient Medical History Hx Anemia: No Hx Asthma: Yes Hx Chronic Obstructive Pulmonary Disease (COPD): No Hx Cancer: No Hx Cardiac Disorders: No Hx Congestive Heart Failure: No Hx Hypertension: Yes (on med) Hx Hypercholesterolemia: No Hx Pacemaker: No HX Cerebrovascular Accident: No Hx Seizures: No Hx Dementia: No Hx Diabetes: No Hx Gastrointestinal Disorders: No Hx Liver Disease: No Hx Genitourinary Disorders: No Hx Sexually Transmitted Disorders: No Hx Renal Disease (ESRD): No Hx Thyroid Disease: No Hx Human Immunodeficiency Virus (HIV): No (last 10/2019 negative) Hx Hepatitis C: No Hx Depression: Yes (anxiety) Hx Suicide Attempt: No Hx Bipolar Disorder: No Hx Schizophrenia: No - Patient Surgical History Past Surgical History: Yes Hx Neurologic Surgery: No Hx Cataract Extraction: No Hx Cardiac Surgery: No Hx Lung Surgery: No Hx Breast Surgery: No Hx Breast Biopsy: No Hx Abdominal Surgery: No Hx Appendectomy: No Hx Cholecystectomy: No Hx Genitourinary Surgery: No Hx Orthopedic Surgery: Yes (B/L HIP REPLACEMENTS-) Anesthesia Reaction: No - PPD History Date: 11/20/19 Results: 0 - Smoking Cessation Smoking history: Former smoker Have you smoked in the past 12 months: No Hx Chewing Tobacco Use: No Initiated information on smoking cessation: No Admission Physical Exam [facility] - Physical General Appearance: Yes: No Apparent Distress, Nourished, Anxious HEENTM: Yes: EOMI, Hearing grossly Normal, Normocephalic, Normal Voice Respiratory: Yes: Lungs Clear, Normal Breath Sounds, No Respiratory Distress, No Accessory Muscle Use Neck: Yes: Within Normal Limits, Supple Breast: Yes: Breast Exam Deferred Cardiology: Yes: Regular Rhythm, Tachycardia Abdominal: Yes: Normal Bowel Sounds, Non Tender, Flat, Soft Genitourinary: Yes: Other (deferred) Back: Yes: Normal Inspection Musculoskeletal: Yes: Gait Steady Extremities: Yes: Normal Inspection, Non-Tender Integumentary: Yes: Normal Color, Dry, Warm - Diagnostic (1) Alcohol dependence with uncomplicated withdrawal Current Visit: Yes Status: Acute Comment: w/ SANDRO down from 0.184 to 0.121 (2) Cocaine dependence Current Visit: Yes Status: Acute Qualifiers: Substance use status: uncomplicated Qualified Code(s): F14.20 - Cocaine dependence, uncomplicated (3) Hypertension Current Visit: Yes Status: Chronic Qualifiers: Hypertension type: unspecified Qualified Code(s): I10 - Essential (primary) hypertension Comment: states only goes high when he drinks (4) MDD (major depressive disorder) Current Visit: Yes Status: Chronic Cleared for Admission S - Detox or Rehab S Level of Care: Medically Managed Detox Regimen/Protocol: Librium Breathalyzer - Breathalyzer Breathalyzer: 0 Urine Drug Screen - Test Device Lot number: [id number] Expiration date: 01/16/20 - Control Is test valid?: Yes - Results Drug screen NEGATIVE: No Urine drug screen results: RONNY-Cocaine, BZO-Benzodiazepines Inpatient Rehab Admission - Rehab Decision to Admit Inpatient rehab admission?: No
[2020-01-16] MEDS ORDERED: ALBUTEROL SO4 HFA INHALER IH PRN (12:00)
[2020-01-16] MEDS ORDERED: ACETAMINOPHEN 325 MG TABLET (FP) PO PRN ×2 (12:01)
[2020-01-16] MEDS ORDERED: chlordiazePOXIDE HCL 25 MG CAPSULE PO PRN (12:01)
[2020-01-16] MEDS ORDERED: BISMUTH SUBSALICYLATE 262 MG/15 ML BTL PO PRN (12:01)
[2020-01-16] MEDS ORDERED: MAGNESIUM HYDROX 2400MG/30ML ORAL SUSPENSION 30 ML CUP PO PRN (12:01)
[2020-01-16] MEDS ORDERED: MAG HYDROX/AL HYDROX/SIMETH 30 ML UNIT-DOSE CUP PO PRN (12:01)
[2020-01-16] MEDS ORDERED: MAGNESIUM CITRATE 300 ML BOTTLE PO PRN (12:01)
[2020-01-16] MEDS ORDERED: MENTHOL/PHENOL 1 EACH UD MM PRN (12:01)
[2020-01-16] MEDS ORDERED: ONDANSETRON *ODT* 4 MG TABLET SL PRN (12:01)
[2020-01-16 12:24] VITALS: BMI 26.8
[2020-01-16] MEDS ORDERED: hydrOXYzine PAMOATE 25 MG CAPSULE (FP) PO SCH (14:00)
[2020-01-16] MEDS: amLODIPine BESYLATE 5 MG TABLET (FP) PO SCH (14:59)
[2020-01-16 17:08] LABS: HEMATOCRIT 40.5 % (35.4-49); HEMOGLOBIN 13.6 GM/dL (11.7-16.9); MCH 32.7 pg (25.7-33.7); MCHC 33.5 g/dl (32.0-35.9); MEAN CELL VOLUME 97.6 fl (80-96); MEAN PLT VOLUME 8.3 fl (7.5-11.1); PLATELET COUNT 266 K/MM3 (134-434); RBC 4.15 M/mm3 (4.00-5.60); RDW 16.2 % (11.9-15.9); WHITE BLOOD COUNT 5.5 K/mm3 (4.0-10.0)
[2020-01-16] MEDS: chlordiazePOXIDE HCL 25 MG CAPSULE PO SCH ×2 (17:09→22:18)
[2020-01-16 17:19] LABS: ALBUMIN 3.1 g/dl (3.4-5.0); BILIRUBIN,TOTAL 1.2 mg/dL (0.2-1); BLOOD UREA NITROGEN 13.3 mg/dL (7-18); CALCIUM 8.8 mg/dL (8.5-10.1); CREATININE 1.2 mg/dL (0.55-1.3); POTASSIUM 3.5 mmol/L (3.5-5.1); TOT PROT 6.8 g/dl (6.4-8.2)
[2020-01-16] MEDS: THIAMINE HCL 100 MG TABLET (FP) PO SCH (22:19)
[2020-01-16] MEDS: MELATONIN 5 MG TABLETS PO SCH (22:19)
[2020-01-16] MEDS: hydrOXYzine PAMOATE 25 MG CAPSULE (FP) PO PRN (22:20)
[2020-01-17] MEDS: chlordiazePOXIDE HCL 25 MG CAPSULE PO SCH ×4 (05:24→22:11)
[2020-01-17] MEDS: IBUPROFEN 400 MG TABLET (FP) PO PRN ×2 (09:23→17:25)
[2020-01-17] MEDS: METHOCARBAMOL 500 MG TABLET PO PRN ×2 (09:23→17:25)
[2020-01-17] MEDS: hydrOXYzine PAMOATE 25 MG CAPSULE (FP) PO PRN ×2 (09:26→22:12)
[2020-01-17] MEDS: amLODIPine BESYLATE 5 MG TABLET (FP) PO SCH (11:14)
[2020-01-17] MEDS: PRENATAL VITAMINS W/ FOLIC ACID TABLET (FP) PO SCH (11:14)
--- NOTE | 2020-01-17 11:30 | PN ---
S CIWA - CIWA Score Nausea/Vomitin Muscle Tremors: 2 Anxiety: 2 Agitation: 2 Paroxysmal Sweats: No Perspiration Orientation: 0-Oriented Tacttile Disturbances: 1-Very Mild Itch/Numbness Auditory Disturbances: 0-None Visual Disturbances: 0-None Headache: 1-Very Mild CIWA-Ar Total Score: 10 S Progress Note (SOAP) Subjective: alert,irritable,anxious,interrupted sleep,pain in the both hips,aching pain Objective: 01/17/20 11:28 Vital Signs Temperature 97.1 F L 01/17/20 05:20 Pulse Rate 71 01/17/20 05:20 Respiratory Rate 20 01/17/20 05:20 Blood Pressure 129/82 01/17/20 05:20 O2 Sat by Pulse Oximetry (%) 100 01/17/20 05:20 01/17/20 11:28 Laboratory Last Values WBC 5.5 K/mm3 (4.0-10.0) 01/16/20 13:20 RBC 4.15 M/mm3 (4.00-5.60) 01/16/20 13:20 Hgb 13.6 GM/dL (11.7-16.9) 01/16/20 13:20 Hct 40.5 % (35.4-49) 01/16/20 13:20 MCV 97.6 fl (80-96) H 01/16/20 13:20 MCH 32.7 pg (25.7-33.7) 01/16/20 13:20 MCHC 33.5 g/dl (32.0-35.9) 01/16/20 13:20 RDW 16.2 % (11.9-15.9) H 01/16/20 13:20 Plt Count 266 K/MM3 (134-434) D 01/16/20 13:20 MPV 8.3 fl (7.5-11.1) 01/16/20 13:20 Sodium 139 mmol/L (136-145) 01/16/20 13:20 Potassium 3.5 mmol/L (3.5-5.1) 01/16/20 13:20 Chloride 103 mmol/L (98-107) 01/16/20 13:20 Carbon Dioxide 27 mmol/L (21-32) 01/16/20 13:20 Anion Gap 9 MMOL/L (8-16) 01/16/20 13:20 BUN 13.3 mg/dL (7-18) 01/16/20 13:20 Creatinine 1.2 mg/dL (0.55-1.3) 01/16/20 13:20 Est GFR (CKD-EPI)AfAm 79.53 01/16/20 13:20 Est GFR (CKD-EPI)NonAf 68.62 01/16/20 13:20 Random Glucose 119 mg/dL (74-106) H 01/16/20 13:20 Calcium 8.8 mg/dL (8.5-10.1) 01/16/20 13:20 Total Bilirubin 1.2 mg/dL (0.2-1) H 01/16/20 13:20 AST 74 U/L (15-37) H 01/16/20 13:20 ALT 54 U/L (13-61) 01/16/20 13:20 Alkaline Phosphatase 110 U/L (45-117) 01/16/20 13:20 Total Protein 6.8 g/dl (6.4-8.2) 01/16/20 13:20 Albumin 3.1 g/dl (3.4-5.0) L 01/16/20 13:20 Syphilis Serology Non-reactive (NONREACTIVE) 01/16/20 13:20 COVID-19 (SON) Not detected (Not Detected) 01/16/20 14:00 Assessment: 01/17/20 11:29 withdrawal symptom Plan: continue detox librium regimen,,repeat cmp,fasting glucose in am
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
[2020-01-17] MEDS: THIAMINE HCL 100 MG TABLET (FP) PO SCH (22:11)
[2020-01-17] MEDS: QUEtiapine FUMARATE 100 MG TABLET (FP) PO SCH (22:11)
[2020-01-17] MEDS: MELATONIN 5 MG TABLETS PO SCH (22:11)
[2020-01-18] MEDS: chlordiazePOXIDE HCL 25 MG CAPSULE PO SCH ×4 (05:15→22:32)
[2020-01-18] MEDS: PRENATAL VITAMINS W/ FOLIC ACID TABLET (FP) PO SCH (10:12)
[2020-01-18] MEDS: ESCITALOPRAM OXALATE 20 MG TABLET PO SCH (10:12)
[2020-01-18] MEDS: amLODIPine BESYLATE 5 MG TABLET (FP) PO SCH (10:12)
--- NOTE | 2020-01-18 11:42 | PN ---
S CIWA - CIWA Score Nausea/Vomitin-Mild Nausea/No Vomiting Muscle Tremors: 2 Anxiety: 2 Agitation: 2 Paroxysmal Sweats: No Perspiration Orientation: 0-Oriented Tacttile Disturbances: 0-None Auditory Disturbances: 0-None Visual Disturbances: 0-None Headache: 1-Very Mild CIWA-Ar Total Score: 8 BHS Progress Note (SOAP) Subjective: alert,irritable,anxious,interrupted sleep,tremor,pain in both hips Objective: 01/18/20 11:40 Vital Signs Temperature 97.8 F 01/18/20 05:09 Pulse Rate 60 01/18/20 05:09 Respiratory Rate 20 01/18/20 05:09 Blood Pressure 143/86 01/18/20 05:09 O2 Sat by Pulse Oximetry (%) 98 01/18/20 05:09 repeat cmp,fasting glucose pending Assessment: 01/18/20 11:41 withdrawal symptom Plan: continue detox librium regimen
[2020-01-18 12:08] LABS: ALBUMIN 2.4 g/dl (3.4-5.0); BILIRUBIN,TOTAL 0.3 mg/dL (0.2-1); BLOOD UREA NITROGEN 11.7 mg/dL (7-18); CREATININE 0.8 mg/dL (0.55-1.3); POTASSIUM 4.2 mmol/L (3.5-5.1); TOT PROT 5.3 g/dl (6.4-8.2)
[2020-01-18] MEDS: THIAMINE HCL 100 MG TABLET (FP) PO SCH (22:31)
[2020-01-18] MEDS: hydrOXYzine PAMOATE 25 MG CAPSULE (FP) PO PRN (22:32)
[2020-01-18] MEDS: MELATONIN 5 MG TABLETS PO SCH (22:32)
[2020-01-18] MEDS: QUEtiapine FUMARATE 100 MG TABLET (FP) PO SCH (22:32)
[2020-01-19] MEDS ORDERED: chlordiazePOXIDE HCL 10 MG CAPSULE PO PRN
[2020-01-19] MEDS: chlordiazePOXIDE HCL 10 MG CAPSULE PO SCH ×4 (05:08→22:15)
[2020-01-19] MEDS: amLODIPine BESYLATE 5 MG TABLET (FP) PO SCH (11:30)
[2020-01-19] MEDS: ESCITALOPRAM OXALATE 20 MG TABLET PO SCH (11:30)
[2020-01-19] MEDS: hydrOXYzine PAMOATE 25 MG CAPSULE (FP) PO PRN ×2 (11:31→22:14)
[2020-01-19] MEDS: PRENATAL VITAMINS W/ FOLIC ACID TABLET (FP) PO SCH (11:35)
--- NOTE | 2020-01-19 11:59 | PN ---
[facility] CIWA - CIWA Score Nausea/Vomitin-Mild Nausea/No Vomiting Muscle Tremors: 2 Anxiety: 2 Agitation: 1-Slight > Activity Paroxysmal Sweats: No Perspiration Orientation: 0-Oriented Tacttile Disturbances: 0-None Auditory Disturbances: 0-None Visual Disturbances: 0-None Headache: 1-Very Mild CIWA-Ar Total Score: 7 S Progress Note (SOAP) Subjective: alert,irritable,anxious,interrupted sleep,pain in the body Objective: 01/19/20 11:56 Vital Signs Temperature 97.2 F L 01/19/20 08:44 Pulse Rate 81 01/19/20 08:44 Respiratory Rate 20 01/19/20 08:44 Blood Pressure 150/87 01/19/20 08:44 O2 Sat by Pulse Oximetry (%) 97 01/19/20 08:44 Assessment: 01/19/20 11:56 withdrawal symptom Plan: continue detox librium regimen
[2020-01-19] MEDS: THIAMINE HCL 100 MG TABLET (FP) PO SCH (22:15)
[2020-01-19] MEDS: QUEtiapine FUMARATE 100 MG TABLET (FP) PO SCH (22:15)
[2020-01-19] MEDS: MELATONIN 5 MG TABLETS PO SCH (22:15)
[2020-01-20] MEDS: chlordiazePOXIDE HCL 10 MG CAPSULE PO SCH ×2 (06:28→17:50)
[2020-01-20] MEDS: amLODIPine BESYLATE 5 MG TABLET (FP) PO SCH (10:37)
[2020-01-20] MEDS: hydrOXYzine PAMOATE 25 MG CAPSULE (FP) PO PRN ×2 (10:37→21:59)
[2020-01-20] MEDS: PRENATAL VITAMINS W/ FOLIC ACID TABLET (FP) PO SCH (10:37)
[2020-01-20] MEDS: METHOCARBAMOL 500 MG TABLET PO PRN (10:38)
[2020-01-20] MEDS: ESCITALOPRAM OXALATE 20 MG TABLET PO SCH (10:38)
--- NOTE | 2020-01-20 10:44 | PN ---
S CIWA - CIWA Score Nausea/Vomitin-No Nausea/No Vomiting Muscle Tremors: None Anxiety: 2 Agitation: 0-Normal Activity Paroxysmal Sweats: 1-Minimal Palms Moist Orientation: 0-Oriented Tacttile Disturbances: 0-None Auditory Disturbances: 0-None Visual Disturbances: 0-None Headache: 0-None Present CIWA-Ar Total Score: 3 BHS Progress Note (SOAP) Subjective: c/o mild withdrawal symptoms. Objective: 01/20/20 10:43 Vital Signs 01/20/20 01/20/20 05:42 09:00 Temperature 96.8 F L 97.1 F L Pulse Rate 61 77 Respiratory 16 20 Rate Blood Pressure 111/77 154/94 O2 Sat by Pulse 99 99 Oximetry (%) Laboratory Last Values WBC 5.5 K/mm3 (4.0-10.0) 01/16/20 13:20 RBC 4.15 M/mm3 (4.00-5.60) 01/16/20 13:20 Hgb 13.6 GM/dL (11.7-16.9) 01/16/20 13:20 Hct 40.5 % (35.4-49) 01/16/20 13:20 MCV 97.6 fl (80-96) H 01/16/20 13:20 MCH 32.7 pg (25.7-33.7) 01/16/20 13:20 MCHC 33.5 g/dl (32.0-35.9) 01/16/20 13:20 RDW 16.2 % (11.9-15.9) H 01/16/20 13:20 Plt Count 266 K/MM3 (134-434) D 01/16/20 13:20 MPV 8.3 fl (7.5-11.1) 01/16/20 13:20 Sodium 143 mmol/L (136-145) 01/18/20 08:05 Potassium 4.2 mmol/L (3.5-5.1) 01/18/20 08:05 Chloride 112 mmol/L (98-107) H 01/18/20 08:05 Carbon Dioxide 26 mmol/L (21-32) 01/18/20 08:05 Anion Gap 6 MMOL/L (8-16) L 01/18/20 08:05 BUN 11.7 mg/dL (7-18) 01/18/20 08:05 Creatinine 0.8 mg/dL (0.55-1.3) 01/18/20 08:05 Est GFR (CKD-EPI)AfAm 118.20 01/18/20 08:05 Est GFR (CKD-EPI)NonAf 101.99 01/18/20 08:05 Random Glucose 90 mg/dL (74-106) 01/18/20 08:05 Fasting Glucose 92 mg/dL (74-106) 01/18/20 08:05 Calcium 8.0 mg/dL (8.5-10.1) L 01/18/20 08:05 Total Bilirubin 0.3 mg/dL (0.2-1) 01/18/20 08:05 AST 55 U/L (15-37) H 01/18/20 08:05 ALT 53 U/L (13-61) 01/18/20 08:05 Alkaline Phosphatase 74 U/L (45-117) 01/18/20 08:05 Total Protein 5.3 g/dl (6.4-8.2) L 01/18/20 08:05 Albumin 2.4 g/dl (3.4-5.0) L 01/18/20 08:05 Syphilis Serology Non-reactive (NONREACTIVE) 01/16/20 13:20 COVID-19 (SON) Not detected (Not Detected) 01/16/20 14:00 Labs noted. Assessment: 01/20/20 10:43 AOX3 and in no acute respiratory distress. Full ROM, ambulating in the unit. Mild Withdrawal symptoms. For d/c tomorrow. Plan: continue detox. D/C in AM.
[2020-01-20] MEDS: THIAMINE HCL 100 MG TABLET (FP) PO SCH (21:59)
[2020-01-20] MEDS: MELATONIN 5 MG TABLETS PO SCH (21:59)
[2020-01-20] MEDS: QUEtiapine FUMARATE 100 MG TABLET (FP) PO SCH (21:59)
[2020-01-21] MEDS ORDERED: chlordiazePOXIDE HCL 10 MG CAPSULE PO ONE (05:00)
[2020-01-21] MEDS: hydrOXYzine PAMOATE 25 MG CAPSULE (FP) PO PRN ×2 (05:11→10:38)
[2020-01-21 10:34] VITALS: BP 116/74; PULSE 87; TEMP 97.2
[2020-01-21] MEDS: PRENATAL VITAMINS W/ FOLIC ACID TABLET (FP) PO SCH (10:37)
[2020-01-21] MEDS: amLODIPine BESYLATE 5 MG TABLET (FP) PO SCH (10:37)
[2020-01-21] MEDS: ESCITALOPRAM OXALATE 20 MG TABLET PO SCH (10:38)
--- NOTE | 2020-01-21 11:07 | DS ---
[facility] Detox Discharge Summary Admission Date: 01/16/20 Discharge Date: 01/21/20 - History Present History: Alcohol Dependence - Physical Exam Results Vital Signs: Vital Signs Temperature 97.2 F L 01/21/20 08:39 Pulse Rate 87 01/21/20 08:39 Respiratory Rate 20 01/21/20 08:39 Blood Pressure 116/74 01/21/20 08:39 O2 Sat by Pulse Oximetry (%) 98 01/21/20 08:39 Laboratory Tests 01/16/20 01/16/20 01/16/20 13:20 13:20 13:20 WBC 5.5 RBC 4.15 Hgb 13.6 Hct 40.5 MCV 97.6 H MCH 32.7 MCHC 33.5 RDW 16.2 H Plt Count 266 D MPV 8.3 Sodium 139 Potassium 3.5 Chloride 103 Carbon Dioxide 27 Anion Gap 9 BUN 13.3 Creatinine 1.2 Est GFR (CKD-EPI)AfAm 79.53 Est GFR (CKD-EPI)NonAf 68.62 Random Glucose 119 H Fasting Glucose Calcium 8.8 Total Bilirubin 1.2 H AST 74 H ALT 54 Alkaline Phosphatase 110 Total Protein 6.8 Albumin 3.1 L Syphilis Serology Non-reactive COVID-19 (SON) 01/16/20 01/18/20 01/18/20 14:00 08:05 08:05 WBC RBC Hgb Hct MCV MCH MCHC RDW Plt Count MPV Sodium 143 Potassium 4.2 Chloride 112 H Carbon Dioxide 26 Anion Gap 6 L BUN 11.7 Creatinine 0.8 Est GFR (CKD-EPI)AfAm 118.20 Est GFR (CKD-EPI)NonAf 101.99 Random Glucose 90 Fasting Glucose 92 Calcium 8.0 L Total Bilirubin 0.3 AST 55 H ALT 53 Alkaline Phosphatase 74 Total Protein 5.3 L Albumin 2.4 L Syphilis Serology COVID-19 ([facility]) Not detected Ambulatory Orders Albuterol Sulfate Inhaler - [Ventolin HFA Inhaler -] 2 inh PO Q4H PRN 08/30/16 Escitalopram Oxalate [Lexapro -] 10 mg PO DAILY #30 tablet 06/12/19 Quetiapine Fumarate [Seroquel -] 100 mg PO HS #30 tablet 06/12/19 Amlodipine Besylate 5 mg PO DAILY #14 tablet 12/01/19 Hydroxyzine HCl 100 mg PO BID 01/16/20 ROS: DENIES SHAKES, SWEATING, FEVER, CP AND SOB. PE ALERT AND ORIENTED X 3 SKIN WARM AND DRY +PERRLA, EOMS INTACT BL EXT FULL ROM, AMB AD FRIDA NO TREMORS - Treatment Hospital Course: Detox Protocol Followed, Detoxed Safely, Responded well, Discharged Condition Good Patient has Accepted a Rehab Referral to: [facility]ED [facility]AIL[facility] - Medication Discharge Medications: Ambulatory Orders Albuterol Sulfate Inhaler - [Ventolin HFA Inhaler -] 2 inh PO Q4H PRN 08/30/16 Escitalopram Oxalate [Lexapro -] 10 mg PO DAILY #30 tablet 06/12/19 Quetiapine Fumarate [Seroquel -] 100 mg PO HS #30 tablet 06/12/19 Hydroxyzine HCl 100 mg PO BID 01/16/20 Amlodipine Besylate 5 mg PO DAILY #14 tablet 01/21/20 - AMA Did Patient Leave Against Medical Advice: No
== END 2020-01-21 12:30 | disposition home or self-care (01) | DRG 775 ==
LOC: YASAS 11:08 → Y6N 12:36
PROVIDERS: ADMIT Allergy & Immunology; ATTEND Allergy & Immunology
PROC: HZ2ZZZZ Detoxification Services for Substance Abuse Treatment (ICD-10-PCS; principal; 2020-01-16)
DX: F10.230 Alcohol dependence with withdrawal, uncomplicated (principal); F12.20 Cannabis dependence, uncomplicated; F32.9 Major depressive disorder, single episode, unspecified; F19.282 Other psychoactive substance dependence with psychoactive substance-induced sleep disorder; F43.10 Post-traumatic stress disorder, unspecified; I10 Essential (primary) hypertension; J45.909 Unspecified asthma, uncomplicated; R63.4 Abnormal weight loss; Z88.5 Allergy status to narcotic agent; Z96.643 Presence of artificial hip joint, bilateral; Z87.891 Personal history of nicotine dependence
CPT/HCPCS: 36415; 80053; 82947; 85027; 86780; U0003

== ENCOUNTER 2020-09-05 09:06 | Inpatient (IN) | payer OTHER ==
[2020-09-05 09:51] VITALS: BMI 28.2
[2020-09-05] MEDS ORDERED: ONDANSETRON *ODT* 4 MG TABLET SL PRN (11:31)
[2020-09-05] MEDS ORDERED: MAGNESIUM CITRATE 300 ML BOTTLE PO PRN (11:31)
[2020-09-05] MEDS ORDERED: BISMUTH SUBSALICYLATE 262 MG/15 ML BTL PO PRN (11:31)
[2020-09-05] MEDS ORDERED: MAG HYDROX/AL HYDROX/SIMETH 30 ML UNIT-DOSE CUP PO PRN (11:31)
[2020-09-05] MEDS ORDERED: ACETAMINOPHEN 325 MG TABLET (FP) PO PRN ×2 (11:31)
[2020-09-05] MEDS ORDERED: MENTHOL/PHENOL 1 EACH UD MM PRN (11:31)
[2020-09-05] MEDS ORDERED: MAGNESIUM HYDROX 2400MG/30ML ORAL SUSPENSION 30 ML CUP PO PRN (11:31)
[2020-09-05] MEDS: IBUPROFEN 400 MG TABLET (FP) PO PRN (11:52)
[2020-09-05] MEDS: chlordiazePOXIDE HCL 25 MG CAPSULE PO PRN (11:52)
[2020-09-05] MEDS: METHOCARBAMOL 500 MG TABLET PO PRN (11:52)
[2020-09-05] MEDS ORDERED: ALBUTEROL SO4 HFA INHALER IH PRN (12:51)
[2020-09-05] MEDS ORDERED: hydrOXYzine PAMOATE 25 MG CAPSULE (FP) PO SCH (14:00)
[2020-09-05 14:35] LABS: POTASSIUM 3.6 mmol/L (3.5-5.1)
[2020-09-05 14:37] LABS: HEMOGLOBIN 15.2 GM/dL (11.7-16.9); MCH 32.5 pg (25.7-33.7); MCHC 33.9 g/dl (32.0-35.9); MEAN CELL VOLUME 95.9 fl (80-96); PLATELET COUNT 180 K/MM3 (134-434); RBC 4.69 M/mm3 (4.00-5.60); RDW 17.3 % (11.9-15.9); WHITE BLOOD COUNT 6.3 K/mm3 (4.0-10.0)
[2020-09-05 14:38] LABS: ALBUMIN 3.9 g/dl (3.4-5.0); BLOOD UREA NITROGEN 10.8 mg/dL (7-18); CALCIUM 9.1 mg/dL (8.5-10.1)
[2020-09-05 14:41] LABS: CREATININE 1.1 mg/dL (0.55-1.3)
[2020-09-05 14:43] LABS: BILIRUBIN,TOTAL 1.5 mg/dL (0.2-1); TOT PROT 7.4 g/dl (6.4-8.2)
[2020-09-05] MEDS ORDERED: MASKS NR ONE (17:27)
[2020-09-05] MEDS: chlordiazePOXIDE HCL 25 MG CAPSULE PO SCH ×2 (17:28→22:17)
[2020-09-05] MEDS: THIAMINE HCL 100 MG TABLET (FP) PO SCH (22:16)
[2020-09-05] MEDS: QUEtiapine FUMARATE 100 MG TABLET (FP) PO SCH (22:16)
[2020-09-05] MEDS: MELATONIN 5 MG TABLETS PO SCH (22:16)
[2020-09-06] MEDS: chlordiazePOXIDE HCL 25 MG CAPSULE PO SCH ×4 (05:49→23:11)
[2020-09-06] MEDS: amLODIPine BESYLATE 5 MG TABLET (FP) PO SCH (10:14)
[2020-09-06] MEDS: PRENATAL VITAMINS W/ FOLIC ACID TABLET (FP) PO SCH (10:14)
[2020-09-06] MEDS: chlordiazePOXIDE HCL 25 MG CAPSULE PO PRN (12:44)
[2020-09-06] MEDS: hydrOXYzine PAMOATE 25 MG CAPSULE (FP) PO PRN ×2 (12:45→18:37)
[2020-09-06] MEDS: THIAMINE HCL 100 MG TABLET (FP) PO SCH (23:11)
[2020-09-06] MEDS: MELATONIN 5 MG TABLETS PO SCH (23:11)
[2020-09-06] MEDS: QUEtiapine FUMARATE 100 MG TABLET (FP) PO SCH (23:11)
[2020-09-07] MEDS: chlordiazePOXIDE HCL 25 MG CAPSULE PO SCH ×4 (06:17→22:00)
[2020-09-07] MEDS: chlordiazePOXIDE HCL 25 MG CAPSULE PO PRN ×2 (09:00→13:02)
[2020-09-07] MEDS: PRENATAL VITAMINS W/ FOLIC ACID TABLET (FP) PO SCH (10:21)
[2020-09-07] MEDS: amLODIPine BESYLATE 5 MG TABLET (FP) PO SCH (10:21)
[2020-09-07] MEDS: hydrOXYzine PAMOATE 25 MG CAPSULE (FP) PO PRN ×3 (11:57→21:50)
[2020-09-07] MEDS: THIAMINE HCL 100 MG TABLET (FP) PO SCH (21:49)
[2020-09-07] MEDS: MELATONIN 5 MG TABLETS PO SCH (21:49)
[2020-09-07] MEDS: QUEtiapine FUMARATE 100 MG TABLET (FP) PO SCH (21:49)
[2020-09-08] MEDS: chlordiazePOXIDE HCL 10 MG CAPSULE PO SCH ×4 (07:50→22:15)
[2020-09-08] MEDS: chlordiazePOXIDE HCL 10 MG CAPSULE PO PRN ×3 (08:25→19:24)
[2020-09-08] MEDS: PRENATAL VITAMINS W/ FOLIC ACID TABLET (FP) PO SCH (11:04)
[2020-09-08] MEDS: amLODIPine BESYLATE 5 MG TABLET (FP) PO SCH (11:04)
[2020-09-08] MEDS: ESCITALOPRAM OXALATE 10 MG TABLET PO SCH (11:04)
[2020-09-08] MEDS: hydrOXYzine PAMOATE 25 MG CAPSULE (FP) PO PRN (15:01)
[2020-09-08] MEDS: IBUPROFEN 400 MG TABLET (FP) PO PRN (19:23)
[2020-09-08] MEDS ORDERED: QUEtiapine FUMARATE 50 MG TABLET ONE (21:26)
[2020-09-08] MEDS: QUEtiapine FUMARATE 100 MG TABLET (FP) PO SCH (22:14)
[2020-09-08] MEDS: THIAMINE HCL 100 MG TABLET (FP) PO SCH (22:14)
[2020-09-08] MEDS: MELATONIN 5 MG TABLETS PO SCH (22:16)
[2020-09-09] MEDS: chlordiazePOXIDE HCL 10 MG CAPSULE PO SCH ×2 (06:41→17:07)
[2020-09-09] MEDS: METHOCARBAMOL 500 MG TABLET PO PRN (10:03)
[2020-09-09] MEDS: PRENATAL VITAMINS W/ FOLIC ACID TABLET (FP) PO SCH (10:03)
[2020-09-09] MEDS: hydrOXYzine PAMOATE 25 MG CAPSULE (FP) PO PRN ×3 (10:03→21:02)
[2020-09-09] MEDS: amLODIPine BESYLATE 5 MG TABLET (FP) PO SCH (10:04)
[2020-09-09] MEDS: ESCITALOPRAM OXALATE 10 MG TABLET PO SCH (10:04)
[2020-09-09] MEDS ORDERED: chlordiazePOXIDE HCL 10 MG CAPSULE PO ONE (10:15)
[2020-09-09 11:42] LABS: POTASSIUM 4.3 mmol/L (3.5-5.1)
[2020-09-09 11:48] LABS: CALCIUM 8.8 mg/dL (8.5-10.1)
[2020-09-09 11:49] LABS: ALBUMIN 3.2 g/dl (3.4-5.0); BLOOD UREA NITROGEN 15.1 mg/dL (7-18)
[2020-09-09 11:51] LABS: BILIRUBIN,TOTAL 0.3 mg/dL (0.2-1); TOT PROT 6.4 g/dl (6.4-8.2)
[2020-09-09 11:52] LABS: CREATININE 0.9 mg/dL (0.55-1.3)
[2020-09-09 17:23] LABS: URINE APPEARANCE CLEAR; URINE BILIRUBIN NEGATIVE (NEGATIVE); URINE COLOR YELLOW; URINE GLUCOSE (UA) NEGATIVE (NEGATIVE); URINE KETONE NEGATIVE (NEGATIVE); URINE LEUK ESTERASE NEGATIVE (NEGATIVE); URINE NITRITE NEGATIVE (NEGATIVE); URINE PROTEIN NEGATIVE (NEGATIVE); URINE UROBILINOGEN 0.2 mg/dL (0.2-1.0)
[2020-09-09] MEDS: IBUPROFEN 400 MG TABLET (FP) PO PRN (18:48)
[2020-09-09] MEDS: QUEtiapine FUMARATE 100 MG TABLET (FP) PO SCH (21:01)
[2020-09-09] MEDS: MELATONIN 5 MG TABLETS PO SCH (21:02)
[2020-09-09] MEDS: THIAMINE HCL 100 MG TABLET (FP) PO SCH (21:02)
[2020-09-10] MEDS ORDERED: chlordiazePOXIDE HCL 10 MG CAPSULE PO ONE (05:00)
[2020-09-10] MEDS: ESCITALOPRAM OXALATE 10 MG TABLET PO SCH (10:26)
[2020-09-10] MEDS: PRENATAL VITAMINS W/ FOLIC ACID TABLET (FP) PO SCH (10:26)
[2020-09-10] MEDS: amLODIPine BESYLATE 5 MG TABLET (FP) PO SCH (10:27)
[2020-09-10] MEDS: hydrOXYzine PAMOATE 25 MG CAPSULE (FP) PO PRN ×2 (10:27→19:07)
[2020-09-10] MEDS: MELATONIN 5 MG TABLETS PO SCH (21:29)
[2020-09-10] MEDS: QUEtiapine FUMARATE 100 MG TABLET (FP) PO SCH (21:29)
[2020-09-10] MEDS: THIAMINE HCL 100 MG TABLET (FP) PO SCH (21:29)
[2020-09-10] MEDS: IBUPROFEN 400 MG TABLET (FP) PO PRN (21:31)
[2020-09-11] MEDS: PRENATAL VITAMINS W/ FOLIC ACID TABLET (FP) PO SCH (09:48)
[2020-09-11] MEDS: amLODIPine BESYLATE 5 MG TABLET (FP) PO SCH (09:48)
[2020-09-11] MEDS: ESCITALOPRAM OXALATE 10 MG TABLET PO SCH (09:48)
[2020-09-11] MEDS: hydrOXYzine PAMOATE 25 MG CAPSULE (FP) PO PRN (09:51)
[2020-09-11] MEDS ORDERED: hydrOXYzine PAMOATE 50 MG CAPSULE (FP) PO PRN (10:21)
[2020-09-11] MEDS: LIDOCAINE 5% TOPICAL PATCH TP SCH (10:54)
[2020-09-11] MEDS: METHOCARBAMOL 500 MG TABLET PO SCH ×3 (13:21→21:01)
[2020-09-11] MEDS ORDERED: AMMONIUM LACTATE 12% LOTION 225 GM BOTTLE TP PRN (13:24)
[2020-09-11] MEDS: hydrOXYzine PAMOATE 50 MG CAPSULE (FP) PO PRN ×3 (13:44→22:29)
[2020-09-11] MEDS: QUEtiapine FUMARATE 100 MG TABLET (FP) PO SCH (21:01)
[2020-09-11] MEDS: MELATONIN 5 MG TABLETS PO SCH (21:01)
[2020-09-11] MEDS: THIAMINE HCL 100 MG TABLET (FP) PO SCH (21:01)
[2020-09-11] MEDS: LIDOCAINE PATCH REMOVAL MC SCH (21:03)
[2020-09-12] MEDS: METHOCARBAMOL 500 MG TABLET PO SCH ×4 (10:00→21:02)
[2020-09-12] MEDS: amLODIPine BESYLATE 5 MG TABLET (FP) PO SCH (10:00)
[2020-09-12] MEDS: PRENATAL VITAMINS W/ FOLIC ACID TABLET (FP) PO SCH (10:00)
[2020-09-12] MEDS: LIDOCAINE 5% TOPICAL PATCH TP SCH (10:00)
[2020-09-12] MEDS: ESCITALOPRAM OXALATE 10 MG TABLET PO SCH (10:00)
[2020-09-12] MEDS: hydrOXYzine PAMOATE 50 MG CAPSULE (FP) PO PRN ×3 (10:00→21:02)
[2020-09-12] MEDS: QUEtiapine FUMARATE 100 MG TABLET (FP) PO SCH (21:02)
[2020-09-12] MEDS: THIAMINE HCL 100 MG TABLET (FP) PO SCH (21:02)
[2020-09-12] MEDS: MELATONIN 5 MG TABLETS PO SCH (21:02)
[2020-09-12] MEDS: LIDOCAINE PATCH REMOVAL MC SCH (21:03)
[2020-09-13] MEDS: METHOCARBAMOL 500 MG TABLET PO SCH ×4 (10:25→21:22)
[2020-09-13] MEDS: LIDOCAINE 5% TOPICAL PATCH TP SCH (10:25)
[2020-09-13] MEDS: amLODIPine BESYLATE 5 MG TABLET (FP) PO SCH (10:25)
[2020-09-13] MEDS: ESCITALOPRAM OXALATE 10 MG TABLET PO SCH (10:25)
[2020-09-13] MEDS: PRENATAL VITAMINS W/ FOLIC ACID TABLET (FP) PO SCH (10:25)
[2020-09-13] MEDS: hydrOXYzine PAMOATE 50 MG CAPSULE (FP) PO PRN ×3 (10:25→21:23)
[2020-09-13] MEDS: QUEtiapine FUMARATE 100 MG TABLET (FP) PO SCH (21:22)
[2020-09-13] MEDS: THIAMINE HCL 100 MG TABLET (FP) PO SCH (21:22)
[2020-09-13] MEDS: MELATONIN 5 MG TABLETS PO SCH (21:22)
[2020-09-13] MEDS: LIDOCAINE PATCH REMOVAL MC SCH (21:23)
[2020-09-14] MEDS: amLODIPine BESYLATE 5 MG TABLET (FP) PO SCH (09:38)
[2020-09-14] MEDS: hydrOXYzine PAMOATE 50 MG CAPSULE (FP) PO PRN ×3 (09:38→21:04)
[2020-09-14] MEDS: PRENATAL VITAMINS W/ FOLIC ACID TABLET (FP) PO SCH (09:38)
[2020-09-14] MEDS: ESCITALOPRAM OXALATE 10 MG TABLET PO SCH (09:38)
[2020-09-14] MEDS: LIDOCAINE 5% TOPICAL PATCH TP SCH (09:38)
[2020-09-14] MEDS: METHOCARBAMOL 500 MG TABLET PO SCH ×4 (09:38→21:03)
[2020-09-14] MEDS: MELATONIN 5 MG TABLETS PO SCH (21:02)
[2020-09-14] MEDS: THIAMINE HCL 100 MG TABLET (FP) PO SCH (21:02)
[2020-09-14] MEDS: QUEtiapine FUMARATE 100 MG TABLET (FP) PO SCH (21:03)
[2020-09-14] MEDS: LIDOCAINE PATCH REMOVAL MC SCH (21:04)
[2020-09-15] MEDS: LIDOCAINE 5% TOPICAL PATCH TP SCH (09:00)
[2020-09-15] MEDS: PRENATAL VITAMINS W/ FOLIC ACID TABLET (FP) PO SCH (09:00)
[2020-09-15] MEDS: hydrOXYzine PAMOATE 50 MG CAPSULE (FP) PO PRN ×3 (09:01→21:29)
[2020-09-15] MEDS: METHOCARBAMOL 500 MG TABLET PO SCH ×4 (09:01→21:29)
[2020-09-15] MEDS: amLODIPine BESYLATE 5 MG TABLET (FP) PO SCH (09:01)
[2020-09-15] MEDS: ESCITALOPRAM OXALATE 10 MG TABLET PO SCH (09:01)
[2020-09-15] MEDS: LIDOCAINE PATCH REMOVAL MC SCH (21:28)
[2020-09-15] MEDS: THIAMINE HCL 100 MG TABLET (FP) PO SCH (21:29)
[2020-09-15] MEDS: MELATONIN 5 MG TABLETS PO SCH (21:29)
[2020-09-15] MEDS: QUEtiapine FUMARATE 100 MG TABLET (FP) PO SCH (21:29)
[2020-09-16] MEDS: METHOCARBAMOL 500 MG TABLET PO SCH ×4 (09:41→21:10)
[2020-09-16] MEDS: PRENATAL VITAMINS W/ FOLIC ACID TABLET (FP) PO SCH (09:41)
[2020-09-16] MEDS: ESCITALOPRAM OXALATE 10 MG TABLET PO SCH (09:41)
[2020-09-16] MEDS: amLODIPine BESYLATE 5 MG TABLET (FP) PO SCH (09:41)
[2020-09-16] MEDS: LIDOCAINE 5% TOPICAL PATCH TP SCH (09:42)
[2020-09-16] MEDS: hydrOXYzine PAMOATE 50 MG CAPSULE (FP) PO PRN ×3 (09:43→21:10)
[2020-09-16] MEDS: SODIUM CHLORIDE NASAL SPRAY 44 ML BOTTLE NS PRN (13:48)
[2020-09-16] MEDS: MELATONIN 5 MG TABLETS PO SCH (21:09)
[2020-09-16] MEDS: THIAMINE HCL 100 MG TABLET (FP) PO SCH (21:09)
[2020-09-16] MEDS: QUEtiapine FUMARATE 100 MG TABLET (FP) PO SCH (21:10)
[2020-09-16] MEDS: LIDOCAINE PATCH REMOVAL MC SCH (21:36)
[2020-09-17 06:05] LABS: SARS-CoV-2 NAA Not Detected (Not Detected)
[2020-09-17] MEDS: PRENATAL VITAMINS W/ FOLIC ACID TABLET (FP) PO SCH (09:32)
[2020-09-17] MEDS: METHOCARBAMOL 500 MG TABLET PO SCH ×4 (09:32→21:16)
[2020-09-17] MEDS: amLODIPine BESYLATE 5 MG TABLET (FP) PO SCH (09:32)
[2020-09-17] MEDS: hydrOXYzine PAMOATE 50 MG CAPSULE (FP) PO PRN ×3 (09:32→21:16)
[2020-09-17] MEDS: ESCITALOPRAM OXALATE 10 MG TABLET PO SCH (09:32)
[2020-09-17] MEDS: LIDOCAINE 5% TOPICAL PATCH TP SCH (09:33)
[2020-09-17] MEDS: THIAMINE HCL 100 MG TABLET (FP) PO SCH (21:15)
[2020-09-17] MEDS: QUEtiapine FUMARATE 100 MG TABLET (FP) PO SCH (21:15)
[2020-09-17] MEDS: MELATONIN 5 MG TABLETS PO SCH (21:15)
[2020-09-17] MEDS: LIDOCAINE PATCH REMOVAL MC SCH (21:16)
[2020-09-18] MEDS: PRENATAL VITAMINS W/ FOLIC ACID TABLET (FP) PO SCH (10:04)
[2020-09-18] MEDS: hydrOXYzine PAMOATE 50 MG CAPSULE (FP) PO PRN ×3 (10:04→21:11)
[2020-09-18] MEDS: amLODIPine BESYLATE 5 MG TABLET (FP) PO SCH (10:04)
[2020-09-18] MEDS: METHOCARBAMOL 500 MG TABLET PO SCH ×4 (10:04→21:10)
[2020-09-18] MEDS: ESCITALOPRAM OXALATE 10 MG TABLET PO SCH (10:04)
[2020-09-18] MEDS: LIDOCAINE 5% TOPICAL PATCH TP SCH (10:05)
[2020-09-18] MEDS: MELATONIN 5 MG TABLETS PO SCH (21:10)
[2020-09-18] MEDS: QUEtiapine FUMARATE 100 MG TABLET (FP) PO SCH (21:10)
[2020-09-18] MEDS: THIAMINE HCL 100 MG TABLET (FP) PO SCH (21:10)
[2020-09-18] MEDS: LIDOCAINE PATCH REMOVAL MC SCH (21:28)
[2020-09-19] MEDS: hydrOXYzine PAMOATE 50 MG CAPSULE (FP) PO PRN ×3 (09:39→21:23)
[2020-09-19] MEDS: PRENATAL VITAMINS W/ FOLIC ACID TABLET (FP) PO SCH (09:39)
[2020-09-19] MEDS: METHOCARBAMOL 500 MG TABLET PO SCH ×4 (09:39→21:22)
[2020-09-19] MEDS: ESCITALOPRAM OXALATE 10 MG TABLET PO SCH (09:39)
[2020-09-19] MEDS: amLODIPine BESYLATE 5 MG TABLET (FP) PO SCH (09:39)
[2020-09-19] MEDS: LIDOCAINE 5% TOPICAL PATCH TP SCH (09:40)
[2020-09-19] MEDS: THIAMINE HCL 100 MG TABLET (FP) PO SCH (21:21)
[2020-09-19] MEDS: MELATONIN 5 MG TABLETS PO SCH (21:22)
[2020-09-19] MEDS: QUEtiapine FUMARATE 100 MG TABLET (FP) PO SCH (21:22)
[2020-09-19] MEDS: LIDOCAINE PATCH REMOVAL MC SCH (21:23)
[2020-09-20] MEDS: LIDOCAINE 5% TOPICAL PATCH TP SCH (09:41)
[2020-09-20] MEDS: ESCITALOPRAM OXALATE 10 MG TABLET PO SCH (09:41)
[2020-09-20] MEDS: hydrOXYzine PAMOATE 50 MG CAPSULE (FP) PO PRN ×3 (09:41→19:23)
[2020-09-20] MEDS: METHOCARBAMOL 500 MG TABLET PO SCH ×4 (09:41→21:07)
[2020-09-20] MEDS: amLODIPine BESYLATE 5 MG TABLET (FP) PO SCH (09:41)
[2020-09-20] MEDS: PRENATAL VITAMINS W/ FOLIC ACID TABLET (FP) PO SCH (09:41)
[2020-09-20] MEDS: SODIUM CHLORIDE NASAL SPRAY 44 ML BOTTLE NS PRN (14:14)
[2020-09-20] MEDS: VITAMINS A AND D TOPICAL OINTMENT 60 GM TUBE TP SCH ×2 (18:20→23:22)
[2020-09-20] MEDS: QUEtiapine FUMARATE 100 MG TABLET (FP) PO SCH (21:07)
[2020-09-20] MEDS: MELATONIN 5 MG TABLETS PO SCH (21:07)
[2020-09-20] MEDS: THIAMINE HCL 100 MG TABLET (FP) PO SCH (21:07)
[2020-09-20] MEDS: LIDOCAINE PATCH REMOVAL MC SCH (21:07)
[2020-09-21] MEDS: VITAMINS A AND D TOPICAL OINTMENT 60 GM TUBE TP SCH ×3 (06:43→17:29)
[2020-09-21] MEDS: hydrOXYzine PAMOATE 50 MG CAPSULE (FP) PO PRN ×2 (10:04→13:49)
[2020-09-21] MEDS: amLODIPine BESYLATE 5 MG TABLET (FP) PO SCH (10:04)
[2020-09-21] MEDS: ESCITALOPRAM OXALATE 10 MG TABLET PO SCH (10:04)
[2020-09-21] MEDS: METHOCARBAMOL 500 MG TABLET PO SCH ×4 (10:04→21:34)
[2020-09-21] MEDS: PRENATAL VITAMINS W/ FOLIC ACID TABLET (FP) PO SCH (10:04)
[2020-09-21] MEDS: LIDOCAINE 5% TOPICAL PATCH TP SCH (10:04)
[2020-09-21] MEDS: SODIUM CHLORIDE NASAL SPRAY 44 ML BOTTLE NS PRN (10:05)
[2020-09-21] MEDS: THIAMINE HCL 100 MG TABLET (FP) PO SCH (21:34)
[2020-09-21] MEDS: QUEtiapine FUMARATE 100 MG TABLET (FP) PO SCH (21:34)
[2020-09-21] MEDS: MELATONIN 5 MG TABLETS PO SCH (21:35)
[2020-09-21] MEDS: LIDOCAINE PATCH REMOVAL MC SCH (21:35)
[2020-09-22] MEDS: VITAMINS A AND D TOPICAL OINTMENT 60 GM TUBE TP SCH ×4 (02:51→17:57)
[2020-09-22] MEDS: LIDOCAINE 5% TOPICAL PATCH TP SCH (09:32)
[2020-09-22] MEDS: METHOCARBAMOL 500 MG TABLET PO SCH ×4 (09:32→21:13)
[2020-09-22] MEDS: PRENATAL VITAMINS W/ FOLIC ACID TABLET (FP) PO SCH (09:32)
[2020-09-22] MEDS: amLODIPine BESYLATE 5 MG TABLET (FP) PO SCH (09:32)
[2020-09-22] MEDS: hydrOXYzine PAMOATE 50 MG CAPSULE (FP) PO PRN ×3 (09:32→21:14)
[2020-09-22] MEDS: ESCITALOPRAM OXALATE 10 MG TABLET PO SCH (09:32)
[2020-09-22] MEDS: THIAMINE HCL 100 MG TABLET (FP) PO SCH (21:13)
[2020-09-22] MEDS: QUEtiapine FUMARATE 100 MG TABLET (FP) PO SCH (21:13)
[2020-09-22] MEDS: MELATONIN 5 MG TABLETS PO SCH (21:13)
[2020-09-22] MEDS: LIDOCAINE PATCH REMOVAL MC SCH (21:14)
[2020-09-23] MEDS: VITAMINS A AND D TOPICAL OINTMENT 60 GM TUBE TP SCH ×5 (00:16→23:49)
[2020-09-23] MEDS: LIDOCAINE 5% TOPICAL PATCH TP SCH (09:44)
[2020-09-23] MEDS: ESCITALOPRAM OXALATE 10 MG TABLET PO SCH (09:44)
[2020-09-23] MEDS: amLODIPine BESYLATE 5 MG TABLET (FP) PO SCH (09:44)
[2020-09-23] MEDS: METHOCARBAMOL 500 MG TABLET PO SCH ×4 (09:44→21:29)
[2020-09-23] MEDS: PRENATAL VITAMINS W/ FOLIC ACID TABLET (FP) PO SCH (09:44)
[2020-09-23] MEDS: hydrOXYzine PAMOATE 50 MG CAPSULE (FP) PO PRN ×3 (09:45→21:30)
[2020-09-23] MEDS: THIAMINE HCL 100 MG TABLET (FP) PO SCH (21:29)
[2020-09-23] MEDS: QUEtiapine FUMARATE 100 MG TABLET (FP) PO SCH (21:29)
[2020-09-23] MEDS: MELATONIN 5 MG TABLETS PO SCH (21:29)
[2020-09-23] MEDS: LIDOCAINE PATCH REMOVAL MC SCH (21:29)
[2020-09-24 06:31] VITALS: TEMP 97.9
[2020-09-24] MEDS: VITAMINS A AND D TOPICAL OINTMENT 60 GM TUBE TP SCH (06:41)
[2020-09-24 08:56] VITALS: BP 130/80; PULSE 72
[2020-09-24] MEDS: ESCITALOPRAM OXALATE 10 MG TABLET PO SCH (09:21)
[2020-09-24] MEDS: amLODIPine BESYLATE 5 MG TABLET (FP) PO SCH (09:21)
[2020-09-24] MEDS: PRENATAL VITAMINS W/ FOLIC ACID TABLET (FP) PO SCH (09:21)
[2020-09-24] MEDS: hydrOXYzine PAMOATE 50 MG CAPSULE (FP) PO PRN (09:21)
[2020-09-24] MEDS: METHOCARBAMOL 500 MG TABLET PO SCH (09:21)
[2020-09-24] MEDS: LIDOCAINE 5% TOPICAL PATCH TP SCH (09:21)
== END 2020-09-24 09:35 | disposition home or self-care (01) | DRG 895 ==
LOC: YASAS 09:06 → Y3N 10:37 → Y3W 09-10 13:14
PROVIDERS: ADMIT Allergy & Immunology; ATTEND Allergy & Immunology
PROC: HZ2ZZZZ Detoxification Services for Substance Abuse Treatment (ICD-10-PCS; 2020-09-05)
PROC: HZ42ZZZ Group Counseling for Substance Abuse Treatment, Cognitive-Behavioral (ICD-10-PCS; principal; 2020-09-10)
DX: F10.20 Alcohol dependence, uncomplicated (principal); F14.20 Cocaine dependence, uncomplicated; F32.9 Major depressive disorder, single episode, unspecified; F43.10 Post-traumatic stress disorder, unspecified; F19.24 Other psychoactive substance dependence with psychoactive substance-induced mood disorder; I10 Essential (primary) hypertension; J45.909 Unspecified asthma, uncomplicated; M54.5 Low back pain; G89.29 Other chronic pain; R73.9 Hyperglycemia, unspecified; R94.5 Abnormal results of liver function studies; R60.0 Localized edema; Z96.643 Presence of artificial hip joint, bilateral; Z87.891 Personal history of nicotine dependence; Z88.5 Allergy status to narcotic agent
CPT/HCPCS: 36415; 80053; 81003; 83036; 85027; 86780; C9803; U0003; U0005

== ENCOUNTER 2020-10-17 15:06 | Inpatient (IN) | payer OTHER ==
[2020-10-17 17:46] VITALS: BMI 29.1
[2020-10-17] MEDS ORDERED: ALBUTEROL SO4 HFA INHALER IH PRN (18:08)
[2020-10-17] MEDS ORDERED: ONDANSETRON *ODT* 4 MG TABLET SL PRN (18:33)
[2020-10-17] MEDS ORDERED: MAGNESIUM HYDROX 2400MG/30ML ORAL SUSPENSION 30 ML CUP PO PRN (18:33)
[2020-10-17] MEDS ORDERED: MENTHOL/PHENOL 1 EACH UD MM PRN (18:33)
[2020-10-17] MEDS ORDERED: BISMUTH SUBSALICYLATE 524 MG/30 ML UD PO PRN (18:33)
[2020-10-17] MEDS ORDERED: chlordiazePOXIDE HCL 25 MG CAPSULE PO PRN (18:33)
[2020-10-17] MEDS ORDERED: IBUPROFEN 400 MG TABLET (FP) PO PRN (18:33)
[2020-10-17] MEDS ORDERED: MAGNESIUM CITRATE 300 ML BOTTLE PO PRN (18:33)
[2020-10-17] MEDS ORDERED: MAG HYDROX/AL HYDROX/SIMETH 30 ML UNIT-DOSE CUP PO PRN (18:33)
[2020-10-17] MEDS ORDERED: ACETAMINOPHEN 325 MG TABLET (FP) PO PRN ×2 (18:33)
[2020-10-17] MEDS ORDERED: amLODIPine BESYLATE 5 MG TABLET (FP) ONE (19:47)
[2020-10-17] MEDS ORDERED: chlordiazePOXIDE HCL 25 MG CAPSULE ONE (19:47)
[2020-10-17] MEDS: amLODIPine BESYLATE 5 MG TABLET (FP) PO SCH (19:52)
[2020-10-17] MEDS: chlordiazePOXIDE HCL 25 MG CAPSULE PO SCH ×2 (19:52→22:50)
[2020-10-17] MEDS: PRENATAL VITAMINS W/ FOLIC ACID TABLET (FP) PO SCH (22:25)
[2020-10-17] MEDS: hydrOXYzine PAMOATE 25 MG CAPSULE (FP) PO SCH (22:48)
[2020-10-17] MEDS: GABAPENTIN 300 MG CAPSULE PO SCH (22:48)
[2020-10-17] MEDS: THIAMINE HCL 100 MG TABLET (FP) PO SCH (22:50)
[2020-10-17] MEDS: MELATONIN 5 MG TABLETS PO SCH (23:42)
[2020-10-18] MEDS: chlordiazePOXIDE HCL 25 MG CAPSULE PO SCH ×4 (06:22→22:00)
[2020-10-18] MEDS: hydrOXYzine PAMOATE 25 MG CAPSULE (FP) PO SCH ×5 (06:23→21:59)
[2020-10-18] MEDS: GABAPENTIN 300 MG CAPSULE PO SCH ×3 (06:23→21:59)
[2020-10-18 10:22] LABS: HEMATOCRIT 36.5 % (35.4-49); HEMOGLOBIN 12.5 GM/dL (11.7-16.9); MCH 32.7 pg (25.7-33.7); MCHC 34.3 g/dl (32.0-35.9); MEAN CELL VOLUME 95.5 fl (80-96); MEAN PLT VOLUME 8.4 fl (7.5-11.1); PLATELET COUNT 244 K/MM3 (134-434); RBC 3.82 M/mm3 (4.00-5.60)
[2020-10-18 10:27] LABS: ALBUMIN 3.2 g/dl (3.4-5.0); BLOOD UREA NITROGEN 18.1 mg/dL (7-18); CALCIUM 8.4 mg/dL (8.5-10.1)
[2020-10-18 10:30] LABS: CREATININE 0.9 mg/dL (0.55-1.3)
[2020-10-18 10:32] LABS: BILIRUBIN,TOTAL 0.6 mg/dL (0.2-1); TOT PROT 5.9 g/dl (6.4-8.2)
[2020-10-18] MEDS: amLODIPine BESYLATE 5 MG TABLET (FP) PO SCH (11:35)
[2020-10-18] MEDS: PRENATAL VITAMINS W/ FOLIC ACID TABLET (FP) PO SCH (11:36)
[2020-10-18] MEDS: MELATONIN 5 MG TABLETS PO SCH (21:59)
[2020-10-18] MEDS: QUEtiapine FUMARATE 100 MG TABLET (FP) PO SCH (21:59)
[2020-10-18] MEDS: THIAMINE HCL 100 MG TABLET (FP) PO SCH (21:59)
[2020-10-19] MEDS: GABAPENTIN 300 MG CAPSULE PO SCH ×3 (07:26→22:05)
[2020-10-19] MEDS: chlordiazePOXIDE HCL 25 MG CAPSULE PO SCH ×4 (07:26→22:06)
[2020-10-19] MEDS: hydrOXYzine PAMOATE 25 MG CAPSULE (FP) PO SCH ×5 (07:27→22:05)
[2020-10-19] MEDS: amLODIPine BESYLATE 5 MG TABLET (FP) PO SCH (10:37)
[2020-10-19] MEDS: ESCITALOPRAM OXALATE 20 MG TABLET PO SCH (10:37)
[2020-10-19] MEDS: PRENATAL VITAMINS W/ FOLIC ACID TABLET (FP) PO SCH (10:37)
[2020-10-19] MEDS: THIAMINE HCL 100 MG TABLET (FP) PO SCH (22:05)
[2020-10-19] MEDS: QUEtiapine FUMARATE 100 MG TABLET (FP) PO SCH (22:05)
[2020-10-19] MEDS: MELATONIN 5 MG TABLETS PO SCH (22:05)
[2020-10-19] MEDS: METHOCARBAMOL 500 MG TABLET PO PRN (22:07)
[2020-10-20] MEDS ORDERED: chlordiazePOXIDE HCL 10 MG CAPSULE PO PRN
[2020-10-20] MEDS: hydrOXYzine PAMOATE 25 MG CAPSULE (FP) PO SCH ×5 (06:18→21:48)
[2020-10-20] MEDS: chlordiazePOXIDE HCL 10 MG CAPSULE PO SCH ×4 (06:18→22:18)
[2020-10-20] MEDS: GABAPENTIN 300 MG CAPSULE PO SCH ×3 (06:18→21:48)
[2020-10-20] MEDS: amLODIPine BESYLATE 5 MG TABLET (FP) PO SCH (10:30)
[2020-10-20] MEDS: METHOCARBAMOL 500 MG TABLET PO PRN (10:30)
[2020-10-20] MEDS: ESCITALOPRAM OXALATE 20 MG TABLET PO SCH (10:30)
[2020-10-20] MEDS: PRENATAL VITAMINS W/ FOLIC ACID TABLET (FP) PO SCH (10:30)
[2020-10-20] MEDS: THIAMINE HCL 100 MG TABLET (FP) PO SCH (21:48)
[2020-10-20] MEDS: MELATONIN 5 MG TABLETS PO SCH (21:48)
[2020-10-20] MEDS: QUEtiapine FUMARATE 100 MG TABLET (FP) PO SCH (21:48)
[2020-10-21] MEDS: chlordiazePOXIDE HCL 10 MG CAPSULE PO SCH ×2 (06:21→17:09)
[2020-10-21] MEDS: hydrOXYzine PAMOATE 25 MG CAPSULE (FP) PO SCH ×5 (06:21→22:19)
[2020-10-21] MEDS: GABAPENTIN 300 MG CAPSULE PO SCH ×3 (06:21→22:19)
[2020-10-21] MEDS: METHOCARBAMOL 500 MG TABLET PO PRN (10:11)
[2020-10-21] MEDS: ESCITALOPRAM OXALATE 20 MG TABLET PO SCH (10:11)
[2020-10-21] MEDS: amLODIPine BESYLATE 5 MG TABLET (FP) PO SCH (10:11)
[2020-10-21] MEDS: PRENATAL VITAMINS W/ FOLIC ACID TABLET (FP) PO SCH (10:11)
[2020-10-21] MEDS ORDERED: chlordiazePOXIDE HCL 10 MG CAPSULE PO ONE (14:00)
[2020-10-21] MEDS: BACITRACIN 0.9 GM PACKET TP SCH ×2 (14:08→22:18)
[2020-10-21] MEDS: MELATONIN 5 MG TABLETS PO SCH (22:19)
[2020-10-21] MEDS: THIAMINE HCL 100 MG TABLET (FP) PO SCH (22:19)
[2020-10-21] MEDS: QUEtiapine FUMARATE 100 MG TABLET (FP) PO SCH (22:19)
[2020-10-22] MEDS ORDERED: chlordiazePOXIDE HCL 10 MG CAPSULE PO ONE ×2 (05:00→14:00)
[2020-10-22] MEDS: hydrOXYzine PAMOATE 25 MG CAPSULE (FP) PO SCH ×5 (05:40→22:19)
[2020-10-22] MEDS: GABAPENTIN 300 MG CAPSULE PO SCH ×3 (05:40→22:19)
[2020-10-22] MEDS: BACITRACIN 0.9 GM PACKET TP SCH ×2 (10:27→22:19)
[2020-10-22] MEDS: amLODIPine BESYLATE 10 MG TABLET (FP) PO SCH (10:28)
[2020-10-22] MEDS: PRENATAL VITAMINS W/ FOLIC ACID TABLET (FP) PO SCH (10:28)
[2020-10-22] MEDS: ESCITALOPRAM OXALATE 20 MG TABLET PO SCH (10:28)
[2020-10-22] MEDS: QUEtiapine FUMARATE 100 MG TABLET (FP) PO SCH (22:19)
[2020-10-22] MEDS: THIAMINE HCL 100 MG TABLET (FP) PO SCH (22:19)
[2020-10-22] MEDS: MELATONIN 5 MG TABLETS PO SCH (22:19)
[2020-10-23] MEDS: GABAPENTIN 300 MG CAPSULE PO SCH ×2 (06:01→06:05)
[2020-10-23] MEDS: hydrOXYzine PAMOATE 25 MG CAPSULE (FP) PO SCH ×3 (06:01→09:12)
[2020-10-23] MEDS: ESCITALOPRAM OXALATE 20 MG TABLET PO SCH (09:12)
[2020-10-23] MEDS: PRENATAL VITAMINS W/ FOLIC ACID TABLET (FP) PO SCH (09:12)
[2020-10-23] MEDS: amLODIPine BESYLATE 10 MG TABLET (FP) PO SCH (09:12)
[2020-10-23] MEDS: BACITRACIN 0.9 GM PACKET TP SCH (09:12)
[2020-10-23 09:47] VITALS: BP 129/89; PULSE 99; TEMP 98.1
== END 2020-10-23 09:17 | disposition home or self-care (01) | DRG 897 ==
LOC: YASAS 15:06 → Y6N 21:15
PROVIDERS: ADMIT Allergy & Immunology; ATTEND Allergy & Immunology
PROC: HZ2ZZZZ Detoxification Services for Substance Abuse Treatment (ICD-10-PCS; principal; 2020-10-17)
DX: F10.230 Alcohol dependence with withdrawal, uncomplicated (principal); F14.20 Cocaine dependence, uncomplicated; F19.282 Other psychoactive substance dependence with psychoactive substance-induced sleep disorder; F17.210 Nicotine dependence, cigarettes, uncomplicated; F43.10 Post-traumatic stress disorder, unspecified; F41.9 Anxiety disorder, unspecified; I10 Essential (primary) hypertension; J45.909 Unspecified asthma, uncomplicated; M54.5 Low back pain; G89.29 Other chronic pain; Z96.643 Presence of artificial hip joint, bilateral; S05.12XD Contusion of eyeball and orbital tissues, left eye, subsequent encounter; Y04.2XXD Assault by strike against or bumped into by another person, subsequent encounter; Z88.5 Allergy status to narcotic agent
CPT/HCPCS: 36415; 80053; 85027; 86780; C9803; U0003; U0005

== ENCOUNTER 2021-02-13 11:42 | Inpatient (IN) | payer OTHER ==
[2021-02-13 12:34] VITALS: BMI 29.9
[2021-02-13] MEDS ORDERED: LOPERAMIDE HCL 2 MG CAPSULE PO PRN (15:18)
[2021-02-13] MEDS ORDERED: MAGNESIUM HYDROX 2400MG/30ML ORAL SUSPENSION 30 ML CUP PO PRN (15:18)
[2021-02-13] MEDS ORDERED: ACETAMINOPHEN 325 MG TABLET (FP) PO PRN (15:18)
[2021-02-13] MEDS ORDERED: MAGNESIUM CITRATE 300 ML BOTTLE PO PRN (15:18)
[2021-02-13] MEDS ORDERED: P-EPHED 60MG/TRIPROLIDI 2.5MG TABLET PO PRN (15:18)
[2021-02-13] MEDS ORDERED: NICOTINE 10 MG CARTRIDGE (INHALER) IH PRN (15:18)
[2021-02-13] MEDS ORDERED: guaiFENesin 200 MG/10 ML 10 ML UNIT-DOSE CUPS PO PRN (15:18)
[2021-02-13] MEDS ORDERED: MAG HYDROX/AL HYDROX/SIMETH 30 ML UNIT-DOSE CUP PO PRN (15:18)
[2021-02-13] MEDS ORDERED: ALBUTEROL SO4 HFA INHALER IH PRN (16:09)
[2021-02-13] MEDS ORDERED: QUEtiapine FUMARATE 100 MG TABLET (FP) PO ONE (16:12)
[2021-02-13] MEDS: hydrOXYzine PAMOATE 25 MG CAPSULE (FP) PO PRN ×2 (17:19→21:22)
[2021-02-13] MEDS: GABAPENTIN 400 MG CAPSULE PO SCH ×2 (17:19→21:22)
[2021-02-13] MEDS ORDERED: TUBERCULIN PPD 5 TU/0.1ML VIAL ID ONE (17:22)
[2021-02-13] MEDS: MELATONIN 5 MG TABLETS PO SCH (21:22)
[2021-02-13] MEDS: METHOCARBAMOL 500 MG TABLET PO PRN (21:22)
[2021-02-13] MEDS: QUEtiapine FUMARATE 100 MG TABLET (FP) PO SCH (21:23)
[2021-02-13] MEDS: THIAMINE HCL 100 MG TABLET (FP) PO SCH (21:24)
[2021-02-13] MEDS ORDERED: METHOCARBAMOL 500 MG TABLET PO SCH (22:00)
[2021-02-14] MEDS: GABAPENTIN 400 MG CAPSULE PO SCH ×3 (06:21→21:24)
[2021-02-14] MEDS ORDERED: ESCITALOPRAM OXALATE 10 MG TABLET PO SCH (10:00)
[2021-02-14 10:20] LABS: HEMATOCRIT 38.9 % (35.4-49); HEMOGLOBIN 13.5 GM/dL (11.7-16.9); MCH 31.6 pg (25.7-33.7); MCHC 34.7 g/dl (32.0-35.9); MEAN CELL VOLUME 90.9 fl (80-96); MEAN PLT VOLUME 8.8 fl (7.5-11.1); PLATELET COUNT 228 10^3/uL (134-434); RBC 4.28 M/mm3 (4.00-5.60); RDW 13.5 % (11.9-15.9)
[2021-02-14 10:30] LABS: ALBUMIN 3.5 g/dl (3.4-5.0); BLOOD UREA NITROGEN 18.7 mg/dL (7-18)
[2021-02-14 10:31] LABS: CALCIUM 8.7 mg/dL (8.5-10.1); CREATININE 0.7 mg/dL (0.55-1.3)
[2021-02-14 10:33] LABS: BILIRUBIN,TOTAL 0.7 mg/dL (0.2-1); TOT PROT 6.5 g/dl (6.4-8.2)
[2021-02-14] MEDS: amLODIPine BESYLATE 5 MG TABLET (FP) PO SCH (10:43)
[2021-02-14] MEDS: METHOCARBAMOL 500 MG TABLET PO PRN ×2 (10:43→13:20)
[2021-02-14] MEDS: PRENATAL VITAMINS W/ FOLIC ACID TABLET (FP) PO SCH (10:43)
[2021-02-14] MEDS: ESCITALOPRAM OXALATE 10 MG TABLET PO SCH (10:43)
[2021-02-14] MEDS: hydrOXYzine PAMOATE 25 MG CAPSULE (FP) PO PRN ×3 (13:20→21:24)
[2021-02-14] MEDS: IBUPROFEN 400 MG TABLET (FP) PO PRN (13:20)
[2021-02-14] MEDS ORDERED: ESCITALOPRAM OXALATE 10 MG TABLET PO ONE (16:10)
[2021-02-14] MEDS: MELATONIN 5 MG TABLETS PO SCH (21:24)
[2021-02-14] MEDS: QUEtiapine FUMARATE 100 MG TABLET (FP) PO SCH (21:24)
[2021-02-14] MEDS: THIAMINE HCL 100 MG TABLET (FP) PO SCH (21:24)
[2021-02-15] MEDS: GABAPENTIN 400 MG CAPSULE PO SCH ×3 (06:25→21:17)
[2021-02-15] MEDS: METHOCARBAMOL 500 MG TABLET PO PRN ×3 (06:25→21:17)
[2021-02-15] MEDS: IBUPROFEN 400 MG TABLET (FP) PO PRN ×2 (07:42→16:31)
[2021-02-15] MEDS: amLODIPine BESYLATE 5 MG TABLET (FP) PO SCH (10:01)
[2021-02-15] MEDS: ESCITALOPRAM OXALATE 10 MG TABLET PO SCH (10:01)
[2021-02-15] MEDS: PRENATAL VITAMINS W/ FOLIC ACID TABLET (FP) PO SCH (10:01)
[2021-02-15] MEDS: hydrOXYzine PAMOATE 25 MG CAPSULE (FP) PO PRN ×2 (16:31→21:17)
[2021-02-15] MEDS: MELATONIN 5 MG TABLETS PO SCH (21:16)
[2021-02-15] MEDS: QUEtiapine FUMARATE 100 MG TABLET (FP) PO SCH (21:16)
[2021-02-15] MEDS: THIAMINE HCL 100 MG TABLET (FP) PO SCH (21:16)
[2021-02-16] MEDS: GABAPENTIN 400 MG CAPSULE PO SCH ×3 (06:36→21:18)
[2021-02-16] MEDS: METHOCARBAMOL 500 MG TABLET PO PRN ×2 (06:36→21:18)
[2021-02-16] MEDS: IBUPROFEN 400 MG TABLET (FP) PO PRN ×2 (06:36→22:33)
[2021-02-16] MEDS: ESCITALOPRAM OXALATE 10 MG TABLET PO SCH (10:41)
[2021-02-16] MEDS: PRENATAL VITAMINS W/ FOLIC ACID TABLET (FP) PO SCH (10:41)
[2021-02-16] MEDS: amLODIPine BESYLATE 5 MG TABLET (FP) PO SCH (10:41)
[2021-02-16] MEDS: hydrOXYzine PAMOATE 25 MG CAPSULE (FP) PO PRN ×2 (10:42→19:39)
[2021-02-16] MEDS: MELATONIN 5 MG TABLETS PO SCH (21:18)
[2021-02-16] MEDS: THIAMINE HCL 100 MG TABLET (FP) PO SCH (21:18)
[2021-02-16] MEDS: QUEtiapine FUMARATE 100 MG TABLET (FP) PO SCH (21:18)
[2021-02-17] MEDS: IBUPROFEN 400 MG TABLET (FP) PO PRN ×2 (06:37→18:40)
[2021-02-17] MEDS: GABAPENTIN 400 MG CAPSULE PO SCH ×3 (06:37→21:15)
[2021-02-17] MEDS: METHOCARBAMOL 500 MG TABLET PO PRN ×2 (06:38→21:15)
[2021-02-17] MEDS ORDERED: COLLOIDAL OATMEAL 1 BAR EACH TP PRN (09:18)
[2021-02-17] MEDS: amLODIPine BESYLATE 5 MG TABLET (FP) PO SCH (09:36)
[2021-02-17] MEDS: ESCITALOPRAM OXALATE 10 MG TABLET PO SCH (09:36)
[2021-02-17] MEDS: PRENATAL VITAMINS W/ FOLIC ACID TABLET (FP) PO SCH (09:36)
[2021-02-17] MEDS ORDERED: HYDROCORTISONE 0.5% TOPICAL OINTMENT TUBE TP SCH (10:00)
[2021-02-17] MEDS: BACITRACIN 0.9 GM PACKET TP SCH ×2 (13:34→21:15)
[2021-02-17] MEDS: AMMONIUM LACTATE 12% LOTION 225 GM BOTTLE TP SCH ×2 (13:34→21:15)
[2021-02-17] MEDS: LIDOCAINE 5% TOPICAL PATCH TP SCH (13:34)
[2021-02-17] MEDS: HYDROCORTISONE 0.5% TOPICAL CREAM 30 GM TUBE TP SCH ×2 (13:38→21:16)
[2021-02-17] MEDS: hydrOXYzine PAMOATE 50 MG CAPSULE (FP) PO PRN (18:40)
[2021-02-17] MEDS: MELATONIN 5 MG TABLETS PO SCH (21:15)
[2021-02-17] MEDS: QUEtiapine FUMARATE 100 MG TABLET (FP) PO SCH (21:15)
[2021-02-17] MEDS: THIAMINE HCL 100 MG TABLET (FP) PO SCH (21:15)
[2021-02-17] MEDS: LIDOCAINE PATCH REMOVAL MC SCH (21:16)
[2021-02-18] MEDS: GABAPENTIN 400 MG CAPSULE PO SCH ×3 (06:18→21:29)
[2021-02-18] MEDS: IBUPROFEN 400 MG TABLET (FP) PO PRN (06:18)
[2021-02-18] MEDS: METHOCARBAMOL 500 MG TABLET PO PRN ×2 (06:18→19:32)
[2021-02-18] MEDS: amLODIPine BESYLATE 5 MG TABLET (FP) PO SCH (10:12)
[2021-02-18] MEDS: AMMONIUM LACTATE 12% LOTION 225 GM BOTTLE TP SCH ×2 (10:12→21:30)
[2021-02-18] MEDS: BACITRACIN 0.9 GM PACKET TP SCH ×2 (10:12→21:29)
[2021-02-18] MEDS: LIDOCAINE 5% TOPICAL PATCH TP SCH (10:12)
[2021-02-18] MEDS: ESCITALOPRAM OXALATE 10 MG TABLET PO SCH (10:12)
[2021-02-18] MEDS: PRENATAL VITAMINS W/ FOLIC ACID TABLET (FP) PO SCH (10:13)
[2021-02-18] MEDS: HYDROCORTISONE 0.5% TOPICAL CREAM 30 GM TUBE TP SCH ×2 (10:14→21:30)
[2021-02-18] MEDS: hydrOXYzine PAMOATE 50 MG CAPSULE (FP) PO PRN (13:17)
[2021-02-18] MEDS: MELATONIN 5 MG TABLETS PO SCH (21:29)
[2021-02-18] MEDS: QUEtiapine FUMARATE 100 MG TABLET (FP) PO SCH (21:29)
[2021-02-18] MEDS: THIAMINE HCL 100 MG TABLET (FP) PO SCH (21:30)
[2021-02-18] MEDS: LIDOCAINE PATCH REMOVAL MC SCH (21:30)
[2021-02-19] MEDS: GABAPENTIN 400 MG CAPSULE PO SCH ×3 (06:54→21:04)
[2021-02-19] MEDS: METHOCARBAMOL 500 MG TABLET PO PRN ×4 (06:54→21:04)
[2021-02-19] MEDS: IBUPROFEN 400 MG TABLET (FP) PO PRN (06:54)
[2021-02-19 07:08] VITALS: TEMP 97.9
[2021-02-19] MEDS: AMMONIUM LACTATE 12% LOTION 225 GM BOTTLE TP SCH ×2 (10:36→21:05)
[2021-02-19] MEDS: ESCITALOPRAM OXALATE 10 MG TABLET PO SCH (10:36)
[2021-02-19] MEDS: PRENATAL VITAMINS W/ FOLIC ACID TABLET (FP) PO SCH (10:36)
[2021-02-19] MEDS: hydrOXYzine PAMOATE 50 MG CAPSULE (FP) PO PRN (10:36)
[2021-02-19] MEDS: amLODIPine BESYLATE 5 MG TABLET (FP) PO SCH (10:36)
[2021-02-19] MEDS: HYDROCORTISONE 0.5% TOPICAL CREAM 30 GM TUBE TP SCH ×2 (10:36→21:05)
[2021-02-19] MEDS: BACITRACIN 0.9 GM PACKET TP SCH ×2 (10:36→21:04)
[2021-02-19] MEDS: LIDOCAINE 5% TOPICAL PATCH TP SCH (10:37)
[2021-02-19] MEDS: QUEtiapine FUMARATE 100 MG TABLET (FP) PO SCH (21:04)
[2021-02-19] MEDS: THIAMINE HCL 100 MG TABLET (FP) PO SCH (21:04)
[2021-02-19] MEDS: MELATONIN 5 MG TABLETS PO SCH (21:05)
[2021-02-19] MEDS: LIDOCAINE PATCH REMOVAL MC SCH (21:05)
[2021-02-20] MEDS: GABAPENTIN 400 MG CAPSULE PO SCH (06:41)
[2021-02-20] MEDS: METHOCARBAMOL 500 MG TABLET PO PRN ×2 (06:41→09:22)
[2021-02-20] MEDS: IBUPROFEN 400 MG TABLET (FP) PO PRN (06:41)
[2021-02-20 07:04] VITALS: BP 140/81; PULSE 56
[2021-02-20] MEDS: HYDROCORTISONE 0.5% TOPICAL CREAM 30 GM TUBE TP SCH (09:21)
[2021-02-20] MEDS: LIDOCAINE 5% TOPICAL PATCH TP SCH (09:21)
[2021-02-20] MEDS: BACITRACIN 0.9 GM PACKET TP SCH (09:21)
[2021-02-20] MEDS: PRENATAL VITAMINS W/ FOLIC ACID TABLET (FP) PO SCH (09:22)
[2021-02-20] MEDS: amLODIPine BESYLATE 5 MG TABLET (FP) PO SCH (09:22)
[2021-02-20] MEDS: ESCITALOPRAM OXALATE 10 MG TABLET PO SCH (09:22)
[2021-02-20] MEDS: hydrOXYzine PAMOATE 50 MG CAPSULE (FP) PO PRN (09:22)
[2021-02-20] MEDS: AMMONIUM LACTATE 12% LOTION 225 GM BOTTLE TP SCH (09:22)
== END 2021-02-20 09:48 | disposition home or self-care (01) | DRG 895 ==
LOC: YASAS 11:42 → Y3W 15:18
PROVIDERS: ADMIT Allergy & Immunology; ATTEND Allergy & Immunology
PROC: HZ42ZZZ Group Counseling for Substance Abuse Treatment, Cognitive-Behavioral (ICD-10-PCS; principal; 2021-02-13)
DX: F10.20 Alcohol dependence, uncomplicated (principal); F41.9 Anxiety disorder, unspecified; F32.9 Major depressive disorder, single episode, unspecified; F43.10 Post-traumatic stress disorder, unspecified; I10 Essential (primary) hypertension; J45.909 Unspecified asthma, uncomplicated; L30.9 Dermatitis, unspecified; Z96.643 Presence of artificial hip joint, bilateral; Z87.891 Personal history of nicotine dependence; Z88.5 Allergy status to narcotic agent
CPT/HCPCS: 36415; 80053; 85027; 86780; C9803; U0003; U0005

== ENCOUNTER 2021-04-16 12:25 | Inpatient (IN) | payer OTHER ==
[2021-04-16] MEDS ORDERED: guaiFENesin 200 MG/10 ML 10 ML UNIT-DOSE CUPS PO PRN (13:21)
[2021-04-16] MEDS ORDERED: MAG HYDROX/AL HYDROX/SIMETH 30 ML UNIT-DOSE CUP PO PRN (13:21)
[2021-04-16] MEDS ORDERED: P-EPHED 60MG/TRIPROLIDI 2.5MG TABLET PO PRN (13:21)
[2021-04-16] MEDS ORDERED: LOPERAMIDE HCL 2 MG CAPSULE PO PRN (13:21)
[2021-04-16] MEDS ORDERED: MAGNESIUM HYDROX 2400MG/30ML ORAL SUSPENSION 30 ML CUP PO PRN (13:21)
[2021-04-16] MEDS ORDERED: MAGNESIUM CITRATE 300 ML BOTTLE PO PRN (13:21)
[2021-04-16] MEDS ORDERED: IBUPROFEN 400 MG TABLET (FP) PO PRN (13:21)
[2021-04-16] MEDS ORDERED: ALBUTEROL SO4 HFA INHALER IH PRN (13:28)
[2021-04-16 15:12] VITALS: BMI 32.8
[2021-04-16] MEDS: hydrOXYzine PAMOATE 25 MG CAPSULE (FP) PO SCH ×3 (16:40→21:28)
[2021-04-16] MEDS: PRENATAL VITAMINS W/ FOLIC ACID TABLET (FP) PO SCH (16:40)
[2021-04-16] MEDS: NICOTINE 7 MG/24 HOURS TOPICAL PATCH TD SCH (16:41)
[2021-04-16] MEDS ORDERED: PATIENT'S OWN MEDICATION (NON-FORMULARY) (Hydroxyzine Hcl [Hydroxyzine Hcl] 50 MG Tablet) PO PRN (16:43)
[2021-04-16] MEDS: ESCITALOPRAM OXALATE 10 MG TABLET PO SCH (17:45)
[2021-04-16 17:58] LABS: HEMATOCRIT 39.5 % (35.4-49); HEMOGLOBIN 13.3 GM/dL (11.7-16.9); MCHC 33.6 g/dl (32.0-35.9); MEAN CELL VOLUME 92.2 fl (80-96); MEAN PLT VOLUME 8.6 fl (7.5-11.1); PLATELET COUNT 206 10^3/uL (134-434); RBC 4.28 M/mm3 (4.00-5.60); RDW 15.7 % (11.9-15.9); WHITE BLOOD COUNT 7.7 K/mm3 (4.0-10.0)
[2021-04-16 18:05] LABS: ALBUMIN 3.7 g/dl (3.4-5.0); BLOOD UREA NITROGEN 10.5 mg/dL (7-18); CALCIUM 8.9 mg/dL (8.5-10.1)
[2021-04-16 18:09] LABS: CREATININE 1.2 mg/dL (0.55-1.3)
[2021-04-16 18:11] LABS: BILIRUBIN,TOTAL 0.3 mg/dL (0.2-1); TOT PROT 7.3 g/dl (6.4-8.2)
[2021-04-16 18:26] LABS: SYPHILIS W/ RPR CONF NON-REACTIVE (NONREACTIVE)
[2021-04-16 20:06] LABS: URINE APPEARANCE CLEAR; URINE BILIRUBIN NEGATIVE (NEGATIVE); URINE COLOR YELLOW; URINE GLUCOSE (UA) NEGATIVE (NEGATIVE); URINE KETONE NEGATIVE (NEGATIVE); URINE LEUK ESTERASE NEGATIVE (NEGATIVE); URINE NITRITE NEGATIVE (NEGATIVE); URINE PROTEIN NEGATIVE (NEGATIVE); URINE UROBILINOGEN 0.2 mg/dL (0.2-1.0)
[2021-04-16] MEDS: THIAMINE HCL 100 MG TABLET (FP) PO SCH (21:27)
[2021-04-16] MEDS: MELATONIN 5 MG TABLETS PO SCH (21:27)
[2021-04-16] MEDS: GABAPENTIN 400 MG CAPSULE PO SCH (21:28)
[2021-04-16] MEDS ORDERED: QUEtiapine FUMARATE 100 MG TABLET (FP) PO SCH (22:00)
[2021-04-17] MEDS: hydrOXYzine PAMOATE 25 MG CAPSULE (FP) PO SCH ×5 (06:31→21:10)
[2021-04-17] MEDS: GABAPENTIN 400 MG CAPSULE PO SCH ×3 (06:31→21:10)
[2021-04-17] MEDS: PRENATAL VITAMINS W/ FOLIC ACID TABLET (FP) PO SCH (10:07)
[2021-04-17] MEDS: NICOTINE 7 MG/24 HOURS TOPICAL PATCH TD SCH (10:07)
[2021-04-17] MEDS: amLODIPine BESYLATE 5 MG TABLET (FP) PO SCH (10:07)
[2021-04-17] MEDS: ESCITALOPRAM OXALATE 10 MG TABLET PO SCH ×3 (10:07→11:25)
[2021-04-17] MEDS ORDERED: FLU VACC QS2021-22(6MOS UP)/PF 60 MCG/0.5 ML SYRINGE IM ONE (12:00)
[2021-04-17] MEDS: NICOTINE 10 MG CARTRIDGE (INHALER) IH PRN (16:43)
[2021-04-17] MEDS: ACETAMINOPHEN 325 MG TABLET (FP) PO PRN (16:43)
[2021-04-17] MEDS: MELATONIN 5 MG TABLETS PO SCH (21:10)
[2021-04-17] MEDS: THIAMINE HCL 100 MG TABLET (FP) PO SCH (21:10)
[2021-04-17] MEDS: QUEtiapine FUMARATE 50 MG TABLET PO SCH (21:11)
[2021-04-18] MEDS: GABAPENTIN 400 MG CAPSULE PO SCH ×3 (06:15→21:34)
[2021-04-18] MEDS: hydrOXYzine PAMOATE 25 MG CAPSULE (FP) PO SCH ×5 (06:15→21:34)
[2021-04-18] MEDS: amLODIPine BESYLATE 5 MG TABLET (FP) PO SCH (10:06)
[2021-04-18] MEDS: PRENATAL VITAMINS W/ FOLIC ACID TABLET (FP) PO SCH (10:06)
[2021-04-18] MEDS: ESCITALOPRAM OXALATE 10 MG TABLET PO SCH (10:07)
[2021-04-18] MEDS: NICOTINE 7 MG/24 HOURS TOPICAL PATCH TD SCH (10:07)
[2021-04-18] MEDS: NICOTINE 10 MG CARTRIDGE (INHALER) IH PRN ×2 (12:03→17:51)
[2021-04-18] MEDS: AMMONIUM LACTATE 12% LOTION 225 GM BOTTLE TP SCH ×2 (13:14→21:34)
[2021-04-18] MEDS: MINERAL OIL/PETROLAT/WATER TOPICAL CREAM 113 GM JAR TP SCH ×2 (13:15→21:34)
[2021-04-18] MEDS ORDERED: JANSSEN COVID-19 VAC,AD26/PF 0.5 ML IM ONE (14:00)
[2021-04-18] MEDS: MELATONIN 5 MG TABLETS PO SCH (21:34)
[2021-04-18] MEDS: THIAMINE HCL 100 MG TABLET (FP) PO SCH (21:34)
[2021-04-18] MEDS: QUEtiapine FUMARATE 50 MG TABLET PO SCH (21:34)
[2021-04-19] MEDS: GABAPENTIN 400 MG CAPSULE PO SCH ×3 (06:55→21:21)
[2021-04-19] MEDS: hydrOXYzine PAMOATE 25 MG CAPSULE (FP) PO SCH ×5 (06:55→21:22)
[2021-04-19] MEDS: ESCITALOPRAM OXALATE 10 MG TABLET PO SCH (10:06)
[2021-04-19] MEDS: amLODIPine BESYLATE 5 MG TABLET (FP) PO SCH (10:06)
[2021-04-19] MEDS: PRENATAL VITAMINS W/ FOLIC ACID TABLET (FP) PO SCH (10:06)
[2021-04-19] MEDS: NICOTINE 7 MG/24 HOURS TOPICAL PATCH TD SCH (10:07)
[2021-04-19] MEDS: MINERAL OIL/PETROLAT/WATER TOPICAL CREAM 113 GM JAR TP SCH ×2 (10:07→21:22)
[2021-04-19] MEDS: AMMONIUM LACTATE 12% LOTION 225 GM BOTTLE TP SCH ×2 (10:07→21:22)
[2021-04-19] MEDS: NICOTINE 10 MG CARTRIDGE (INHALER) IH PRN ×2 (10:07→19:13)
[2021-04-19] MEDS: ACETAMINOPHEN 325 MG TABLET (FP) PO PRN (17:22)
[2021-04-19] MEDS: QUEtiapine FUMARATE 50 MG TABLET PO SCH (21:21)
[2021-04-19] MEDS: THIAMINE HCL 100 MG TABLET (FP) PO SCH (21:22)
[2021-04-19] MEDS: MELATONIN 5 MG TABLETS PO SCH (21:22)
[2021-04-20] MEDS: hydrOXYzine PAMOATE 25 MG CAPSULE (FP) PO SCH ×5 (06:34→21:28)
[2021-04-20] MEDS: GABAPENTIN 400 MG CAPSULE PO SCH ×3 (06:34→21:28)
[2021-04-20] MEDS: amLODIPine BESYLATE 5 MG TABLET (FP) PO SCH (09:51)
[2021-04-20] MEDS: PRENATAL VITAMINS W/ FOLIC ACID TABLET (FP) PO SCH (09:51)
[2021-04-20] MEDS: AMMONIUM LACTATE 12% LOTION 225 GM BOTTLE TP SCH ×2 (09:52→21:29)
[2021-04-20] MEDS: NICOTINE 10 MG CARTRIDGE (INHALER) IH PRN ×2 (09:52→21:29)
[2021-04-20] MEDS: MINERAL OIL/PETROLAT/WATER TOPICAL CREAM 113 GM JAR TP SCH ×2 (09:52→21:30)
[2021-04-20] MEDS: NICOTINE 7 MG/24 HOURS TOPICAL PATCH TD SCH (09:52)
[2021-04-20] MEDS: ESCITALOPRAM OXALATE 10 MG TABLET PO SCH (09:52)
[2021-04-20] MEDS: QUEtiapine FUMARATE 50 MG TABLET PO SCH (21:28)
[2021-04-20] MEDS: MELATONIN 5 MG TABLETS PO SCH (21:28)
[2021-04-20] MEDS: THIAMINE HCL 100 MG TABLET (FP) PO SCH (21:28)
[2021-04-21] MEDS: GABAPENTIN 400 MG CAPSULE PO SCH ×3 (07:04→21:18)
[2021-04-21] MEDS: hydrOXYzine PAMOATE 25 MG CAPSULE (FP) PO SCH ×5 (07:04→21:17)
[2021-04-21] MEDS: NICOTINE 10 MG CARTRIDGE (INHALER) IH PRN (10:09)
[2021-04-21] MEDS: PRENATAL VITAMINS W/ FOLIC ACID TABLET (FP) PO SCH (10:09)
[2021-04-21] MEDS: amLODIPine BESYLATE 5 MG TABLET (FP) PO SCH (10:09)
[2021-04-21] MEDS: ESCITALOPRAM OXALATE 10 MG TABLET PO SCH (10:09)
[2021-04-21] MEDS: NICOTINE 7 MG/24 HOURS TOPICAL PATCH TD SCH (10:09)
[2021-04-21] MEDS: AMMONIUM LACTATE 12% LOTION 225 GM BOTTLE TP SCH ×2 (10:16→21:20)
[2021-04-21] MEDS: MINERAL OIL/PETROLAT/WATER TOPICAL CREAM 113 GM JAR TP SCH ×2 (10:16→21:20)
[2021-04-21] MEDS: QUEtiapine FUMARATE 50 MG TABLET PO SCH (21:18)
[2021-04-21] MEDS: THIAMINE HCL 100 MG TABLET (FP) PO SCH (21:19)
[2021-04-21] MEDS: MELATONIN 5 MG TABLETS PO SCH (21:19)
[2021-04-22] MEDS: GABAPENTIN 400 MG CAPSULE PO SCH ×3 (06:40→21:17)
[2021-04-22] MEDS: hydrOXYzine PAMOATE 25 MG CAPSULE (FP) PO SCH ×5 (06:41→21:17)
[2021-04-22] MEDS: AMMONIUM LACTATE 12% LOTION 225 GM BOTTLE TP SCH ×2 (09:57→21:18)
[2021-04-22] MEDS: PRENATAL VITAMINS W/ FOLIC ACID TABLET (FP) PO SCH (09:57)
[2021-04-22] MEDS: amLODIPine BESYLATE 5 MG TABLET (FP) PO SCH (09:57)
[2021-04-22] MEDS: ESCITALOPRAM OXALATE 10 MG TABLET PO SCH (09:57)
[2021-04-22] MEDS: MINERAL OIL/PETROLAT/WATER TOPICAL CREAM 113 GM JAR TP SCH ×2 (09:57→21:18)
[2021-04-22] MEDS: NICOTINE 7 MG/24 HOURS TOPICAL PATCH TD SCH (09:58)
[2021-04-22] MEDS: NICOTINE 10 MG CARTRIDGE (INHALER) IH PRN (09:58)
[2021-04-22] MEDS: QUEtiapine FUMARATE 50 MG TABLET PO SCH (21:17)
[2021-04-22] MEDS: THIAMINE HCL 100 MG TABLET (FP) PO SCH (21:17)
[2021-04-22] MEDS: MELATONIN 5 MG TABLETS PO SCH (21:17)
[2021-04-23] MEDS: GABAPENTIN 400 MG CAPSULE PO SCH (06:32)
[2021-04-23] MEDS: hydrOXYzine PAMOATE 25 MG CAPSULE (FP) PO SCH ×2 (06:32→09:10)
[2021-04-23 06:57] VITALS: TEMP 96.3
[2021-04-23] MEDS: PRENATAL VITAMINS W/ FOLIC ACID TABLET (FP) PO SCH (09:10)
[2021-04-23] MEDS: ESCITALOPRAM OXALATE 10 MG TABLET PO SCH (09:10)
[2021-04-23] MEDS: amLODIPine BESYLATE 5 MG TABLET (FP) PO SCH (09:10)
[2021-04-23] MEDS: AMMONIUM LACTATE 12% LOTION 225 GM BOTTLE TP SCH (09:11)
[2021-04-23] MEDS: NICOTINE 7 MG/24 HOURS TOPICAL PATCH TD SCH (09:11)
[2021-04-23 09:33] VITALS: BP 149/71; PULSE 69
== END 2021-04-23 09:57 | disposition home or self-care (01) | DRG 895 ==
LOC: YASAS 12:25 → Y3W 15:29
PROVIDERS: ADMIT Allergy & Immunology; ATTEND Allergy & Immunology
PROC: HZ42ZZZ Group Counseling for Substance Abuse Treatment, Cognitive-Behavioral (ICD-10-PCS; principal; 2021-04-16)
DX: F10.20 Alcohol dependence, uncomplicated (principal); F14.20 Cocaine dependence, uncomplicated; F10.282 Alcohol dependence with alcohol-induced sleep disorder; F10.280 Alcohol dependence with alcohol-induced anxiety disorder; F41.8 Other specified anxiety disorders; F32.A Depression, unspecified; I10 Essential (primary) hypertension; J45.909 Unspecified asthma, uncomplicated; L85.3 Xerosis cutis; M54.50 Low back pain, unspecified; G89.29 Other chronic pain; H55.00 Unspecified nystagmus; Z96.643 Presence of artificial hip joint, bilateral; Z86.59 Personal history of other mental and behavioral disorders; Z88.5 Allergy status to narcotic agent; Z56.0 Unemployment, unspecified
CPT/HCPCS: 0031A; 36415; 80053; 81003; 82962; 85027; 86780; 86803; 87811; 91303; C9803; U0003; U0005

== ENCOUNTER 2021-10-23 20:02 | Inpatient (IN) | payer OTHER ==
[2021-10-23 20:39] VITALS: BMI 30.7
[2021-10-24] MEDS ORDERED: DICYCLOMINE HCL 10 MG CAPSULE PO PRN (11:20)
[2021-10-24] MEDS ORDERED: MAG HYDROX/AL HYDROX/SIMETH 30 ML UNIT-DOSE CUP PO PRN (11:20)
[2021-10-24] MEDS ORDERED: BISMUTH SUBSALICYLATE 262 MG/15 ML BTL PO PRN (11:20)
[2021-10-24] MEDS ORDERED: ACETAMINOPHEN 325 MG TABLET (FP) PO PRN (11:20)
[2021-10-24] MEDS ORDERED: LOPERAMIDE HCL 2 MG CAPSULE PO PRN (11:20)
[2021-10-24] MEDS ORDERED: IBUPROFEN 400 MG TABLET (FP) PO PRN (11:20)
[2021-10-24] MEDS ORDERED: BENZOCAINE/MENTHOL (CHLORASEPTIC ) LOZENGE MM PRN (11:20)
[2021-10-24] MEDS ORDERED: NICOTINE 10 MG CARTRIDGE (INHALER) IH PRN (11:20)
[2021-10-24] MEDS ORDERED: ONDANSETRON *ODT* 4 MG TABLET SL PRN (11:20)
[2021-10-24] MEDS ORDERED: MAGNESIUM CITRATE 300 ML BOTTLE PO PRN (11:20)
[2021-10-24] MEDS ORDERED: MAGNESIUM HYDROX 2400MG/30ML ORAL SUSPENSION 30 ML CUP PO PRN (11:20)
[2021-10-24 14:07] LABS: HEMATOCRIT 42.7 % (35.4-49); HEMOGLOBIN 13.9 GM/dL (11.7-16.9); MCH 30.3 pg (25.7-33.7); MCHC 32.5 g/dl (32.0-35.9); MEAN CELL VOLUME 93.3 fl (80-96); PLATELET COUNT 255 10^3/uL (134-434); RBC 4.57 M/mm3 (4.00-5.60); RDW 14.1 % (11.9-15.9); WHITE BLOOD COUNT 6.6 K/mm3 (4.0-10.0)
[2021-10-24 14:37] LABS: ALBUMIN 3.9 g/dl (3.4-5.0); BLOOD UREA NITROGEN 15.5 mg/dL (7-18)
[2021-10-24 14:40] LABS: CREATININE 0.9 mg/dL (0.55-1.3)
[2021-10-24 14:41] LABS: BILIRUBIN,TOTAL 0.3 mg/dL (0.2-1)
[2021-10-24 14:42] LABS: TOT PROT 7.2 g/dl (6.4-8.2)
[2021-10-24] MEDS: chlordiazePOXIDE HCL 25 MG CAPSULE PO SCH ×3 (15:50→22:18)
[2021-10-24] MEDS: NICOTINE 14 MG/24 HOURS TOPICAL PATCH TD SCH (15:55)
[2021-10-24] MEDS: hydrOXYzine PAMOATE 25 MG CAPSULE (FP) PO SCH ×3 (15:56→22:17)
[2021-10-24] MEDS: PRENATAL VITAMINS W/ FOLIC ACID TABLET (FP) PO SCH (15:56)
[2021-10-24] MEDS: chlordiazePOXIDE HCL 25 MG CAPSULE PO PRN (16:02)
[2021-10-24] MEDS: THIAMINE HCL 100 MG TABLET (FP) PO SCH (22:17)
[2021-10-24] MEDS: MELATONIN 5 MG TABLETS PO SCH (22:17)
[2021-10-25] MEDS: chlordiazePOXIDE HCL 25 MG CAPSULE PO SCH ×4 (07:24→22:15)
[2021-10-25] MEDS: hydrOXYzine PAMOATE 25 MG CAPSULE (FP) PO SCH ×5 (07:25→22:15)
[2021-10-25] MEDS: PRENATAL VITAMINS W/ FOLIC ACID TABLET (FP) PO SCH (10:37)
[2021-10-25] MEDS: NICOTINE 14 MG/24 HOURS TOPICAL PATCH TD SCH (11:11)
[2021-10-25] MEDS: chlordiazePOXIDE HCL 25 MG CAPSULE PO PRN (13:06)
[2021-10-25] MEDS: ACETAMINOPHEN 325 MG TABLET (FP) PO PRN (18:21)
[2021-10-25] MEDS ORDERED: ALBUTEROL SO4 HFA INHALER IH PRN (18:36)
[2021-10-25] MEDS: GABAPENTIN 300 MG CAPSULE PO SCH (22:15)
[2021-10-25] MEDS: QUEtiapine FUMARATE 50 MG TABLET PO SCH (22:15)
[2021-10-25] MEDS: THIAMINE HCL 100 MG TABLET (FP) PO SCH (22:15)
[2021-10-25] MEDS: MELATONIN 5 MG TABLETS PO SCH (22:15)
[2021-10-26] MEDS: hydrOXYzine PAMOATE 25 MG CAPSULE (FP) PO SCH ×5 (06:47→22:04)
[2021-10-26] MEDS: GABAPENTIN 300 MG CAPSULE PO SCH ×3 (06:47→22:02)
[2021-10-26] MEDS: chlordiazePOXIDE HCL 25 MG CAPSULE PO SCH ×4 (06:47→22:04)
[2021-10-26] MEDS: PRENATAL VITAMINS W/ FOLIC ACID TABLET (FP) PO SCH (10:37)
[2021-10-26] MEDS: amLODIPine BESYLATE 5 MG TABLET (FP) PO SCH (10:38)
[2021-10-26] MEDS: NICOTINE 14 MG/24 HOURS TOPICAL PATCH TD SCH (10:38)
[2021-10-26] MEDS: chlordiazePOXIDE HCL 25 MG CAPSULE PO PRN (13:26)
[2021-10-26 14:07] LABS: SARS-CoV-2 NAA Not Detected (Not Detected)
[2021-10-26] MEDS: ACETAMINOPHEN 325 MG TABLET (FP) PO PRN (14:49)
[2021-10-26] MEDS: METHOCARBAMOL 500 MG TABLET PO PRN ×2 (14:49→22:03)
[2021-10-26] MEDS: QUEtiapine FUMARATE 50 MG TABLET PO SCH (22:02)
[2021-10-26] MEDS: THIAMINE HCL 100 MG TABLET (FP) PO SCH (22:03)
[2021-10-26] MEDS: MELATONIN 5 MG TABLETS PO SCH (22:03)
[2021-10-27] MEDS ORDERED: chlordiazePOXIDE HCL 10 MG CAPSULE PO PRN
[2021-10-27] MEDS: GABAPENTIN 300 MG CAPSULE PO SCH (06:16)
[2021-10-27] MEDS: hydrOXYzine PAMOATE 25 MG CAPSULE (FP) PO SCH ×2 (06:16→10:25)
[2021-10-27] MEDS: chlordiazePOXIDE HCL 10 MG CAPSULE PO SCH ×2 (06:16→10:25)
[2021-10-27 09:08] VITALS: BP 104/62; PULSE 68; TEMP 97.1
[2021-10-27] MEDS: amLODIPine BESYLATE 5 MG TABLET (FP) PO SCH (10:25)
[2021-10-27] MEDS: PRENATAL VITAMINS W/ FOLIC ACID TABLET (FP) PO SCH (10:26)
[2021-10-27] MEDS: NICOTINE 14 MG/24 HOURS TOPICAL PATCH TD SCH (10:27)
[2021-10-28] MEDS ORDERED: chlordiazePOXIDE HCL 10 MG CAPSULE PO SCH (05:00)
[2021-10-29] MEDS ORDERED: chlordiazePOXIDE HCL 10 MG CAPSULE PO ONE (05:00)
== END 2021-10-27 12:42 | disposition home or self-care (01) | DRG 897 ==
LOC: YASAS 20:02 → Y3N 10-24 15:00
PROVIDERS: ADMIT Allergy & Immunology; ATTEND Surgery
PROC: HZ2ZZZZ Detoxification Services for Substance Abuse Treatment (ICD-10-PCS; principal; 2021-10-24)
DX: F10.230 Alcohol dependence with withdrawal, uncomplicated (principal); F14.20 Cocaine dependence, uncomplicated; F19.280 Other psychoactive substance dependence with psychoactive substance-induced anxiety disorder; F10.982 Alcohol use, unspecified with alcohol-induced sleep disorder; F43.10 Post-traumatic stress disorder, unspecified; G47.00 Insomnia, unspecified; I10 Essential (primary) hypertension; J45.20 Mild intermittent asthma, uncomplicated; Z96.653 Presence of artificial knee joint, bilateral; Z87.891 Personal history of nicotine dependence
CPT/HCPCS: 36415; 80053; 85027; 86780; C9803-CS; U0003; U0005

== ENCOUNTER 2021-11-05 08:03 | Inpatient (IN) | payer OTHER ==
[2021-11-05] MEDS ORDERED: DICYCLOMINE HCL 10 MG CAPSULE PO PRN (09:59)
[2021-11-05] MEDS ORDERED: IBUPROFEN 400 MG TABLET (FP) PO PRN (09:59)
[2021-11-05] MEDS ORDERED: MAGNESIUM HYDROX 2400MG/30ML ORAL SUSPENSION 30 ML CUP PO PRN (09:59)
[2021-11-05] MEDS ORDERED: LOPERAMIDE HCL 2 MG CAPSULE PO PRN (09:59)
[2021-11-05] MEDS ORDERED: NICOTINE 10 MG CARTRIDGE (INHALER) IH PRN (09:59)
[2021-11-05] MEDS ORDERED: ACETAMINOPHEN 325 MG TABLET (FP) PO PRN ×2 (09:59)
[2021-11-05] MEDS ORDERED: ONDANSETRON *ODT* 4 MG TABLET SL PRN (09:59)
[2021-11-05] MEDS ORDERED: MAGNESIUM CITRATE 300 ML BOTTLE PO PRN (09:59)
[2021-11-05] MEDS ORDERED: MAG HYDROX/AL HYDROX/SIMETH 30 ML UNIT-DOSE CUP PO PRN (09:59)
[2021-11-05] MEDS ORDERED: BENZOCAINE/MENTHOL (CHLORASEPTIC ) LOZENGE MM PRN (09:59)
[2021-11-05] MEDS ORDERED: BISMUTH SUBSALICYLATE 524 MG/30 ML PO PRN (09:59)
[2021-11-05 10:00] VITALS: BMI 31.0
[2021-11-05] MEDS ORDERED: ALBUTEROL SO4 HFA INHALER IH PRN (10:02)
[2021-11-05] MEDS: PRENATAL VITAMINS W/ FOLIC ACID TABLET (FP) PO SCH (10:47)
[2021-11-05] MEDS: chlordiazePOXIDE HCL 25 MG CAPSULE PO SCH ×3 (10:47→22:24)
[2021-11-05] MEDS: hydrOXYzine PAMOATE 25 MG CAPSULE (FP) PO SCH ×4 (10:47→22:24)
[2021-11-05] MEDS: GABAPENTIN 400 MG CAPSULE PO SCH ×2 (14:58→22:24)
[2021-11-05] MEDS: METHOCARBAMOL 500 MG TABLET PO PRN (17:55)
[2021-11-05] MEDS: QUEtiapine FUMARATE 50 MG TABLET PO SCH (22:24)
[2021-11-05] MEDS: MELATONIN 5 MG TABLETS PO SCH (22:24)
[2021-11-05] MEDS: THIAMINE HCL 100 MG TABLET (FP) PO SCH (22:25)
[2021-11-06] MEDS: hydrOXYzine PAMOATE 25 MG CAPSULE (FP) PO SCH ×5 (06:43→22:15)
[2021-11-06] MEDS: chlordiazePOXIDE HCL 25 MG CAPSULE PO SCH ×4 (06:43→22:16)
[2021-11-06] MEDS: GABAPENTIN 400 MG CAPSULE PO SCH ×3 (06:43→22:15)
[2021-11-06 10:22] LABS: HEMATOCRIT 40.2 % (35.4-49); HEMOGLOBIN 13.5 GM/dL (11.7-16.9); MCH 31.5 pg (25.7-33.7); MCHC 33.5 g/dl (32.0-35.9); MEAN CELL VOLUME 94.1 fl (80-96); MEAN PLT VOLUME 8.3 fl (7.5-11.1); PLATELET COUNT 256 10^3/uL (134-434); RBC 4.28 M/mm3 (4.00-5.60); RDW 14.8 % (11.9-15.9); WHITE BLOOD COUNT 5.5 K/mm3 (4.0-10.0)
[2021-11-06] MEDS: PRENATAL VITAMINS W/ FOLIC ACID TABLET (FP) PO SCH (10:23)
[2021-11-06] MEDS: amLODIPine BESYLATE 5 MG TABLET (FP) PO SCH (10:23)
[2021-11-06 10:48] LABS: ALBUMIN 3.4 g/dl (3.4-5.0); BLOOD UREA NITROGEN 20.2 mg/dL (7-18); CALCIUM 9.2 mg/dL (8.5-10.1)
[2021-11-06 10:52] LABS: TOT PROT 6.8 g/dl (6.4-8.2)
[2021-11-06 10:53] LABS: BILIRUBIN,TOTAL 0.8 mg/dL (0.2-1)
[2021-11-06] MEDS: chlordiazePOXIDE HCL 25 MG CAPSULE PO PRN (13:58)
[2021-11-06] MEDS: THIAMINE HCL 100 MG TABLET (FP) PO SCH (22:14)
[2021-11-06] MEDS: MELATONIN 5 MG TABLETS PO SCH (22:14)
[2021-11-06] MEDS: QUEtiapine FUMARATE 50 MG TABLET PO SCH (22:15)
[2021-11-07] MEDS: chlordiazePOXIDE HCL 25 MG CAPSULE PO SCH ×4 (06:15→21:51)
[2021-11-07] MEDS: GABAPENTIN 400 MG CAPSULE PO SCH ×3 (06:16→21:51)
[2021-11-07] MEDS: hydrOXYzine PAMOATE 25 MG CAPSULE (FP) PO SCH ×5 (06:16→21:52)
[2021-11-07] MEDS: amLODIPine BESYLATE 5 MG TABLET (FP) PO SCH (10:47)
[2021-11-07] MEDS: PRENATAL VITAMINS W/ FOLIC ACID TABLET (FP) PO SCH (10:47)
[2021-11-07] MEDS: chlordiazePOXIDE HCL 25 MG CAPSULE PO PRN ×2 (14:02→19:25)
[2021-11-07] MEDS: QUEtiapine FUMARATE 50 MG TABLET PO SCH (21:50)
[2021-11-07] MEDS: THIAMINE HCL 100 MG TABLET (FP) PO SCH (21:51)
[2021-11-07] MEDS: MELATONIN 5 MG TABLETS PO SCH (21:52)
[2021-11-08] MEDS ORDERED: chlordiazePOXIDE HCL 10 MG CAPSULE PO PRN
[2021-11-08] MEDS: chlordiazePOXIDE HCL 10 MG CAPSULE PO SCH ×4 (06:00→22:38)
[2021-11-08] MEDS: hydrOXYzine PAMOATE 25 MG CAPSULE (FP) PO SCH ×5 (06:00→22:36)
[2021-11-08] MEDS: GABAPENTIN 400 MG CAPSULE PO SCH ×3 (06:00→22:36)
[2021-11-08] MEDS: amLODIPine BESYLATE 5 MG TABLET (FP) PO SCH (12:14)
[2021-11-08] MEDS: PRENATAL VITAMINS W/ FOLIC ACID TABLET (FP) PO SCH (12:16)
[2021-11-08] MEDS: METHOCARBAMOL 500 MG TABLET PO PRN ×2 (14:21→22:35)
[2021-11-08] MEDS: MELATONIN 5 MG TABLETS PO SCH (22:35)
[2021-11-08] MEDS: QUEtiapine FUMARATE 50 MG TABLET PO SCH (22:36)
[2021-11-08] MEDS: THIAMINE HCL 100 MG TABLET (FP) PO SCH (22:36)
[2021-11-09] MEDS ORDERED: chlordiazePOXIDE HCL 10 MG CAPSULE PO SCH (05:00)
[2021-11-09] MEDS: hydrOXYzine PAMOATE 25 MG CAPSULE (FP) PO SCH (06:24)
[2021-11-09] MEDS: GABAPENTIN 400 MG CAPSULE PO SCH ×2 (06:24→06:53)
[2021-11-09 06:48] VITALS: PULSE 66
[2021-11-09] MEDS: METHOCARBAMOL 500 MG TABLET PO PRN (06:53)
[2021-11-09 09:54] VITALS: BP 105/58; TEMP 97.5
[2021-11-10] MEDS ORDERED: chlordiazePOXIDE HCL 10 MG CAPSULE PO ONE (05:00)
== END 2021-11-09 11:00 | disposition home or self-care (01) | DRG 897 ==
LOC: YASAS 08:03 → Y3N 09:08
PROVIDERS: ADMIT Allergy & Immunology; ATTEND Surgery
PROC: HZ2ZZZZ Detoxification Services for Substance Abuse Treatment (ICD-10-PCS; principal; 2021-11-05)
DX: F10.230 Alcohol dependence with withdrawal, uncomplicated (principal); F14.20 Cocaine dependence, uncomplicated; F19.24 Other psychoactive substance dependence with psychoactive substance-induced mood disorder; F10.282 Alcohol dependence with alcohol-induced sleep disorder; F41.9 Anxiety disorder, unspecified; G47.00 Insomnia, unspecified; E78.5 Hyperlipidemia, unspecified; I10 Essential (primary) hypertension; J45.20 Mild intermittent asthma, uncomplicated; Z96.643 Presence of artificial hip joint, bilateral; Z88.5 Allergy status to narcotic agent; Z87.891 Personal history of nicotine dependence
CPT/HCPCS: 36415; 80053; 82962; 85027; 86780; C9803-CS; U0003; U0005

== ENCOUNTER 2021-11-21 11:35 | Inpatient (IN) | payer OTHER ==
[2021-11-21 12:05] VITALS: BMI 31.1
[2021-11-21] MEDS ORDERED: IBUPROFEN 600 MG TABLET (FP) PO PRN (14:35)
[2021-11-21] MEDS ORDERED: MAGNESIUM CITRATE 300 ML BOTTLE PO PRN (14:35)
[2021-11-21] MEDS ORDERED: MAGNESIUM HYDROX 2400MG/30ML ORAL SUSPENSION 30 ML CUP PO PRN (14:35)
[2021-11-21] MEDS ORDERED: BENZOCAINE/MENTHOL (CHLORASEPTIC ) LOZENGE MM PRN (14:35)
[2021-11-21] MEDS ORDERED: MAG HYDROX/AL HYDROX/SIMETH 30 ML UNIT-DOSE CUP PO PRN (14:35)
[2021-11-21] MEDS ORDERED: LOPERAMIDE HCL 2 MG CAPSULE PO PRN (14:35)
[2021-11-21] MEDS ORDERED: IBUPROFEN 400 MG TABLET (FP) PO PRN (14:35)
[2021-11-21] MEDS ORDERED: ACETAMINOPHEN 325 MG TABLET (FP) PO PRN ×2 (14:35)
[2021-11-21] MEDS ORDERED: ONDANSETRON *ODT* 4 MG TABLET SL PRN (14:35)
[2021-11-21] MEDS ORDERED: BISMUTH SUBSALICYLATE 262 MG/15 ML BTL PO PRN (14:35)
[2021-11-21] MEDS ORDERED: DICYCLOMINE HCL 10 MG CAPSULE PO PRN (14:35)
[2021-11-21] MEDS ORDERED: NICOTINE 10 MG CARTRIDGE (INHALER) IH PRN (14:35)
[2021-11-21] MEDS ORDERED: ALBUTEROL SO4 HFA INHALER IH PRN (14:40)
[2021-11-21] MEDS: hydrOXYzine PAMOATE 25 MG CAPSULE (FP) PO SCH ×2 (18:31→22:33)
[2021-11-21] MEDS: amLODIPine BESYLATE 5 MG TABLET (FP) PO SCH (18:31)
[2021-11-21] MEDS: chlordiazePOXIDE HCL 25 MG CAPSULE PO PRN (18:31)
[2021-11-21] MEDS: GABAPENTIN 400 MG CAPSULE PO SCH ×2 (18:32→22:34)
[2021-11-21] MEDS ORDERED: QUEtiapine FUMARATE 50 MG TABLET PO SCH (22:00)
[2021-11-21] MEDS: MELATONIN 5 MG TABLETS PO SCH (22:33)
[2021-11-21] MEDS: chlordiazePOXIDE HCL 25 MG CAPSULE PO SCH (22:34)
[2021-11-21] MEDS: THIAMINE HCL 100 MG TABLET (FP) PO SCH (22:34)
[2021-11-22] MEDS: GABAPENTIN 400 MG CAPSULE PO SCH ×4 (05:25→23:30)
[2021-11-22] MEDS: chlordiazePOXIDE HCL 25 MG CAPSULE PO SCH ×4 (05:25→22:52)
[2021-11-22] MEDS: hydrOXYzine PAMOATE 25 MG CAPSULE (FP) PO SCH ×5 (05:25→22:49)
[2021-11-22] MEDS: PRENATAL VITAMINS W/ FOLIC ACID TABLET (FP) PO SCH (10:18)
[2021-11-22] MEDS: amLODIPine BESYLATE 5 MG TABLET (FP) PO SCH (10:18)
[2021-11-22] MEDS: chlordiazePOXIDE HCL 25 MG CAPSULE PO PRN ×2 (12:30→20:18)
[2021-11-22 13:07] LABS: HEMATOCRIT 39.7 % (35.4-49); HEMOGLOBIN 13.2 GM/dL (11.7-16.9); MCH 31.2 pg (25.7-33.7); MCHC 33.4 g/dl (32.0-35.9); MEAN CELL VOLUME 93.6 fl (80-96); PLATELET COUNT 280 10^3/uL (134-434); RBC 4.24 M/mm3 (4.00-5.60); RDW 15.3 % (11.9-15.9); WHITE BLOOD COUNT 6.1 K/mm3 (4.0-10.0)
[2021-11-22 13:31] LABS: CALCIUM 9.1 mg/dL (8.5-10.1)
[2021-11-22 13:32] LABS: ALBUMIN 3.5 g/dl (3.4-5.0); BLOOD UREA NITROGEN 19.9 mg/dL (7-18)
[2021-11-22 13:35] LABS: CREATININE 0.8 mg/dL (0.55-1.3)
[2021-11-22 13:36] LABS: TOT PROT 6.5 g/dl (6.4-8.2)
[2021-11-22 13:37] LABS: BILIRUBIN,TOTAL 0.4 mg/dL (0.2-1)
[2021-11-22] MEDS: MELATONIN 5 MG TABLETS PO SCH (22:49)
[2021-11-22] MEDS: THIAMINE HCL 100 MG TABLET (FP) PO SCH (22:49)
[2021-11-22] MEDS: QUEtiapine FUMARATE 50 MG TABLET PO SCH (22:50)
[2021-11-23] MEDS: hydrOXYzine PAMOATE 25 MG CAPSULE (FP) PO SCH ×5 (06:18→22:21)
[2021-11-23] MEDS: GABAPENTIN 400 MG CAPSULE PO SCH ×6 (06:18→22:20)
[2021-11-23] MEDS: chlordiazePOXIDE HCL 25 MG CAPSULE PO SCH ×4 (06:18→22:21)
[2021-11-23] MEDS: PRENATAL VITAMINS W/ FOLIC ACID TABLET (FP) PO SCH (10:48)
[2021-11-23] MEDS: amLODIPine BESYLATE 5 MG TABLET (FP) PO SCH (10:49)
[2021-11-23] MEDS: ESCITALOPRAM OXALATE 10 MG TABLET PO SCH (10:49)
[2021-11-23] MEDS: chlordiazePOXIDE HCL 25 MG CAPSULE PO PRN ×2 (14:00→19:30)
[2021-11-23] MEDS: QUEtiapine FUMARATE 50 MG TABLET PO SCH (22:20)
[2021-11-23] MEDS: MELATONIN 5 MG TABLETS PO SCH (22:21)
[2021-11-23] MEDS: THIAMINE HCL 100 MG TABLET (FP) PO SCH (22:21)
[2021-11-24] MEDS: chlordiazePOXIDE HCL 10 MG CAPSULE PO SCH ×4 (06:38→22:17)
[2021-11-24] MEDS: GABAPENTIN 400 MG CAPSULE PO SCH ×4 (06:39→22:17)
[2021-11-24] MEDS: hydrOXYzine PAMOATE 25 MG CAPSULE (FP) PO SCH ×5 (06:39→22:17)
[2021-11-24] MEDS: ESCITALOPRAM OXALATE 10 MG TABLET PO SCH (10:18)
[2021-11-24] MEDS: amLODIPine BESYLATE 5 MG TABLET (FP) PO SCH (10:18)
[2021-11-24] MEDS: PRENATAL VITAMINS W/ FOLIC ACID TABLET (FP) PO SCH (10:19)
[2021-11-24] MEDS: chlordiazePOXIDE HCL 10 MG CAPSULE PO PRN ×2 (13:55→20:30)
[2021-11-24] MEDS: MELATONIN 5 MG TABLETS PO SCH (22:16)
[2021-11-24] MEDS: THIAMINE HCL 100 MG TABLET (FP) PO SCH (22:16)
[2021-11-24] MEDS: QUEtiapine FUMARATE 50 MG TABLET PO SCH (22:17)
[2021-11-25] MEDS: GABAPENTIN 400 MG CAPSULE PO SCH ×3 (07:36→22:17)
[2021-11-25] MEDS: hydrOXYzine PAMOATE 25 MG CAPSULE (FP) PO SCH ×5 (07:36→22:17)
[2021-11-25] MEDS: chlordiazePOXIDE HCL 10 MG CAPSULE PO SCH ×2 (07:37→17:54)
[2021-11-25] MEDS: amLODIPine BESYLATE 5 MG TABLET (FP) PO SCH (09:42)
[2021-11-25] MEDS: ESCITALOPRAM OXALATE 10 MG TABLET PO SCH (09:42)
[2021-11-25] MEDS: METHOCARBAMOL 500 MG TABLET PO PRN ×2 (09:42→20:24)
[2021-11-25] MEDS: PRENATAL VITAMINS W/ FOLIC ACID TABLET (FP) PO SCH (09:43)
[2021-11-25] MEDS: MELATONIN 5 MG TABLETS PO SCH (22:16)
[2021-11-25] MEDS: THIAMINE HCL 100 MG TABLET (FP) PO SCH (22:17)
[2021-11-25] MEDS: QUEtiapine FUMARATE 50 MG TABLET PO SCH (22:17)
[2021-11-26] MEDS ORDERED: chlordiazePOXIDE HCL 10 MG CAPSULE PO ONE (05:00)
[2021-11-26] MEDS: hydrOXYzine PAMOATE 25 MG CAPSULE (FP) PO SCH ×2 (05:29→09:10)
[2021-11-26] MEDS: GABAPENTIN 400 MG CAPSULE PO SCH (05:29)
[2021-11-26 09:09] VITALS: BP 141/92; PULSE 110; TEMP 96.4
[2021-11-26] MEDS: ESCITALOPRAM OXALATE 10 MG TABLET PO SCH (09:10)
[2021-11-26] MEDS: PRENATAL VITAMINS W/ FOLIC ACID TABLET (FP) PO SCH (09:10)
[2021-11-26] MEDS: amLODIPine BESYLATE 5 MG TABLET (FP) PO SCH (09:10)
== END 2021-11-26 09:15 | disposition home or self-care (01) | DRG 897 ==
LOC: YASAS 11:35 → Y3N 17:19
PROVIDERS: ADMIT Allergy & Immunology; ATTEND Surgery
PROC: HZ2ZZZZ Detoxification Services for Substance Abuse Treatment (ICD-10-PCS; principal; 2021-11-21)
DX: F10.230 Alcohol dependence with withdrawal, uncomplicated (principal); F14.20 Cocaine dependence, uncomplicated; F17.210 Nicotine dependence, cigarettes, uncomplicated; I10 Essential (primary) hypertension; J45.20 Mild intermittent asthma, uncomplicated; E78.5 Hyperlipidemia, unspecified; Z88.6 Allergy status to analgesic agent; Z96.643 Presence of artificial hip joint, bilateral; Z56.0 Unemployment, unspecified
CPT/HCPCS: 36415; 80053; 85027; 86780; C9803-CS; U0003; U0005